=== PATIENT | male | born 1950 | race Two or more races ===

== ENCOUNTER 2020-08-09 11:20 | Emergency (ER) | payer MEDICARE, SELFPAY ==
[2020-08-09 12:00] VITALS: BP 119/79; PULSE 89; RESP 16; TEMP 36.9; O2SAT 95; BMI 31.7
--- NOTE | 2020-08-09 12:01 | ED.GENADULT ---
HPI - General Adult General Chief complaint: Extremity Problem <Amy Estrada NP - Last Filed: 08/09/20 13:51> Stated complaint: L FOOT PAIN <Amy Estrada NP - Last Filed: 08/09/20 13:51> Time Seen by Provider: 08/09/20 12:01 <Amy Estrada NP - Last Filed: 08/09/20 13:51> Source: patient <Amy Estrada NP - Last Filed: 08/09/20 13:51> Mode of arrival: ambulatory <Amy Estrada NP - Last Filed: 08/09/20 13:51> Limitations: no limitations <Amy Estrada NP - Last Filed: 08/09/20 13:51> History of Present Illness HPI narrative: 70yo male with past medical history of HTN here with left foot pain, swelling and redness x 1 week. No fevers, chills or body aches. No injury or trauma. <Amy Estrada NP - Last Filed: 08/09/20 13:51> Onset (ago): week(s) <Amy Estrada NP - Last Filed: 08/09/20 13:51> Location: lower extremity <Amy Estrada NP - Last Filed: 08/09/20 13:51> Radiation: non-radiation <Amy Estrada NP - Last Filed: 08/09/20 13:51> Severity: mild <Amy Estrada NP - Last Filed: 08/09/20 13:51> Quality: aching <Amy Estrada NP - Last Filed: 08/09/20 13:51> Pain Consistency: constant <Amy Estrada NP - Last Filed: 08/09/20 13:51> Relieving factors: none <Amy Estrada NP - Last Filed: 08/09/20 13:51> Exacerbating factors: none <Amy Estrada NP - Last Filed: 08/09/20 13:51> Associated symptoms: rash <Amy Estrada NP - Last Filed: 08/09/20 13:51> Treatments prior to arrival: none <Amy Estrada NP - Last Filed: 08/09/20 13:51> Related Data Home medications: Previous Rx's Medication Instructions Recorded doxycycline monohydrate 100 mg PO BID #14 cap 08/09/20 prednisone 40 mg PO DAILY #10 tab 08/09/20 <Amy Estrada NP - Last Filed: 08/09/20 13:51> Allergies/adverse reactions: Allergies Allergy/AdvReac Type Severity Reaction Status Date / Time No Known Allergies Allergy Unverified 04/07/20 15:15 <Amy Estrada NP - Last Filed: 08/09/20 13:51> Review of Systems Review of Systems: Yes all other systems are reviewed and are negative <Amy Estrada NP - Last Filed: 08/09/20 13:51> Constitutional: Constitutional: Reports no additional constitutional complaints, Denies body ache(s), Denies chills, Denies fever(s), Denies headache(s) and Denies weakness <Amy Estrada NP - Last Filed: 08/09/20 13:51> Eyes: Eyes: Reports no additional eye complaints and Denies change in vision <Amy Estrada NP - Last Filed: 08/09/20 13:51> ENT: Reports system reviewed and no additional complaints, except as documented, Denies dizziness, Denies headache(s), Denies nasal congestion, Denies nasal discharge and Denies neck pain <Amy Estrada NP - Last Filed: 08/09/20 13:51> Cardiovascular: Cardiovascular: Reports no additional cardiovascular complaints, Denies chest pain, Denies leg edema and Denies dyspnea <Amy Estrada NP - Last Filed: 08/09/20 13:51> Respiratory: Respiratory: Reports no additional respiratory complaints, Denies cough and Denies dyspnea <Amy Estrada NP - Last Filed: 08/09/20 13:51> Gastrointestinal: Gastrointestinal: Reports no additional gastrointestinal complaints, Denies abdominal pain, Denies diarrhea, Denies nausea and Denies vomiting <Amy Estrada NP - Last Filed: 08/09/20 13:51> Genitourinary: Genitourinary: Denies urinary incontinence <Amy Estrada NP - Last Filed: 08/09/20 13:51> Musculoskeletal: Musculoskeletal: Reports no additional musculoskeletal complaints, Denies back pain, Reports arthralgias, Reports joint swelling, Denies neck pain, Denies numbness and Denies tingling <Amy Estrada NP - Last Filed: 08/09/20 13:51> Integumentary/Breasts: Skin/Breast: Reports system reviewed and no additional complaints, except as docu and Denies rash <Amy Estrada NP - Last Filed: 08/09/20 13:51> Neurologic: Reports system reviewed and no additional complaints, except as documented, Denies Abnormal speech present, Denies dizziness, Denies headache(s), Denies numbness, Denies tingling and Denies weakness <Amy Estrada NP - Last Filed: 08/09/20 13:51> [facility] Past Medical History Attestation statement: The following information was validated with the patient. <Amy Estrada NP - Last Filed: 08/09/20 13:51> Source: old records reviewed and nursing notes reviewed <Amy Estrada NP - Last Filed: 08/09/20 13:51> Medical History: Medical History Hypertension <Amy Estrada NP - Last Filed: 08/09/20 13:51> Social History Social History: Social History Advance Directives: No Advance Directives Information Provided: No <Amy Estrada NP - Last Filed: 08/09/20 13:51> Physical Exam Vital Signs: Vital Signs: Last Vital Signs Temp 98.4 F 08/09/20 12:00 Pulse 89 08/09/20 12:00 Resp 16 08/09/20 12:00 BP 119/79 08/09/20 12:00 Pulse Ox 95 08/09/20 12:00 Body Mass Index 31.7 <Amy Estrada NP - Last Filed: 08/09/20 13:51> Vital Signs: Last Vital Signs Temp 98.4 F 08/09/20 12:00 Pulse 89 08/09/20 12:00 Resp 16 08/09/20 12:00 BP 119/79 08/09/20 12:00 Pulse Ox 95 08/09/20 12:00 Body Mass Index 31.7 <Dc Garcia MD - Last Filed: 08/17/20 07:14> Const: General: cooperative, healthy appearing, comfortable and no acute distress <Amy Estrada NP - Last Filed: 08/09/20 13:51> Orientation/consciousness: patient oriented x3 <Amy Estrada NP - Last Filed: 08/09/20 13:51> Limitations: no limitations <Amy Estrada NP - Last Filed: 08/09/20 13:51> HENMT: Head: Yes normal to inspection <Amy Estrada NP - Last Filed: 08/09/20 13:51> Ears: hearing grossly normal bilaterally <Amy Estrada NP - Last Filed: 08/09/20 13:51> General nose exam: Normal external nose present <Amy Estrada NP - Last Filed: 08/09/20 13:51> Face and sinus: Yes normal facial exam <Amy Estrada NP - Last Filed: 08/09/20 13:51> Mouth: Normal oral and palatal mucosa present <Amy Estrada NP - Last Filed: 08/09/20 13:51> Throat: Yes posterior oropharynx normal <Amy Estrada NP - Last Filed: 08/09/20 13:51> Eyes: General: appearance normal, both eyes and all related structures <Amy Estrada NP - Last Filed: 08/09/20 13:51> Pupils: Equal, round and reactive pupils present <Amy Estrada NP - Last Filed: 08/09/20 13:51> Neck: Neck: Yes normal visual inspection <Amy Estrada NP - Last Filed: 08/09/20 13:51> Chest: Chest palpation & inspection: normal inspection of the chest <Amy Estrada NP - Last Filed: 08/09/20 13:51> Resp: Effort & Inspection: normal respiratory effort <Amy Estrada NP - Last Filed: 08/09/20 13:51> Auscultation: clear to auscultation bilaterally <Amy Estrada NP - Last Filed: 08/09/20 13:51> Cardio: Rate: regular rate <Amy Estrada [employer] - Last Filed: 08/09/20 13:51> Rhythm: regular rhythm <Amy Estrada NP - Last Filed: 08/09/20 13:51> Peripheral pulses: Peripheral pulses 2+ throughout <Amy Estrada NP - Last Filed: 08/09/20 13:51> GI: Inspection: Yes normal to inspection <Amy Estrada NP - Last Filed: 08/09/20 13:51> Palpation (GI): Soft to palpation and nontender <Amy Estrada [employer] - Last Filed: 08/09/20 13:51> Auscultation: normal bowel sounds <Amy Estrada NP - Last Filed: 08/09/20 13:51> Back/Spine/Pelvis: Thoracic/Lumbar Spine: thoracic and lumbar spine normal to inspection <Amy Estrada NP - Last Filed: 08/09/20 13:51> Skin: General skin exam: no rashes or lesions noted <Amy Estrada NP - Last Filed: 08/09/20 13:51> Neuro: General: patient oriented x3, no focal motor deficits and normal sensation to monofilament <Amy Estrada NP - Last Filed: 08/09/20 13:51> Cranial nerves: Yes Equal, round and reactive pupils present <Amy Esrtada NP - Last Filed: 08/09/20 13:51> Cognition (Neuro): normal cognition <Amy Estrada NP - Last Filed: 08/09/20 13:51> Speech: No Abnormal speech present <Amy Estrada NP - Last Filed: 08/09/20 13:51> Gait exam (Neuro): Normal gait present <Amy Estrada NP - Last Filed: 08/09/20 13:51> Motor exam (neuro): 5/5 motor strength present throughout <Amy Estrada NP - Last Filed: 08/09/20 13:51> Extrem: Other: To the distal dorsal left foot there is redness and swelling, pain more localized over the 1st proximal MTP but diffuse tenderness and redness and swelling. FROM, Palpabe distal pulse. <Amy Estrada NP - Last Filed: 08/09/20 13:51> Course Course Course Narrative: 1200-70 yo male with past medical history of HTN here with left foot swelling, redness, pain x 1 week with no injury or trauma. Will check x-ray. 1345-X-rays shows no acute bony abnormality. Exam c/w with cellulitis, may also have component of underlying gout as well. No fevers, chills. No circumferential swelling or redness. Reviewed worrisome signs/symptoms with patient and when to return to ED. Comfortable with discharge home. <Amy Estrada NP - Last Filed: 08/09/20 13:51> I have reviewed the chart <Dc Garcia MD - Last Filed: 08/17/20 07:14> Medical Decision Making Medical Records Medical records reviewed: Yes I reviewed the patient's medical records. <Amy Estrada NP - Last Filed: 08/09/20 13:51> Lab Data Lab results reviewed: Yes I reviewed the patient's lab results. <Amy Estrada NP - Last Filed: 08/09/20 13:51> Imaging Data foot xray: Attestation: I personally reviewed and interpreted this imaging study as follows: <Amy Estrada NP - Last Filed: 08/09/20 13:51> Radiologist's impression: INATION: XR FOOT, LEFT CLINICAL INFORMATION: Swelling and redness. COMPARISON: None TECHNIQUE: AP, lateral, and oblique views of the left foot. FINDINGS: There is hallux valgus deformity first MTP joint. No visible acute fracture, dislocation or subluxation seen. The ankle mortise and subtalar joints are normal. No bony erosive changes seen. Mild distal dorsal foot soft tissue swelling is noted XR/XR foot LT 2V IMPRESSION: Mild distal dorsal foot soft tissue swelling. No visible acute fracture or dislocation. Mild hallux valgus deformity first MTP joint. <Amy Estrada NP - Last Filed: 08/09/20 13:51> Discharge Plan Discharge Clinical Impression: Cellulitis, Gout <Amy Estrada NP - Last Filed: 08/09/20 13:51> Patient Disposition: Home, Self-Care <Amy Estrada NP - Last Filed: 08/09/20 13:51> Instructions: Cellulitis (ED), Gout (ED) <Amy Estrada NP - Last Filed: 08/09/20 13:51> Additional Instructions: Return for fever 100.4, redness up the leg as discussed <Amy Estrada NP - Last Filed: 08/09/20 13:51> Prescriptions: New prednisone 20 mg tablet 40 mg PO DAILY Qty: 10 RF: 0 doxycycline monohydrate 100 mg capsule 100 mg PO BID Qty: 14 RF: 0 <Amy Estrada NP - Last Filed: 08/09/20 13:51> Interventions: ED Discharge Assessment Last Done: 08/09/20 13:20 <Amy Estrada NP - Last Filed: 08/09/20 13:51> Discharge Date/Time: 08/09/20 13:21 <Amy Estrada NP - Last Filed: 08/09/20 13:51>
--- NOTE | 2020-08-09 12:05 | XR_ITS ---
EXAMINATION: XR FOOT, LEFT CLINICAL INFORMATION: Swelling and redness. COMPARISON: None TECHNIQUE: AP, lateral, and oblique views of the left foot. FINDINGS: There is hallux valgus deformity first MTP joint. No visible acute fracture, dislocation or subluxation seen. The ankle mortise and subtalar joints are normal. No bony erosive changes seen. Mild distal dorsal foot soft tissue swelling is noted XR/XR foot LT 2V IMPRESSION: Mild distal dorsal foot soft tissue swelling. No visible acute fracture or dislocation. Mild hallux valgus deformity first MTP joint.
== END 2020-08-09 13:21 | disposition home or self-care (01) ==
LOC: HO.ED 13:14
PROVIDERS: Emergency Provider Emergency Medicine
DX: L03.116 Cellulitis of left lower limb (principal); M10.072 Idiopathic gout, left ankle and foot; I10 Essential (primary) hypertension
CPT/HCPCS: 73620; 99283

== ENCOUNTER 2021-05-04 09:51 | Emergency (ER) | payer MEDICARE, OTHER, SELFPAY ==
[2021-05-04 10:31] VITALS: BP 140/83; PULSE 93; RESP 18; TEMP 36.9; O2SAT 96; BMI 32.3
--- NOTE | 2021-05-04 10:39 | PC.NURSE ---
pt reports he gets stomach pain and burning only when he eats. he states he drank 2 beers yesterday and did not have any of the reported symptoms. pt denies pain at this moment. he states this is new, he has never experienced this before. pt alert and oriented, vss.
[2021-05-04] MEDS: Lidocaine HCl Viscous 2 % 15 ML SOLUTION MUCOUS MEM (11:13)
[2021-05-04] MEDS: Magnesium Hydrox/Alum Hydrox 30 ML ORAL.SUSP PO (11:13)
[2021-05-04 11:19] LABS: MANUAL DIFF FLAG NO
[2021-05-04 11:23] LABS: Basophils Percent Auto 0.5 % (0-2); Eosinophils Absolute Auto 0.1 X10*3/uL (0.0-0.4); Eosinophils Percent Auto 1.4 % (0-4); Hematocrit 42.7 % (42-52); Hemoglobin 14.8 g/dl (14.0-18.0); Imm Gran Abs Auto 0.01 X10*3/uL (0.00-0.03); Imm Gran Pct Auto 0.2 % (0.0-0.4); Lymphocytes Percent Auto 35.8 % (20-40); Mean Corpuscular HGB Conc 34.7 g/dl (31.0-36.0); Mean Corpuscular Hemoglobin 31.6 pg (27.0-33.0); Mean Corpuscular Volume 91.2 fL (80-98); Mean Platelet Volume 11.8 fL (9.4-12.4); Monocytes Absolute Auto 0.7 X10*3/uL (0.1-1.2); Monocytes Percent Auto 13.1 % (2-11); Neutrophils Absolute Auto 2.8 X10*3/uL (2.0-8.3); Platelet Count 200 X10*3/uL (160-400); Red Blood Count 4.68 X10*6/uL (4.60-5.80); White Blood Count 5.7 X10*3/uL (4.8-10.8)
[2021-05-04 11:39] LABS: Alanine Aminotransferase 62 U/L (0-40); Albumin Level 4.5 g/dL (3.5-5.0); Alkaline Phosphatase 57 U/L (39-117); Anion Gap 14 (12-20); Aspartate Amino Transferase 62 U/L (5-37); Bilirubin Direct 0.4 mg/dL (0.0-0.5); Bilirubin Total 0.6 mg/dL (0.0-1.0); Blood Urea Nitrogen 12 mg/dL (9-16); Calcium 10.2 mg/dL (8.4-10.2); Carbon Dioxide 29 mmol/L (22-29); Chloride 97 mmol/L (96-108); Creatinine Clr Calc Pharmacy 74.2; Estimated Glomerular Filt Rate > 60; Glucose Random 111 mg/dL (60-115); Lipase 29 U/L (8-78); Potassium 3.6 mmol/L (3.3-5.1); Sodium 136 mmol/L (135-145); Total Protein 7.3 g/dL (6.5-8.0)
--- NOTE | 2021-05-04 11:50 | ED.ABDPAIN ---
HPI - Abdominal Pain General Chief Complaint: Abdominal Pain Stated Complaint: abd pain Time Seen by Provider: 05/04/21 10:43 Source: patient Mode of arrival: ambulatory Limitations: no limitations History of Present Illness HPI narrative: Patient comes emergency room complaining of burning pain with swallowing. Patient states it started approximately 4 days ago. Patient states that sometimes when he swallows he has a burning sensation but it does not happen always, seems to be worse with warm/hot fluids and meals. Patient states that he has a burning sensation in his stomach right after eating. Patient denies significant abdominal pain, only the burning sensation radiating up his esophagus. Patient denies vomiting, no diarrhea, no fever chills Related Data Previous Rx's Medication Instructions Recorded doxycycline monohydrate 100 mg 100 mg PO BID #14 cap 08/09/20 capsule prednisone 20 mg tablet 40 mg PO DAILY #10 tab 08/09/20 omeprazole 20 mg capsule,delayed 20 mg PO DAILY #14 cap 05/04/21 release Allergies Allergy/AdvReac Type Severity Reaction Status Date / Time No Known Allergies Allergy Unverified 12/22/20 14:44 [No Known Allergies*] Review of Systems Review of Systems Constitutional : No Weight loss, No Fever, No Chills, No Night Sweats, No Fatigue, No Malaise ENT/Mouth : No Hearing loss, No Ear Pain, No Nasal Congestion, No Sinus Pain, No Hoarseness, No sore throat, No Rhinorrhea, No Swallowing Difficulty Eyes: No Eye Pain, No Swelling, No Redness, No Foreign Body, No Discharge, No Vision Changes Cardiovascular : No Chest Pain, No SOB, No Dyspnea on Exertion, No Orthopnea, No Edema, No Palpitations Respiratory : No Cough, No Sputum, No Wheezing, No Smoke Exposure, No Dyspnea Gastrointestinal : No Nausea, No Vomiting, No Diarrhea, No Constipation, complaining esophageal and left upper quadrant burning sensation, No Hematochezia, No Melena Genitourinary : no irregular bleeding, No Dysuria, No Urinary Frequency, No Hematuria, No Urinary Incontinence, No Urgency, No Flank Pain, No Urinary Flow Changes, No Hesitancy Musculoskeletal : No joint pain, No Myalgias, No Joint Swelling Skin : No Skin Lesions, No rash Neuro : No Weakness, No Numbness, No Paresthesias, No Loss of Consciousness, No Dizziness, No Headache Psych : No Anxiety/Panic, No Depression, No SI/HI/AH/VH, No Social Issues, Heme/Lymph: No Bruising, No Bleeding,No Lymphadenopathy Endocrine : No Polyuria, No Polydipsia, No Temperature Intolerance Physical Exam Vital Signs: Vital Signs: Last Vital Signs Temp 98.5 F 05/04/21 10:31 Pulse 93 05/04/21 10:31 Resp 18 05/04/21 10:31 BP 140/83 H 05/04/21 10:31 Pulse Ox 96 05/04/21 10:31 Body Mass Index 32.3 Const: Other: Appearance: Alert. Oriented X3. No acute distress. Eyes: Pupils equal, round and reactive to light. ENT: Pharynx normal. Neck: Normal inspection. Neck supple. No lymph nodes noted. No crepitus CVS: Normal heart rate and rhythm. Pulses normal. Normal S1 and S2 Respiratory: No respiratory distress. Breath sounds normal. No Wheezing. No rales Abdomen: Soft and nontender. No rigidity. No distention. good BS x4 Skin: Skin warm and dry. Normal skin color. Normal skin turgor. Extremities: No lower extremity edema. No lower extremity edema. No Lacerations. No Rash Neuro: Oriented X 3. No motor deficit. No sensory deficit. Moving all extermities. No slurred speech. Course Course Course Narrative: Patient states that after GI cocktail, he felt much better. Patient likely having gastritis versus peptic ulcer disease. Patient instructed to follow-up with his primary care physician MDM - Abdominal Pain Lab Data Result diagrams: 05/04/21 11:15 05/04/21 11:15 Labs: Lab Results 05/04/21 05/04/21 Range/Units 11:15 11:15 WBC 5.7 (4.8-10.8) X10*3/uL RBC 4.68 (4.60-5.80) X10*6/uL Hgb 14.8 (14.0-18.0) g/dl Hct 42.7 (42-52) % MCV 91.2 (80-98) fL MCH 31.6 (27.0-33.0) pg MCHC 34.7 (31.0-36.0) g/dl RDW 14.0 (11.0-16.0) % Plt Count 200 (160-400) X10*3/uL MPV 11.8 (9.4-12.4) fL Immature Gran % (Auto) 0.2 (0.0-0.4) % Neut % (Auto) 49.0 (45-73) % Lymph % (Auto) 35.8 (20-40) % [place] % (Auto) 13.1 H (2-11) % Eos % (Auto) 1.4 (0-4) % Baso % (Auto) 0.5 (0-2) % Lymph # (Auto) 2.0 (1.2-4.9) X10*3/uL [place] # (Auto) 0.7 (0.1-1.2) X10*3/uL Eos # (Auto) 0.1 (0.0-0.4) X10*3/uL Baso # (Auto) 0.0 (0.0-0.2) X10*3/uL Abs Immat Gran (auto) 0.01 (0.00-0.03) X10*3/uL Absolute Neuts (auto) 2.8 (2.0-8.3) X10*3/uL Absolute Nucleated RBC 0.000 (0.0-0.012) X10*3/uL Nucleated RBC % (auto) 0.0 (0.0-0.2) /100WBC Sodium 136 (135-145) mmol/L Potassium 3.6 (3.3-5.1) mmol/L Chloride 97 (96-108) mmol/L Carbon Dioxide 29 (22-29) mmol/L Anion Gap 14 (12-20) BUN 12 (9-16) mg/dL Creatinine 0.85 (0.5-1.4) mg/dL Estim Creat Clear Calc 74.2 Estimated GFR > 60 Random Glucose 111 (60-115) mg/dL Calcium 10.2 (8.4-10.2) mg/dL Total Bilirubin 0.6 (0.0-1.0) mg/dL Direct Bilirubin 0.4 (0.0-0.5) mg/dL AST 62 H (5-37) U/L ALT 62 H (0-40) U/L Alkaline Phosphatase 57 (39-117) U/L Total Protein 7.3 (6.5-8.0) g/dL Albumin 4.5 (3.5-5.0) g/dL Lipase 29 (8-78) U/L Discharge Plan Discharge Clinical Impression: Gastritis Patient Disposition: Home, Self-Care Instructions: Gastritis (ED) Additional Instructions: Please follow-up with your primary care physician tomorrow. If you have any worsening or new symptoms, please return to the emergency room or call 911 Prescriptions: New omeprazole 20 mg capsule,delayed release(DR/EC) 20 mg PO DAILY Qty: 14 RF: 0 No Action prednisone 20 mg tablet 40 mg PO DAILY Qty: 10 RF: 0 doxycycline monohydrate 100 mg capsule 100 mg PO BID Qty: 14 RF: 0 PMFSH Past Medical History Medical History Hypertension Social History Social History (System 12/22/20 @ 14:44 by Aleshia Gilliam) Advance Directives: No Advance Directives Information Provided: No
[2021-05-04 12:47] VITALS: BP 125/74; PULSE 89; RESP 18; O2SAT 98
--- NOTE | 2021-05-04 12:55 | PC.NURSE ---
pt medically cleared for discharge, vss, pt alert and oriented. discharge summary given and reviewed with pt. no complaints.
== END 2021-05-04 12:56 | disposition home or self-care (01) ==
PROVIDERS: Emergency Provider Emergency Medicine; PCP Internal Medicine
DX: K29.70 Gastritis, unspecified, without bleeding (principal)
CPT/HCPCS: 36415; 80048; 80076; 83690; 85025; 99284

== ENCOUNTER 2021-08-15 11:31 | Emergency (ER) | payer MEDICARE, OTHER, SELFPAY ==
--- NOTE | ~2021-08-15 | XR_ITS ---
EXAMINATION: XR RIBS, LEFT CLINICAL INFORMATION: [place] crack. Left chest wall pain. COMPARISON: Previous chest x-ray most recent September 2017 TECHNIQUE: 3 views of the left ribs were obtained. FINDINGS: The cardiac and mediastinal contours are normal. The lungs are clear. There is slight blunting at the left lateral costophrenic angle questionable very small left pleural effusion or pleural thickening. There is no pneumothorax. No definite rib fracture is seen. There is slight angulation of the left anterior seventh rib questionable for evidence of trauma. Bony structures are otherwise unremarkable. XR/XR ribs LT min 3V w CXR1V IMPRESSION: Question left anterior seventh rib fracture.
[2021-08-15 11:42] VITALS: BP 148/83; PULSE 85; RESP 19; TEMP 36.6; O2SAT 97; BMI 32.1
--- NOTE | 2021-08-15 12:09 | ED_ITS ---
HPI - General Adult General Chief complaint: General Medical <Amy Estrada NP - Last Filed: 08/15/21 13:56> Stated complaint: rib pain <JUAN DANIEL Jaeger Last Filed: 08/15/21 13:56> Time Seen by Provider: 08/15/21 11:48 <Amy Estrada NP - Last Filed: 08/15/21 13:56> Source: patient <Amy Estrada NP - Last Filed: 08/15/21 13:56> Mode of arrival: ambulatory <JUAN DANIEL Jaeger Last Filed: 08/15/21 13:56> Limitations: no limitations <JUAN DANIEL Jaeger Last Filed: 08/15/21 13:56> History of Present Illness HPI narrative: 71-year-old male here with reports of left-sided rib pain after bending down and hearing a crack sensation on Saturday. Patient now tells me his pain which is worsened with laying down and position changes. No shortness of breath, cough, fevers, chills, leg swelling or pain. No anticoagulation use. No abdominal pain, vomiting or diarrhea <JUAN DANIEL Jaeger Last Filed: 08/15/21 13:56> Related Data Home medications: Previous Rx's Medication Instructions Recorded doxycycline monohydrate 100 mg 100 mg PO BID #14 cap 08/09/20 capsule prednisone 20 mg tablet 40 mg PO DAILY #10 tab 08/09/20 omeprazole 20 mg capsule,delayed 20 mg PO DAILY #14 cap 05/04/21 release lidocaine 5 % topical patch 1 patch TOPICAL DAILY #15 ea 08/15/21 (Lidoderm) <JUAN DANIEL Jaeger Last Filed: 08/15/21 13:56> Allergies/adverse reactions: Allergies Allergy/AdvReac Type Severity Reaction Status Date / Time No Known Allergies Allergy Unverified 12/22/20 14:44 [No Known Allergies*] <JUAN DANIEL Jaeger Last Filed: 08/15/21 13:56> Review of Systems Review of Systems: Yes all other systems are reviewed and are negative <JUAN DANIEL Jaeger Last Filed: 08/15/21 13:56> Constitutional: Constitutional: Reports no additional constitutional complaints, Denies body ache(s), Denies chills, Denies fever(s), Denies headache(s) and Denies weakness <Amy Estrada NP - Last Filed: 08/15/21 13:56> Eyes: Eyes: Reports no additional eye complaints and Denies change in vision <Amy Estrada GAME ROOM ATTENDANT - Last Filed: 08/15/21 13:56> ENT: Reports system reviewed and no additional complaints, except as documented, Denies dizziness, Denies headache(s), Denies nasal congestion, Denies nasal discharge and Denies neck pain <Amy Estrada GAME ROOM ATTENDANT - Last Filed: 08/15/21 13:56> Cardiovascular: Cardiovascular: Reports no additional cardiovascular complaints, Reports chest pain, Denies leg edema and Denies dyspnea <Amy Estrada GAME ROOM ATTENDANT - Last Filed: 08/15/21 13:56> Respiratory: Respiratory: Reports no additional respiratory complaints, Denies cough and Denies dyspnea <Amy Estrada GAME ROOM ATTENDANT - Last Filed: 08/15/21 13:56> Gastrointestinal: Gastrointestinal: Reports no additional gastrointestinal complaints, Denies abdominal pain, Denies diarrhea, Denies nausea and Denies vomiting <Amy Estrada GAME ROOM ATTENDANT - Last Filed: 08/15/21 13:56> Genitourinary: Genitourinary: Denies urinary incontinence <Amy Estrada GAME ROOM ATTENDANT - Last Filed: 08/15/21 13:56> Musculoskeletal: Musculoskeletal: Reports no additional musculoskeletal complaints, Denies back pain, Denies arthralgias, Denies joint swelling, Denies neck pain, Denies numbness and Denies tingling <Amy Estrada GAME ROOM ATTENDANT - Last Filed: 08/15/21 13:56> Integumentary/Breasts: Skin/Breast: Reports system reviewed and no additional complaints, except as docu and Denies rash <Amy Estrada GAME ROOM ATTENDANT - Last Filed: 08/15/21 13:56> Neurologic: Reports system reviewed and no additional complaints, except as documented, Denies Abnormal speech present, Denies dizziness, Denies headache( s), Denies numbness, Denies tingling and Denies weakness <Amy Estrada NP - Last Filed: 08/15/21 13:56> PMFSH Past Medical History Attestation statement: The following information was validated with the patient. <Amy Estrada NP - Last Filed: 08/15/21 13:56> Source: old records reviewed and nursing notes reviewed <Amy Estrada NP - Last Filed: 08/15/21 13:56> Medical History: Medical History Hypertension <Amy Estrada NP - Last Filed: 08/15/21 13:56> Social History Social History: Social History Advance Directives: No Advance Directives Information Provided: No <Amy Estrada NP - Last Filed: 08/15/21 13:56> Physical Exam Vital Signs: Vital Signs: Last Vital Signs Temp 98 F 08/15/21 11:42 Pulse 85 08/15/21 11:42 Resp 19 08/15/21 11:42 BP 148/83 H 08/15/21 11:42 Pulse Ox 97 08/15/21 11:42 BMI result Body Mass Index 32.1 <Amy Estrada NP - Last Filed: 08/15/21 13:56> Vital Signs: Last Vital Signs Temp 98 F 08/15/21 11:42 Pulse 85 08/15/21 11:42 Resp 08/15/21 11:42 BP 148/83 H 08/15/21 11:42 Pulse Ox 97 08/15/21 11:42 BMI result Body Mass Index 32.1 <Jaime Ruiz MD - Last Filed: 08/15/21 14:01> Const: General: cooperative, healthy appearing, comfortable and no acute distress <Amy Estrada NP - Last Filed: 08/15/21 13:56> Orientation/consciousness: patient oriented x3 <Amy Estrada NP - Last Filed: 08/15/21 13:56> Limitations: no limitations <Amy Estrada NP - Last Filed: 08/15/21 13:56> HENMT: Head: Yes normal to inspection <Amy Estrada NP - Last Filed: 08/15/21 13:56> Ears: hearing grossly normal bilaterally <Amy Estrada NP - Last Filed: 08/15/21 13:56> General nose exam: Normal external nose present <Amy Estrada NP - Last Filed: 08/15/21 13:56> Face and sinus: Yes normal facial exam <Amy Estrada NP - Last Filed: 08/15/21 13:56> Mouth: Normal oral and palatal mucosa present <Amy Estrada NP - Last Filed: 08/15/21 13:56> Throat: Yes posterior oropharynx normal <Amy Estrada NP - Last Filed: 08/15/21 13:56> Eyes: General: appearance normal, both eyes and all related structures <Amy Estrada NP - Last Filed: 08/15/21 13:56> Pupils: Equal, round and reactive pupils present <Amy Estrada NP - Last Filed: 08/15/21 13:56> Neck: Neck: Yes normal visual inspection <Amy Estrada NP - Last Filed: 08/15/21 13:56> Chest: Chest palpation & inspection: normal inspection of the chest and tenderness (Left lateral chest wall/ribs. No ecchymosis, crepitus or deformity) <Amy Estrada NP - Last Filed: 08/15/21 13:56> Resp: Effort & Inspection: normal respiratory effort <Amy Estrada NP - Last Filed: 08/15/21 13:56> Auscultation: clear to auscultation bilaterally <Amy Estrada NP - Last Filed: 08/15/21 13:56> Cardio: Rate: regular rate <Amy Estrada NP - Last Filed: 08/15/21 13:56> Rhythm: regular rhythm <Amy Estrada NP - Last Filed: 08/15/21 13:56> Peripheral pulses: Peripheral pulses 2+ throughout <Amy Estrada NP - Last Filed: 08/15/21 13:56> GI: Inspection: Yes normal to inspection <Amy Estrada NP - Last Filed: 08/15/21 13:56> Palpation (GI): Soft to palpation and nontender <Amy Estrada NP - Last Filed: 08/15/21 13:56> Auscultation: normal bowel sounds <Amy Estrada NP - Last Filed: 08/15/21 13:56> Back/Spine/Pelvis: Thoracic/Lumbar Spine: thoracic and lumbar spine normal to inspection <Amy Estrada NP - Last Filed: 08/15/21 13:56> Skin: General skin exam: no rashes or lesions noted <Amy Estrada NP - Last Filed: 08/15/21 13:56> Neuro: General: patient oriented x3, no focal motor deficits and normal sensation to monofilament <Amy Estrada NP - Last Filed: 08/15/21 13:56> Cranial nerves: Yes Equal, round and reactive pupils present <Amy Estrada NP - Last Filed: 08/15/21 13:56> Cognition (Neuro): normal cognition <Amy Estrada NP - Last Filed: 08/15/21 13:56> Speech: No Abnormal speech present <Amy Estrada NP - Last Filed: 08/15/21 13:56> Gait exam (Neuro): Normal gait present <Amy Estrada NP - Last Filed: 08/15/21 13:56> Motor exam (neuro): 5/5 motor strength present throughout <Amy Estrada NP - Last Filed: 08/15/21 13:56> Extrem: General: Yes normal to inspection, Yes no pedal edema and Yes no calf tenderness <Amy Estrada NP - Last Filed: 08/15/21 13:56> Course Course Course Narrative: 71-year-old male here with left-sided rib pain after bending down and hearing a crack sensation on Saturday. Will check x-rays. 1330-x-ray shows solitary rib fracture. Patient given incentive spirometer for home. Reviewed worrisome signs and symptoms of when to return to the emergency department. Comfortable discharge home. <Amy Estrada NP - Last Filed: 08/15/21 13:56> Medical Decision Making Medical Records Medical records reviewed: Yes I reviewed the patient's medical records. <Amy Estrada NP - Last Filed: 08/15/21 13:56> Lab Data Lab results reviewed: Yes I reviewed the patient's lab results. <JUAN DANIEL Jaeger Last Filed: 08/15/21 13:56> Imaging Data Chest x-ray: Attestation: I personally reviewed and interpreted this imaging study as follows: <JUAN DANIEL Jaeger Last Filed: 08/15/21 13:56> Radiologist's impression: FINDINGS: The cardiac and mediastinal contours are normal. The lungs are clear. There is slight blunting at the left lateral costophrenic angle questionable very small left pleural effusion or pleural thickening. There is no pneumothorax. No definite rib fracture is seen. There is slight angulation of the left anterior seventh rib questionable for evidence of trauma. Bony structures are otherwise unremarkable. XR/XR ribs LT min 3V w CXR1V IMPRESSION: Question left anterior seventh rib fracture. <Amy Estrada NP - Last Filed: 08/15/21 13:56> Discharge Plan Discharge Clinical Impression: Closed rib fracture Qualifiers: Encounter type: initial encounter Rib fracture type: single rib Laterality: left Qualified Code(s): S22.32XA - Fracture of one rib, left side, initial encounter for closed fracture <Amy Estrada NP - Last Filed: 08/15/21 13:56> Patient Disposition: Home, Self-Care <JUAN DANIEL Jaeger Last Filed: 08/15/21 13:56> Instructions: Rib Fracture (ED) <Amy Estrada NP - Last Filed: 08/15/21 13:56> Additional Instructions: Use the incentive spirometer while awake Seek care for fever or difficulty breathing Continue motrin for pain as needed <JUAN DANIEL Jaeger Last Filed: 08/15/21 13:56> Prescriptions: New lidocaine [Lidoderm] 5 % adhesive patch,medicated 1 patch topical DAILY Qty: 15 RF: 0 No Action prednisone 20 mg tablet 40 mg PO DAILY Qty: 10 RF: 0 doxycycline monohydrate 100 mg capsule 100 mg PO BID Qty: 14 RF: 0 omeprazole 20 mg capsule,delayed release(DR/EC) 20 mg PO DAILY Qty: 14 RF: 0 <Amy Estrada NP - Last Filed: 08/15/21 13:56> Referrals: Physician,None [Primary Care Provider] - 2 days <Amy Estrada NP - Last Filed: 08/15/21 13:56> Print Language: Sami <Amy Estrada NP - Last Filed: 08/15/21 13:56>
== END 2021-08-15 14:08 | disposition home or self-care (01) ==
PROVIDERS: Emergency Provider Emergency Medicine
DX: S22.32XA Fracture of one rib, left side, initial encounter for closed fracture (principal); R07.81 Pleurodynia; W18.30XA Fall on same level, unspecified, initial encounter; Y93.9 Activity, unspecified; Y92.009 Unspecified place in unspecified non-institutional (private) residence as the place of occurrence of the external cause; Y99.9 Unspecified external cause status; Z79.899 Other long term (current) drug therapy
CPT/HCPCS: 71101; 99283; 99284

== ENCOUNTER 2022-01-03 11:10 | Emergency (ER) | payer MEDICARE, OTHER, SELFPAY ==
--- NOTE | ~2022-01-03 | XR_ITS ---
EXAMINATION: XR CHEST CLINICAL INFORMATION: Bilateral leg swelling COMPARISON: None TECHNIQUE: 2 views of the chest were obtained. FINDINGS: No significant abnormality is noted involving the heart, lungs, mediastinum, bony thorax or soft tissues. XR/XR chest 2V IMPRESSION: Unremarkable examination.
--- NOTE | ~2022-01-03 | US_ITS ---
EXAMINATION: US VENOUS ULTRASOUND WITH DOPPLER LOWER EXTREMITY, BILATERAL CLINICAL INFORMATION: Lower extremity edema. Right greater than left. COMPARISON: None TECHNIQUE: Ultrasound of the deep veins is performed from the hip to the calf with compression sonography and color and pulse Doppler assessment. Spectral analysis with color-flow imaging is performed. FINDINGS: RIGHT: There is normal venous compression and respiratory variation and augmented flow. The visualized common femoral vein, superficial femoral vein, profunda femoral vein, popliteal vein, and the trifurcation region shows no evidence of deep venous thrombosis. There is no significant popliteal fossa cyst. LEFT: There is normal venous compression and respiratory variation and augmented flow. The visualized common femoral vein, superficial femoral vein, profunda femoral vein, popliteal vein, and the trifurcation region shows no evidence of deep venous thrombosis. There is no significant popliteal fossa cyst. If the patient's symptoms persist, followup ultrasound in 5 days 7 days might be of value to exclude proximal propagation from a non-visualized calf vein. US/US venous duplex LE BI IMPRESSION: No DVT demonstrated in the bilateral lower extremity.
[2022-01-03 11:34] VITALS: BP 167/84; PULSE 92; RESP 18; TEMP 36.6; O2SAT 98; BMI 34.0
--- NOTE | 2022-01-03 11:36 | ECG_ITS ---
Test Reason : swollen legs Blood Pressure : / mmHG Vent. Rate : 089 BPM Atrial Rate : 089 BPM P-R Int : 152 ms QRS Dur : 128 ms QT Int : 374 ms P-R-T Axes : 057 -19 -05 degrees QTc Int : 455 ms Normal sinus rhythm Right bundle branch block Abnormal ECG No previous ECGs available Referred By: Generic ED Physician Electronically Signed By:STANISLAV CALZADA MD
[2022-01-03 12:07] LABS: MANUAL DIFF FLAG NO
[2022-01-03 12:08] LABS: Basophils Percent Auto 0.4 % (0-2); Eosinophils Absolute Auto 0.2 X10*3/uL (0.0-0.4); Eosinophils Percent Auto 2.2 % (0-4); Hematocrit 38.9 % (42.0-52.0); Hemoglobin 13.4 g/dl (14.0-18.0); Imm Gran Abs Auto 0.03 X10*3/uL (0.00-0.03); Imm Gran Pct Auto 0.4 % (0.0-0.4); Lymphocytes Absolute Auto 1.9 X10*3/uL (1.2-4.9); Lymphocytes Percent Auto 24.7 % (20-40); Mean Corpuscular HGB Conc 34.4 g/dl (31.0-36.0); Mean Corpuscular Hemoglobin 31.1 pg (27.0-33.0); Mean Corpuscular Volume 90.3 fL (80.0-98.0); Monocytes Absolute Auto 0.7 X10*3/uL (0.1-1.2); Monocytes Percent Auto 8.5 % (2-11); Neutrophils Percent Auto 63.8 % (45-73); Platelet Count 167 X10*3/uL (160-400); Red Blood Count 4.31 X10*6/uL (4.60-5.80); Red Cell Distribution Width 15.6 % (11.0-16.0); White Blood Count 7.8 X10*3/uL (4.8-10.8)
[2022-01-03 12:28] LABS: Anion Gap 16 (12-20); Blood Urea Nitrogen 14 mg/dL (9-16); Calcium 9.2 mg/dL (8.4-10.2); Carbon Dioxide 26 mmol/L (22-29); Chloride 102 mmol/L (96-108); Creatinine Clr Calc Pharmacy 82.9; Estimated Glomerular Filt Rate > 60; Glucose Random 104 mg/dL (60-115); Sodium 140 mmol/L (135-145)
[2022-01-03 12:35] LABS: B Type Natriuretic Peptide 49 pg/mL (<100); Troponin-I High Sensitivity 5.3 ng/L (<3.5-35.0)
--- NOTE | 2022-01-03 15:42 | ED_ITS ---
HPI - General Adult General Chief complaint: General Medical Stated complaint: both leg pain Time Seen by Provider: 01/03/22 15:15 Source: patient Mode of arrival: ambulatory Limitations: no limitations History of Present Illness HPI narrative: 71-year-old male who presents emergency department for evaluation of by lower extremity swelling since October of 2021 (3 months). The patient states that he had similar swelling many years ago and was on a water pill but has not been on this for least 3-4 years . He states that over the last 3 months he has had swelling in his lower extremities. He states that in the morning the swelling is minimal but by the time he goes to bed the swelling is moderate to severe. He states that the swelling is greater in his right lower extremity than his left in over the past 3-4 days he has had pain in his left foot and his right lower extremity. States the pain is a constant, cramping sensation which is [id number] in intensity. Patient also states that he gets right groin pain when he has an erection he has intercourse. He states that he has noticed this for the last several months as well. He does not have any difficulty getting an erection. He denied fever, chills, sore throat, chest pain, shortness of breath, dyspnea on exertion, nausea, vomiting, diarrhea, dark tarry stools or bloody stools. He states that he has had rhinorrhea and a cough but he attributes this to the pollen in the air and he has had this before in the past. The patient states that he has fatty liver and used to drink 12-16 beers per day but he has cut down to 3-4 beers per day. MD complaint: Bilateral lower extremity swelling and leg pain Onset (ago): month(s) (3) Location: lower extremity (Bilateral) Radiation: non-radiation Severity: moderate Severity scale (1-10): 4 Quality: other (Cramping) Pain Consistency: constant Relieving factors: none Associated symptoms: denies other symptoms Treatments prior to arrival: none Related Data Previous Rx's Medication Instructions Recorded doxycycline monohydrate 100 mg 100 mg PO BID #14 caps 08/09/20 capsule prednisone 20 mg tablet 40 mg PO DAILY #10 tabs 08/09/20 omeprazole 20 mg capsule,delayed 20 mg PO DAILY #14 caps 05/04/21 release lidocaine 5 % topical patch 1 patch topical DAILY #15 ea 08/15/21 (Lidoderm) furosemide 40 mg tablet (Lasix) 40 mg PO DAILY 30 days #30 tabs 01/03/22 potassium chloride 10 mEq 10 meq PO DAILY #30 tabs 01/03/22 tablet,extended release(part/cryst) Allergies Allergy/AdvReac Type Severity Reaction Status Date / Time No Known Allergies Allergy Unverified 12/22/20 14:44 [No Known Allergies*] Review of Systems Review of Systems: Yes all other systems are reviewed and are negative [facility] Past Medical History [facility] Narrative: Social history: The patient is a former smoker, he quit smoking 10 years prior. He was smoking 1/2-1 pack per day of cigarettes times 40 years. The patient states that he did drink heavily in the past but has cut down to 3-4 beers per day. He denies drug use. Medical History Hypertension Social History Social History Alcohol intake: current Alcohol intake frequency: 3 or more drinks per day Patient Tobacco Use Status: Former Tobacco user Smoked in Last 30 Days: No Use of substances other than those prescribed or required for medical reasons: No Advance Directives: No Physical Exam ED Vital Signs: Vital Signs - 24 hr 01/03/22 11:34 01/03/22 18:00 Temperature 98 F 98.5 F Pulse Rate 92 81 Respiratory Rate 18 16 Blood Pressure 167/84 H 154/87 H Pulse Oximetry 98 97 Oxygen Delivery Method Room Air Room Air BMI result Body Mass Index 34.0 Const General: cooperative and no acute distress Orientation/consciousness: oriented to person and oriented to place Limitations: no limitations [facility] Head: Yes normal to inspection, Yes normocephalic and Yes atraumatic Ears: external ears normal General nose exam: Normal external nose present Face and sinus: Yes normal facial exam Mouth: Normal oral and palatal mucosa present Throat: Yes posterior oropharynx normal Eyes General: appearance normal, both eyes and all related structures Pupils: Equal, round and reactive pupils present Neck Neck: Yes normal visual inspection, Yes no lymphadenopathy, Yes trachea midline and Yes supple Chest Chest palpation & inspection: normal inspection of the chest and normal palpation of entire chest wall Resp Effort & Inspection: normal respiratory effort and able to speak in complete sentences Auscultation: clear to auscultation bilaterally Cardio Rate: regular rate Rhythm: regular rhythm Heart sounds: S1 normal heart sound present, S2 normal heart sound present and no murmurs GI Inspection: Yes normal to inspection Palpation (GI): Soft to palpation, nontender and no guarding Auscultation: normal bowel sounds Other: Normal circumcised male penis, testicles are descended bilaterally, there is no testicular tenderness, no scrotal abnormalities, the patient does have some tenderness palpation of the right groin area, there is no director indirect inguinal hernia that I pain tract on my examination Skin General skin exam: no rashes or lesions noted Neuro General: oriented to person and oriented to place Cranial nerves: Yes CN's II-XII intact bilaterally and Yes Equal, round and reactive pupils present Cognition (Neuro): normal cognition Motor exam (neuro): 5/5 motor strength present throughout Extrem Other: Bilateral trace to 1+ pitting edema Psych Appearance: grossly normal Speech and movement: Normal speech and movement present Affect: normal affect Attitude: cooperative Thought process: Normal thought process present Thought content: Normal thought content present Course Course Course Narrative: 71-year-old male who presents emergency department for evaluation of 2 chief complaints, 1st complaint is bilateral lower extremity swelling which he has had for 3 months, he has also had pain in his foot in his right calf. He is also complaining of right groin pain when he has an erection as intercourse. The patient's vital signs did reveal an elevated blood pressure of 167/84, patient does have essential hypertension. His exam did reveal bilateral pitting edema right greater than the left, your exam was unremarkable. Laboratory evaluation was ordered by protocol. CBC and BMP were unremarkable. BNP was only 49 and th e patient's high sensitivity troponin I was detectable at 5.3 but not elevated. I did add a liver profile to the patient's laboratory evaluation and I will also obtain a bilateral Doppler ultrasound to rule out DVT 181: Liver panel was unremarkable. Bilateral Doppler ultrasounds of the lower extremity revealed no DVTs. Patient's presentation is consistent with peripheral edema of unclear etiology. Patient started on Lasix 40 mg daily and potassium daily for 2 weeks. Patient was advised to restrict his fluid intake and to follow-up with his PCP for re-evaluation. The patient will be referred to Urology for his groin pain that he is experiencing with his erection. Medical Decision Making Lab Data Result diagrams: 01/03/22 11:55 01/03/22 11:55 Labs: Lab Results 01/03/22 01/03/22 01/03/22 Range/Units 11:55 11:55 11:55 WBC 7.8 (4.8-10.8) X10*3/uL RBC 4.31 L (4.60-5.80) X10*6/uL Hgb 13.4 L (14.0-18.0) g/dl Hct 38.9 L (42.0-52.0) % MCV 90.3 (80.0-98.0) fL MCH 31.1 (27.0-33.0) pg MCHC 34.4 (31.0-36.0) g/dl RDW 15.6 (11.0-16.0) % Plt Count 167 (160-400) X10*3/uL MPV 12.0 (9.4-12.4) fL Immature Gran % (Auto) 0.4 (0.0-0.4) % Neut % (Auto) 63.8 (45-73) % Lymph % (Auto) 24.7 (20-40) % Hunt % (Auto) 8.5 (2-11) % Eos % (Auto) 2.2 (0-4) % Baso % (Auto) 0.4 (0-2) % Lymph # (Auto) 1.9 (1.2-4.9) X10*3/uL Hunt # (Auto) 0.7 (0.1-1.2) X10*3/uL Eos # (Auto) 0.2 (0.0-0.4) X10*3/uL Baso # (Auto) 0.0 (0.0-0.2) X10*3/uL Abs Immat Gran (auto) 0.03 (0.00-0.03) X10*3/uL Absolute Neuts (auto) 5.0 (2.0-8.3) x10*3/uL Absolute Nucleated RBC 0.000 (0.0-0.012) X10*3/uL Nucleated RBC % (auto) 0.0 (0.0-0.2) /100WBC Sodium 140 (135-145) mmol/L Potassium 4.0 (3.3-5.1) mmol/L Chloride 102 (96-108) mmol/L Carbon Dioxide 26 (22-29) mmol/L Anion Gap 16 (12-20) BUN 14 (9-16) mg/dL Creatinine 0.74 (0.5-1.4) mg/dL Estim Creat Clear Calc 82.9 Estimated GFR > 60 Random Glucose 104 (60-115) mg/dL Calcium 9.2 D (8.4-10.2) mg/dL Total Bilirubin 0.7 (0.0-1.0) mg/dL Direct Bilirubin 0.3 (0.0-0.5) mg/dL AST 30 D (5-37) U/L ALT 23 (0-40) U/L Alkaline Phosphatase 68 (39-117) U/L Troponin I High Sens (<3.5-35.0) ng/L B-Natriuretic Peptide 49 (<100) pg/mL Total Protein 7.4 (6.5-8.0) g/dL Albumin 4.5 (3.5-5.0) g/dL 01/03/22 Range/Units 11:55 WBC (4.8-10.8) X10*3/uL RBC (4.60-5.80) X10*6/uL Hgb (14.0-18.0) g/dl Hct (42.0-52.0) % MCV (80.0-98.0) fL MCH (27.0-33.0) pg MCHC (31.0-36.0) g/dl RDW (11.0-16.0) % Plt Count (160-400) X10*3/uL MPV (9.4-12.4) fL Immature Gran % (Auto) (0.0-0.4) % Neut % (Auto) (45-73) % Lymph % (Auto) (20-40) % Hunt % (Auto) (2-11) % Eos % (Auto) (0-4) % Baso % (Auto) (0-2) % Lymph # (Auto) (1.2-4.9) X10*3/uL Hunt # (Auto) (0.1-1.2) X10*3/uL Eos # (Auto) (0.0-0.4) X10*3/uL Baso # (Auto) (0.0-0.2) X10*3/uL Abs Immat Gran (auto) (0.00-0.03) X10*3/uL Absolute Neuts (auto) (2.0-8.3) x10*3/uL Absolute Nucleated RBC (0.0-0.012) X10*3/uL Nucleated RBC % (auto) (0.0-0.2) /100WBC Sodium (135-145) mmol/L Potassium (3.3-5.1) mmol/L Chloride (96-108) mmol/L Carbon Dioxide (22-29) mmol/L Anion Gap (12-20) BUN (9-16) mg/dL Creatinine (0.5-1.4) mg/dL Estim Creat Clear Calc Estimated GFR Random Glucose (60-115) mg/dL Calcium (8.4-10.2) mg/dL Total Bilirubin (0.0-1.0) mg/dL Direct Bilirubin (0.0-0.5) mg/dL AST (5-37) U/L ALT (0-40) U/L Alkaline Phosphatase (39-117) U/L Troponin I High Sens 5.3 (<3.5-35.0) ng/L B-Natriuretic Peptide (<100) pg/mL Total Protein (6.5-8.0) g/dL Albumin (3.5-5.0) g/dL Discharge Plan Discharge Clinical Impression: Edema, peripheral, Painful erection Patient Disposition: Home, Self-Care Instructions: Leg Edema (ED) Additional Instructions: Your laboratory evaluation was unremarkable. Your bilateral Doppler ultrasound of your lower extremities revealed no blood clots in your legs which were reassuring. Your body is holding on to too much fluid therefore I am starting you on a water pill to make you pee a lot. Take Lasix (furosemide) 40 mg once a day for 2 weeks. Take K-Dur potassium supplement once a day for 2 weeks. While you are taking the Lasix and the cage or you need to restrict the amount of fluid that you drink to reduce the amount of fluid in your body. You need to stop drinking alcohol. Follow-up with your doctor in 2 days. Please return to the emergency department if your symptoms get worse or if you develop any symptoms that are concerning to you. You should follow-up with our on-call urologist to further evaluate your painful erections. Prescriptions: New furosemide [Lasix] 40 mg tablet 40 mg PO DAILY 30 Days Qty: 30 0RF potassium chloride 10 mEq tablet,ER particles/crystals 10 meq PO DAILY Qty: 30 0RF No Action prednisone 20 mg tablet 40 mg PO DAILY Qty: 10 0RF doxycycline monohydrate 100 mg capsule 100 mg PO BID Qty: 14 0RF omeprazole 20 mg capsule,delayed release(DR/EC) 20 mg PO DAILY Qty: 14 0RF lidocaine [Lidoderm] 5 % adhesive patch,medicated 1 patch topical DAILY Qty: 15 0RF Rx Instructions: leave on most painful area for up to 12 hrs Referrals: Joselito Lyle MD [Physician] - 2 weeks (Groin pain with directions)
[2022-01-03 16:04] LABS: Alanine Aminotransferase 23 U/L (0-40); Albumin Level 4.5 g/dL (3.5-5.0); Alkaline Phosphatase 68 U/L (39-117); Aspartate Amino Transferase 30 U/L (5-37); Bilirubin Direct 0.3 mg/dL (0.0-0.5); Bilirubin Total 0.7 mg/dL (0.0-1.0); Total Protein 7.4 g/dL (6.5-8.0)
[2022-01-03 18:00] VITALS: BP 154/87; PULSE 81; RESP 16; TEMP 36.9; O2SAT 97
== END 2022-01-03 18:31 | disposition home or self-care (01) ==
PROVIDERS: Emergency Provider Emergency Medicine Emergency Medical Services; PCP Physician Assistant
DX: R60.0 Localized edema (principal); N48.30 Priapism, unspecified; M79.661 Pain in right lower leg; I10 Essential (primary) hypertension
CPT/HCPCS: 36415; 71046; 80048; 80076; 83880; 84484; 85025; 93005; 93970; 99284

== ENCOUNTER 2022-02-19 12:13 | Emergency (ER) | payer MEDICARE, OTHER, SELFPAY ==
[2022-02-19 13:06] VITALS: BP 165/100; PULSE 85; RESP 16; TEMP 36.2; O2SAT 97; BMI 33.6
--- NOTE | 2022-02-19 13:29 | ED_ITS ---
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 Patient states that the medication helps his legs and he wants more of it but he can't get into his PCP for quite some time. Patient denies any dizziness, lightheadedness, abdominal pain, nausea, vomiting, fever, chills, blurry vision, double vision, loss of vision, chest pain, difficulty breathing, shortness of breath, back pain, night sweats, pain with urination, increased urinary frequency, increased urinary urgency, blood in his urine or stool, syncope or a near syncopal episode, recent trauma or falls, bowel incontinence, bladder incontinence, bowel retention, bladder retention, or any other complaints at this time. Severity scale (1-10): 1 Relieving factors: none Exacerbating factors: none Associated symptoms: denies other symptoms Treatments prior to arrival: none Related Data Previous Rx's Medication Instructions Recorded doxycycline monohydrate 100 mg 100 mg PO BID #14 caps 08/09/20 capsule prednisone 20 mg tablet 40 mg PO DAILY #10 tabs 08/09/20 omeprazole 20 mg capsule,delayed 20 mg PO DAILY #14 caps 05/04/21 release lidocaine 5 % topical patch 1 patch topical DAILY #15 ea 08/15/21 (Lidoderm) furosemide 40 mg tablet (Lasix) 40 mg PO DAILY 30 days #30 tabs 01/03/22 potassium chloride 10 mEq 10 meq PO DAILY #30 tabs 01/03/22 tablet,extended release(part/cryst) furosemide 40 mg tablet (Lasix) 40 mg PO DAILY 60 days #60 tabs 02/19/22 potassium chloride 10 mEq 10 meq PO DAILY 60 days #60 caps 02/19/22 capsule,extended release Allergies Allergy/AdvReac Type Severity Reaction Status Date / Time No Known Allergies Allergy Unverified 12/22/20 14:44 [No Known Allergies*] Review of Systems Constitutional: Constitutional: Reports no additional constitutional complaints, Denies chills, Denies fever(s) and Denies night sweats Eyes: Eyes: Reports no additional eye complaints, Denies blurry vision, Denies change in vision, Denies diplopia, Denies eye discharge, Denies loss of vision and Denies eye pain ENT: Denies dizziness Cardiovascular: Cardiovascular: Reports no additional cardiovascular complaints, Denies chest pain, Denies lightheadedness, Denies Loss of Consciousness and Denies dyspnea Respiratory: Respiratory: Reports no additional respiratory complaints and Denies dyspnea Gastrointestinal: Gastrointestinal: Reports no additional gastrointestinal complaints, Denies abdominal pain, Denies melena, Denies hematochezia, Denies change in bowel habits and Denies change in stool character Genitourinary: Genitourinary: Reports no additional male genitourinary complaints, Denies hematuria, Denies oliguria, Denies difficulty urinating, Denies dysuria, Denies urinary frequency, Denies urinary hesitancy, Denies urinary incontinence and Denies urinary urgency Musculoskeletal: Musculoskeletal: Reports no additional musculoskeletal complaints, Denies numbness and Denies tingling Neurologic: Denies dizziness, Denies loss of vision, Denies numbness and Denie s tingling Psychiatric: Psychiatric: Reports no additional psychiatric complaints Endocrine: Endocrine: Reports no additional endocrine complaints Hematologic/Lymphatic: Hematologic/Lymphatic: Reports no additional hematologic/lymphatic complaints Allergic/Immunologic: Allergic/Immunologic: Reports no additional allergic/immunologic complaints PMFSH Past Medical History Attestation statement: The following information was validated with the patient. Source: old records reviewed Medical History Hypertension Social History Social History Alcohol intake: current Alcohol intake frequency: holidays/special occasions only Patient Tobacco Use Status: Former Tobacco user Use of substances other than those prescribed or required for medical reasons: No Advance Directives: No Advance Directives Information Provided: Yes Physical Exam ED Vital Signs: Vital Signs - 24 hr 02/19/22 13:06 Temperature 97.1 F Pulse Rate 85 Respiratory Rate 16 Blood Pressure 165/100 H Pulse Oximetry 97 Oxygen Delivery Method Room Air BMI result Body Mass Index 33.6 Const General: cooperative, no acute distress, alert and awake Nutritional Appearance: well nourished Orientation/consciousness: patient oriented x3 Limitations: no limitations HENMT Head: Yes normal to inspection and Yes atraumatic Ears: hearing grossly normal bilaterally and external ears normal General nose exam: Normal external nose present, no nasal discharge noted and no epistaxis Face and sinus: Yes normal facial exam, No abrasion and No laceration Mouth: Normal oral and palatal mucosa present, no drooling and no muffled voice Eyes General: appearance normal, both eyes and all related structures Periorbital: periorbital findings normal Eyelids: Yes eyelids normal Conjunctivae: conjunctivae normal Pupils: Equal, round and reactive pupils present EOM: EOMs intact bilaterally Neck Neck: Yes normal visual inspection, Yes full ROM and Yes no lymphadenopathy Chest Chest palpation & inspection: normal inspection of the chest Resp Effort & Inspection: normal respiratory effort and able to speak in complete sentences Auscultation: clear to auscultation bilaterally Cardio Rate: regular rate Rhythm: regular rhythm GI Inspection: Yes normal to inspection Neuro General: patient oriented x3 and moves all extremities Cranial nerves: Yes Equal, round and reactive pupils present Cognition (Neuro): normal cognition Motor exam (neuro): 5/5 motor strength present throughout Sensory Exam: Normal double simultaneous stimulation for sensation Coordination: [id number] test normal Extrem General: Yes normal to inspection, Yes full ROM and Yes capillary refill normal Psych Appearance: grossly normal Mental Status: mental status grossly normal Affect: normal affect Attitude: cooperative Thought process: Normal thought process present Thought content: Normal thought content present Insight: Good insight present (Psych) Medical Decision Making MDM Narrative Medical decision making narrative: Patient is a 71 year old male presenting to the emergency department today requesting a medication refill. Patient's physical exam was unremarkable. I explained my physical exam findings to the patient. I answered all questions a sked by the patient. I stressed the importance of the patient taking his medication as prescribed. I stressed the importance of the patient following up with his primary care provider. I stressed the importance of the patient returning to the emergency department immediately if he were to develop any dizziness, shortness of breath, difficulty breathing, chest pain, blurry vision, loss of vision, nausea, vomiting, abdominal pain, fever, chills, back pain, or any other complaints. Patient verbalized agreement and understanding with this treatment plan and discharge. Differential Diagnosis Differential Diagnosis: medication refill Medical Records Medical records reviewed: Yes I reviewed the patient's medical records. Discharge Plan Discharge Clinical Impression: Medication refill Patient Disposition: Home, Self-Care Instructions: Medicine Refill (ED) Additional Instructions: Follow up with your primary care provider. Return to the emergency department immediately if your symptoms worsen or if you develop any dizziness, shortness of breath, difficulty breathing, chest pain, blurry vision, loss of vision, nausea, vomiting, abdominal pain, fever, chills, back pain, or any other compla ints. Prescriptions: New furosemide [Lasix] 40 mg tablet 40 mg PO DAILY 60 Days Qty: 60 0RF potassium chloride 10 mEq capsule, extended release 10 meq PO DAILY 60 Days Qty: 60 0RF Continued furosemide [Lasix] 40 mg tablet 40 mg PO DAILY 30 Days Qty: 30 0RF potassium chloride 10 mEq tablet,ER particles/crystals 10 meq PO DAILY Qty: 30 0RF No Action prednisone 20 mg tablet 40 mg PO DAILY Qty: 10 0RF doxycycline monohydrate 100 mg capsule 100 mg PO BID Qty: 14 0RF omeprazole 20 mg capsule,delayed release(DR/EC) 20 mg PO DAILY Qty: 14 0RF lidocaine [Lidoderm] 5 % adhesive patch,medicated 1 patch topical DAILY Qty: 15 0RF Rx Instructions: leave on most painful area for up to 12 hrs Referrals: Karuna Rogers PA [Primary Care Provider] - Interventions: ED Discharge Assessment Last Done: 02/19/22 14:58 Discharge Date/Time: 02/19/22 14:59 Print Language: Russian
== END 2022-02-19 14:59 | disposition home or self-care (01) ==
PROVIDERS: Emergency Provider Emergency Medicine; PCP Physician Assistant
DX: Z76.0 Encounter for issue of repeat prescription (principal); Z79.899 Other long term (current) drug therapy; Z87.891 Personal history of nicotine dependence
CPT/HCPCS: 99283

== ENCOUNTER → 2022-03-07 11:15 | Outpatient (BNVA) | payer MEDICARE, OTHER, SELFPAY | PROVIDERS: PCP Physician Assistant; Visit Provider Urology | DX: R10.30 Lower abdominal pain, unspecified (principal) | CPT/HCPCS: 99202 ==

== ENCOUNTER 2022-08-14 11:10 | Emergency (ER) | payer MEDICARE, OTHER, SELFPAY ==
--- NOTE | ~2022-08-14 | XR_ITS ---
EXAMINATION: XR TOES, LEFT CLINICAL INFORMATION: Left great toe swelling, pain and redness. COMPARISON: Left foot radiographs dated 08/09/2020. TECHNIQUE: 3 views of the left toes were obtained. FINDINGS: There is a hallux valgus deformity with mild first metatarsophalangeal degenerative changes and minimal malalignment. Mild hypertrophy of the medial margin of the first metatarsal head is also seen. Mild to moderate adjacent soft tissue thickening medially is also seen. The remainder the digits are intact. There is no acute fracture or dislocation. XR/XR toe LT min 2V IMPRESSION: Hallux [place] deformity is again seen with increased first metatarsophalangeal degenerative joint changes and mild malalignment. Soft tissue thickening medially appears similar if not minimally increased from the 2020 study.
--- NOTE | 2022-08-14 11:13 | ED.LOWEXIN ---
HPI - Extremity Injury (Lower) General Chief Complaint: Extremity Injury, Lower <CHERI Farmer Last Filed: 08/14/22 11:16> Stated Complaint: L foot pain <CHERI Farmer Last Filed: 08/14/22 11:16> Time Seen by Provider: 08/14/22 12:01 <CHERI Farmer Last Filed: 08/14/22 11:16> Source: patient <CHERI Ngo Last Filed: 08/14/22 12:33> Mode of arrival: ambulatory <CHERI Ngo Last Filed: 08/14/22 12:33> Limitations: no limitations <CHERI Ngo Last Filed: 08/14/22 12:33> History of Present Illness HPI Narrative: 72-year-old male with a past medical history of gout who is [place]auan-speaking presenting to the ER with complaints of a gout flare up to his left great toe over the past few days worse today. Reports that he was seen at the urgent care approximately 1 week ago and was given steroids which provided symptomatic relief although he was only given 3 days of steroids and his symptoms returned shortly after he finished steroids. He reports that this feels like his normal gout flare-up. In triage he gave them magnesium oxide bottle that he thought this is the prescription they gave him at the urgent care although he reports he brought the wrong bottle with him that they actually gave him prednisone. He denies any fevers, chills, dizziness, headaches, neck pain /stiffness, trouble swallowing or breathing, chest pain or shortness of breath, lower extremity edema or calf tenderness or any other symptoms complaints or concerns at this time. <CHERI Ngo Last Filed: 08/14/22 12:33> MD complaint: foot injury ( Left great toe) <CHERI Ngo Last Filed: 08/14/22 12:33> Onset (ago): week(s) (1-2 weeks worse today) <CHERI Ngo Last Filed: 08/14/22 12:33> Injury: Left: toes ( great toe) <CHERI Ngo Last Filed: 08/14/22 12:33> Place: home <CHERI Ngo Last Filed: 08/14/22 12:33> Severity: moderate <CHERI Ngo - Last Filed: 08/14/22 12:33> Relieving factors: nothing <CHERI Ngo - Last Filed: 08/14/22 12:33> Exacerbating factors: weight bearing, movement and palpation <CHERI Ngo - Last Filed: 08/14/22 12:33> Context: other ( history of gout) <CHERI Ngo - Last Filed: 08/14/22 12:33> Associated symptoms: swelling and able to partially bear weight <CHERI Ngo - Last Filed: 08/14/22 12:33> Other symptoms: none <CHERI Ngo - Last Filed: 08/14/22 12:33> Treatments prior to arrival: other ( see above) <CHERI Nog - Last Filed: 08/14/22 12:33> Related Data Home Medications: Home Medications Medication Instructions Recorded Confirmed amlodipine 10 mg tablet 10 mg PO DAILY 03/07/22 magnesium oxide 250 mg PO DAILY 03/07/22 Previous Rx's Medication Instructions Recorded doxycycline monohydrate 100 mg 100 mg PO BID #14 caps 08/09/20 capsule prednisone 20 mg tablet 40 mg PO DAILY #10 tabs 08/09/20 omeprazole 20 mg capsule,delayed 20 mg PO DAILY #14 caps 05/04/21 release lidocaine 5 % topical patch 1 patch topical DAILY #15 ea 08/15/21 (Lidoderm) furosemide 40 mg tablet (Lasix) 40 mg PO DAILY 30 days #30 tabs 01/03/22 potassium chloride 10 mEq 10 meq PO DAILY #30 tabs 01/03/22 tablet,extended release(part/cryst) furosemide 40 mg tablet (Lasix) 40 mg PO DAILY 60 days #60 tabs 02/19/22 potassium chloride 10 mEq 10 meq PO DAILY 60 days #60 caps 02/19/22 capsule,extended release indomethacin 50 mg capsule 50 mg PO Q8H gout pain #20 caps 08/14/22 oxycodone 5 mg tablet 5 mg PO Q6H PRN pain #14 tabs 08/14/22 prednisone 20 mg tablet 40 mg PO DAILY inflammation 5 days 08/14/22 #10 tabs <CHERI Farmer - Last Filed: 08/14/22 11:16> Allergies/Adverse Reactions: Allergies Allergy/AdvReac Type Severity Reaction Status Date / Time No Known Allergies Allergy Verified 03/07/22 10:09 [No Known Allergies*] <CHERI Farmer - Last Filed: 08/14/22 11:16> Review of Systems Review of Systems: Constitutional : No Weight loss, No Fever, No Chills, No Night Sweats, No Fatigue, No Malaise ENT/Mouth : No Hearing loss, No Ear Pain, No Nasal Congestion, No Sinus Pain, No Hoarseness, No sore throat, No Rhinorrhea, No Swallowing Difficulty Eyes: No Eye Pain, No Swelling, No Redness, No Foreign Body, No Discharge, No Vision Changes Cardiovascular : No Chest Pain, No SOB, No Dyspnea on Exertion, No Orthopnea, No Edema, No Palpitations Respiratory : No Cough, No Sputum, No Wheezing, No Smoke Exposure, No Dyspnea Gastrointestinal : No Nausea, No Vomiting, No Diarrhea, No Constipation, No abdominal Pain, No Hematochezia, No Melena Genitourinary : no irregular bleeding, No Dysuria, No Urinary Frequency, No Hematuria, No Urinary Incontinence, No Urgency, No Flank Pain, No Urinary Flow Changes, No Hesitancy Musculoskeletal : + left great toe joint pain, No Myalgias, No Joint Swelling Skin : No Skin Lesions, No rash Neuro : No Weakness, No Numbness, No Paresthesias, No Loss of Consciousness, No Dizziness, No Headache Psych : No Anxiety/Panic, No Depression, No SI/HI/AH/VH, No Social Issues, Heme/Lymph: No Bruising, No Bleeding,No Lymphadenopathy Endocrine : No Polyuria, No Polydipsia, No Temperature Intolerance <CHERI Ngo - Last Filed: 08/14/22 12:33> Yes all other systems are reviewed and are negative <CHERI Ngo - Last Filed: 08/14/22 12:33> [facility] Past Medical History Attestation statement: The following information was validated with the patient. <CHERI Ngo - Last Filed: 08/14/22 12:33> Source: old records reviewed and nursing notes reviewed <CHERI Ngo Last Filed: 08/14/22 12:33> Medical History: Medical History Hypertension <CHERI Farmer - Last Filed: 08/14/22 11:16> Social History Social History: Social History Alcohol intake: current Alcohol intake frequency: holidays/special occasions only Patient Tobacco Use Status: Former Tobacco user Advance Directives: Yes Advance Directives Information Provided: No Advance Directives on File: No <CHERI Farmer - Last Filed: 08/14/22 11:16> Physical Exam Vital Signs: Vital Signs: Last Vital Signs Temp 97.9 F 08/14/22 11:14 Pulse 76 08/14/22 11:14 Resp 20 08/14/22 11:14 BP 149/91 H 08/14/22 11:14 Pulse Ox 94 08/14/22 11:14 O2 Del Method 08/14/22 11:14 BMI result Body Mass Index 32.0 <CHERI Farmer - Last Filed: 08/14/22 11:16> Vital Signs: Last Vital Signs Temp 97.9 F 08/14/22 11:14 Pulse 76 08/14/22 11:14 Resp 20 08/14/22 11:14 BP 149/91 H 08/14/22 11:14 Pulse Ox 94 08/14/22 11:14 O2 Del Method 08/14/22 11:14 BMI result Body Mass Index 32.0 Vital signs reviewed. Blood pressure normal. Pulse normal. Respiration normal. Oxygen normal. Temperature normal. <CHERI Ngo - Last Filed: 08/14/22 12:33> Appearance: Alert. Oriented X3. No acute distress. Head: Normal external exam. Normocephalic. Atraumatic. Eyes: PERRLA. EOMI. Conjunctiva and sclera normal. Eyelids normal. ENT: EAC normal. TM's Normal. Pharynx normal. Uvula midline. Moist mucous membranes. No lesions/ulcerations or masses noted on the tongue. Normal voice. No trismus noted. No drooling noted. No muffled voice noted. Neck: Normal inspection. Neck supple. FROM. No adenopathy. Thyroid Normal. No meningeal signs. CVS: Normal heart rate and rhythm. Heart sound normal. Pulses normal throughout. No murmurs/rales/gallops. Respiratory: No respiratory distress. Painless inspiration. Breath sounds normal. No wheezes/rales/rhonchi noted. Chest nontender. No accessory muscle usage noted or decreased air movement noted. Abdomen: Soft and nontender. Back: Full range of motion noted. Nontender. Skin: Skin warm and dry. Normal skin color. Normal skin turgor. No rashes/lesions/lacerations noted. Extremities: to left great toe at the MTP patient has moderate tenderness palpation with light touch mild erythema soft tissue swelling consistent with gout. No streaking noted. Not consistent with septic joint or cellulitis. Otherwise all other extremities exhibit normal range of motion nontender. There is no lower extremity edema or calf tenderness noted. Neuro: Oriented X 3. No motor deficit. No sensory deficit. Reflexes normal. Normal steady gait. No focal neuro deficits noted. CN's II-XII intact bilaterally? Vascular: + radial pulses. Normal cap refill. No cyanosis noted to upper extremity nails <CHERI Ngo - Last Filed: 08/14/22 12:33> Course Course Course Narrative: RME - 72 yo male with history of HTN presenting with left 1st great toe pain, swelling and redness for the last 3 days. No trauma. Tender, erythematous and warm 1st MTP. No hx gout. XR ordered. <CHERI Farmer - Last Filed: 08/14/22 11:16> RME - 72 yo male with history of HTN presenting with left 1st great toe pain, swelling and redness for the last 3 days. No trauma. Tender, erythematous and warm 1st MTP. hx gout. XR ordered. <CHERI Ngo - Last Filed: 08/14/22 12:33> Reevaluation(s) Reevaluation #1: Patient with usual gout flare up for the past few weeks worse today. Not c/w DVT. Not c/w Cellulitis/necrotizing fasciitis/ myositis/ arterial occlusion/ osteomyelitis/ compartment syndrome/ septic joint ? will DC home with symptomatic treatment instructions return if any new or worsening symptoms to follow up with primary care provider. Patient understands agrees with this plan. <CHERI Ngo - Last Filed: 08/14/22 12:33> Time: 12:32 <CHERI Ngo - Last Filed: 08/14/22 12:33> Medical Decision Making Independent Interpretation I performed an independent interpretation of an: Plain X-Ray <CHERI Ngo - Last Filed: 08/14/22 12:33> Interpretation: FINDINGS: There is a hallux valgus deformity with mild first metatarsophalangeal degenerative changes and minimal malalignment. Mild hypertrophy of the medial margin of the first metatarsal head is also seen. Mild to moderate adjacent soft tissue thickening medially is also seen. The remainder the digits are intact. There is no acute fracture or dislocation. XR/XR toe LT min 2V IMPRESSION: Hallux [place] deformity is again seen with increased first metatarsophalangeal degenerative joint changes and mild malalignment. Soft tissue thickening medially appears similar if not minimally increased from the 2020 study. <CHERI Ngo - Last Filed: 08/14/22 12:33> Radiology Impression Discussion of test interpretation with radiology: I have reviewed the radiologist's reading. <CHERI Ngo - Last Filed: 08/14/22 12:33> Discharge Plan Discharge Clinical Impression: Gout <CHERI Farmer - Last Filed: 08/14/22 11:16> Patient Disposition: Home, Self-Care <CHERI Farmer - Last Filed: 08/14/22 11:16> Instructions: Low Purine Diet (ED), Gout (ED) <CHERI Farmer - Last Filed: 08/14/22 11:16> Prescriptions: New indomethacin 50 mg capsule 50 mg PO Q8H Qty: 20 0RF Rx Instructions: administer with food or milk prednisone 20 mg tablet 40 mg PO DAILY 5 Days Qty: 10 0RF oxycodone 5 mg tablet 5 mg PO Q6H PRN (Reason: pain) Qty: 14 0RF Rx Instructions: Partial Fill upon patient request. No Action prednisone 20 mg tablet 40 mg PO DAILY Qty: 10 0RF doxycycline monohydrate 100 mg capsule 100 mg PO BID Qty: 14 0RF furosemide [Lasix] 40 mg tablet 40 mg PO DAILY 60 Days Qty: 60 0RF potassium chloride 10 mEq capsule, extended release 10 meq PO DAILY 60 Days Qty: 60 0RF omeprazole 20 mg capsule,delayed release(DR/EC) 20 mg PO DAILY Qty: 14 0RF lidocaine [Lidoderm] 5 % adhesive patch,medicated 1 patch topical DAILY Qty: 15 0RF Rx Instructions: leave on most painful area for up to 12 hrs furosemide [Lasix] 40 mg tablet 40 mg PO DAILY 30 Days Qty: 30 0RF potassium chloride 10 mEq tablet,ER particles/crystals 10 meq PO DAILY Qty: 30 0RF magnesium oxide 250 mg magnesium tablet 250 mg PO DAILY amlodipine 10 mg tablet 10 mg PO DAILY <CHERI Farmer - Last Filed: 08/14/22 11:16> Referrals: Karuna Rogers PA [Primary Care Provider] - 2 days <CHERI Farmer - Last Filed: 08/14/22 11:16> Print Language: Palauan <CHERI Farmer - Last Filed: 08/14/22 11:16>
[2022-08-14 11:14] VITALS: BP 149/91; PULSE 76; RESP 20; TEMP 36.6; O2SAT 94; BMI 32.0
== END 2022-08-14 13:06 | disposition home or self-care (01) ==
PROVIDERS: Emergency Provider Emergency Medicine; PCP Physician Assistant
DX: M10.072 Idiopathic gout, left ankle and foot (principal); Z79.899 Other long term (current) drug therapy
CPT/HCPCS: 73660; 99282; 99283

== ENCOUNTER 2022-10-17 10:58 | Emergency (ER) | payer OTHER, MEDICARE, SELFPAY ==
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
[2022-10-17 11:14] VITALS: BP 158/95; PULSE 100; RESP 19; TEMP 36.6; O2SAT 100; BMI 32.1
== END 2022-10-17 11:36 | disposition home or self-care (01) ==
PROVIDERS: Emergency Provider Emergency Medicine; PCP Physician Assistant
DX: R51.9 Headache, unspecified (principal); M54.2 Cervicalgia; Z79.899 Other long term (current) drug therapy
CPT/HCPCS: 99282; 99283

== ENCOUNTER 2023-01-03 10:25 | Emergency (ER) | payer MEDICARE, OTHER, SELFPAY ==
--- NOTE | ~2023-01-03 | CT_ITS ---
EXAMINATION: CT HEAD WITHOUT CONTRAST CLINICAL INFORMATION: Pain COMPARISON: None. TECHNIQUE: Contiguous axial imaging was performed from the skull base to vertex without intravenous contrast. This CT examination was performed using dose optimization techniques as appropriate, variously including the following: * Automated exposure control * Adjustment of mA and/or kV according to patient size (this includes techniques or standardized protocols for targeted exams where dose is matched to indication/reason for exam; i.e. extremities or head) Use of iterative reconstruction technique DLP: 630 mGy-cm. FINDINGS: There is no evidence of acute intracranial hemorrhage or territorial infarction. No abnormal mass effect or midline shift is seen. Robin to white matter differentiation is well preserved. No extra-axial fluid collections are identified. No hydrocephalus. Proportional prominence of the ventricles and sulcal spaces is consistent with mild volume loss. Patchy periventricular and deep white matter hypoattenuation is consistent with moderate small vessel ischemic changes. The osseous structures and soft tissues are normal. The mastoid air cells and visualized portions of the paranasal sinuses are well aerated. The frontal sinuses are not pneumatized. CT/CT head/brain wo IV con IMPRESSION: No acute intracranial pathology. Chronic volume loss with small vessel ischemic change.
[2023-01-03 10:30] VITALS: BP 137/94; PULSE 106; RESP 18; TEMP 35.9; O2SAT 95; BMI 32.9
[2023-01-03 10:52] LABS: IDNOW Serial# 08D9AD1C
[2023-01-03 10:53] LABS: Strep A Nucleic Acid Negative (Negative)
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
[2023-01-03 15:10] VITALS: BP 157/99; PULSE 105; TEMP 36.7; O2SAT 95
== END 2023-01-03 15:33 | disposition home or self-care (01) ==
PROVIDERS: Emergency Provider Emergency Medicine; PCP Physician Assistant
DX: R51.9 Headache, unspecified (principal); K13.79 Other lesions of oral mucosa; Z79.899 Other long term (current) drug therapy
CPT/HCPCS: 70450; 87651; 99283; 99284

== ENCOUNTER 2023-01-09 13:33 | Emergency (ER) | payer MEDICARE, OTHER, SELFPAY ==
--- NOTE | ~2023-01-09 | XR_ITS ---
EXAMINATION: 1. Right foot. 2. Right ankle. CLINICAL INFORMATION: Foot pain. Ankle pain. COMPARISON: None. TECHNIQUE: 1. Right foot. 3 views 2. Right ankle. 3 views. FINDINGS: 1. Right foot. Status post bunionectomy. Orthopedic screw within the distal first metatarsal. No acute abnormality. No fracture or dislocation. No focal bone lesion or abnormal periosteal reaction. Joint spaces are maintained. 2. Right ankle. There is no fracture. There is no dislocation. Ankle mortise is congruent. XR/XR foot RT min 3V IMPRESSION: 1. Right foot. Status post bunionectomy. No acute abnormality. 2. Right ankle. Normal right ankle. There is no acute osseous abnormality.
--- NOTE | ~2023-01-09 | XR_ITS ---
EXAMINATION: 1. Right foot. 2. Right ankle. CLINICAL INFORMATION: Foot pain. Ankle pain. COMPARISON: None. TECHNIQUE: 1. Right foot. 3 views 2. Right ankle. 3 views. FINDINGS: 1. Right foot. Status post bunionectomy. Orthopedic screw within the distal first metatarsal. No acute abnormality. No fracture or dislocation. No focal bone lesion or abnormal periosteal reaction. Joint spaces are maintained. 2. Right ankle. There is no fracture. There is no dislocation. Ankle mortise is congruent. XR/XR ankle RT min 3V IMPRESSION: 1. Right foot. Status post bunionectomy. No acute abnormality. 2. Right ankle. Normal right ankle. There is no acute osseous abnormality.
--- NOTE | ~2023-01-09 | US_ITS ---
EXAMINATION: US VENOUS ULTRASOUND WITH DOPPLER LOWER EXTREMITY, RIGHT CLINICAL INFORMATION: Right leg swelling COMPARISON: None available. TECHNIQUE: Ultrasound of the deep veins is performed from the hip to the calf with compression sonography and color and pulse Doppler assessment. Spectral analysis with color-flow imaging is performed. FINDINGS: There is normal venous compression and respiratory variation and augmented flow. The visualized common femoral vein, superficial femoral vein, profunda femoral vein, popliteal vein, and the trifurcation region shows no evidence of deep venous thrombosis. There is no significant popliteal fossa cyst. Morphologically normal-appearing lymph nodes in the groin measuring 3.5 x 0.8 x 2.4 cm. If the patient's symptoms persist, followup ultrasound in 5 days 7 days might be of value to exclude proximal propagation from a non-visualized calf vein. US/US venous duplex LE RT IMPRESSION: No DVT demonstrated in the right lower extremity.
[2023-01-09 13:42] VITALS: BP 140/70; PULSE 107; O2SAT 96
[2023-01-09 13:48] VITALS: BP 132/76; PULSE 99; RESP 20; TEMP 36.4; O2SAT 95; BMI 31.7
--- NOTE | 2023-01-09 14:20 | PC.NURSE ---
20g iv placed in R AC, labs, and cultures obtained. pt awaiting imaging. call mejia within reach
[2023-01-09 14:30] LABS: Basophils Percent Auto 0.4 % (0-2); Hematocrit 43.1 % (42.0-52.0); Hemoglobin 14.6 g/dl (14.0-18.0); Imm Gran Abs Auto 0.04 X10*3/uL (0.00-0.03); Imm Gran Pct Auto 0.6 % (0.0-0.4); Lymphocytes Absolute Auto 0.7 X10*3/uL (1.2-4.9); Lymphocytes Percent Auto 10.8 % (20-40); MANUAL DIFF FLAG SCAN; Mean Corpuscular HGB Conc 33.9 g/dl (31.0-36.0); Mean Corpuscular Hemoglobin 30.8 pg (27.0-33.0); Mean Corpuscular Volume 90.9 fL (80.0-98.0); Mean Platelet Volume 13.1 fL (9.4-12.4); Monocytes Absolute Auto 1.4 X10*3/uL (0.1-1.2); Monocytes Percent Auto 20.4 % (2-11); Neutrophils Absolute Auto 4.6 x10*3/uL (2.0-8.3); Neutrophils Percent Auto 67.8 % (45-73); Platelet Count 126 X10*3/uL (160-400); Red Blood Count 4.74 X10*6/uL (4.60-5.80); Red Cell Distribution Width 14.6 % (11.0-16.0); SCAN SMEAR FLAG 1; White Blood Count 6.9 X10*3/uL (4.8-10.8)
[2023-01-09 14:38] LABS: Lactic Acid 1.4 mmol/L (0.5-2.0)
[2023-01-09] MEDS: Acetaminophen 325 MG TABLET 975 MG PO (14:48)
[2023-01-09 14:53] LABS: SLIDE REVIEW VERIFIED
[2023-01-09 15:07] LABS: Erythrocyte Sedimentation Rate 49 MM/HR (0-15)
[2023-01-09 15:16] LABS: Alanine Aminotransferase 19 U/L (0-40); Alkaline Phosphatase 61 U/L (39-117); Anion Gap 16 (12-20); Aspartate Amino Transferase 28 U/L (5-37); Bilirubin Direct 0.3 mg/dL (0.0-0.5); Bilirubin Total 0.8 mg/dL (0.0-1.0); Blood Urea Nitrogen 10 mg/dL (9-16); C Reactive Protein 10.67 mg/dL (< or = 0.50); Calcium 10.1 mg/dL (8.4-10.2); Carbon Dioxide 28 mmol/L (22-29); Chloride 100 mmol/L (96-108); Creatinine Clr Calc Pharmacy 67.9; Estimated Glomerular Filt Rate > 60; Glucose Random 138 mg/dL (60-115); Potassium 3.8 mmol/L (3.3-5.1); Sodium 140 mmol/L (135-145); Total Protein 7.7 g/dL (6.5-8.0)
[2023-01-09 16:00] VITALS: BP 109/54; BP 133/71; PULSE 69; PULSE 90; RESP 14; RESP 16; TEMP 36.1; O2SAT 96; O2SAT 97
[2023-01-09 16:15] LABS: Uric Acid 9.8 mg/dL (3.4-7.0)
--- NOTE | 2023-01-09 16:39 | PC.NURSE ---
pt reassessed, states pain decreased to 3/10, vss, patient resting comfortably in bed, will continue to monitor.
--- NOTE | 2023-01-09 16:56 | ED.GENADULT ---
HPI - General Adult General Chief complaint: Extremity Injury, Lower Stated complaint: R LEG PAIN Time Seen by Provider: 01/09/23 13:42 Source: patient and RN notes reviewed Mode of arrival: ambulatory Limitations: no limitations History of Present Illness HPI narrative: This is a 72-year-old Syriac-speaking male, with a past medical history of gout, presenting to the emergency department with complaints of right lower leg pain and swelling x 3 days. Patient reports that 3 days ago he had right knee pain. He states that over the last several days he has noticed increasing pain and swelling in his right ankle and right foot. He denies any recent trauma or injury to his right ankle or foot. He reports that the pain increases significantly with ambulation and with palpation. He states that he typically gets his gout flare ups in his foot. Denies any fevers, chills, nausea, vomiting, or diarrhea. He denies any calf pain. Denies taking any medications at home to treat his current symptoms. No other complaints or concerns at this time. MD complaint: Right foot and ankle pain Onset (ago): day(s) Location: lower extremity Radiation: non-radiation Quality: aching Pain Consistency: constant Relieving factors: none Exacerbating factors: none Associated symptoms: denies other symptoms Treatments prior to arrival: none Related Data Home Medications Medication Instructions Recorded Confirmed amlodipine 10 mg tablet 10 mg PO DAILY 03/07/22 magnesium oxide 250 mg PO DAILY 03/07/22 Previous Rx's Medication Instructions Recorded doxycycline monohydrate 100 mg 100 mg PO BID #14 caps 08/09/20 capsule prednisone 20 mg tablet 40 mg PO DAILY #10 tabs 08/09/20 omeprazole 20 mg capsule,delayed 20 mg PO DAILY #14 caps 05/04/21 release lidocaine 5 % topical patch 1 patch topical DAILY #15 ea 08/15/21 (Lidoderm) furosemide 40 mg tablet (Lasix) 40 mg PO DAILY 30 days #30 tabs 01/03/22 potassium chloride 10 mEq 10 meq PO DAILY #30 tabs 01/03/22 tablet,extended release(part/cryst) furosemide 40 mg tablet (Lasix) 40 mg PO DAILY 60 days #60 tabs 02/19/22 potassium chloride 10 mEq 10 meq PO DAILY 60 days #60 caps 02/19/22 capsule,extended release indomethacin 50 mg capsule 50 mg PO Q8H gout pain #20 caps 08/14/22 oxycodone 5 mg tablet 5 mg PO Q6H PRN pain #14 tabs 08/14/22 prednisone 20 mg tablet 40 mg PO DAILY inflammation 5 days 08/14/22 #10 tabs cyclobenzaprine 10 mg tablet 10 mg PO TID PRN muscle spasm #10 10/17/22 tabs ibuprofen 600 mg tablet 600 mg PO Q8H PRN pain #10 tabs 10/17/22 lidocaine 5 % topical patch 1 patch topical DAILY #15 ea 10/17/22 naproxen 500 mg tablet 500 mg PO BID 7 days #14 tabs 01/09/23 prednisone 20 mg tablet 40 mg PO DAILY 5 days #10 tabs 01/09/23 Allergies Allergy/AdvReac Type Severity Reaction Status Date / Time No Known Allergies Allergy Verified 01/09/23 13:53 [No Known Allergies*] Review of Systems Review of Systems: Constitutional: No Weight loss, No Fever, No Chills ENT/Mouth: No Ear Pain, No Nasal Congestion, No Sinus Pain, No Hoarseness, No sore throat, No Rhinorrhea, No Swallowing Difficulty Cardiovascular: No Chest Pain, No SOB Respiratory: No Cough, No Sputum, No Wheezing Gastrointestinal: No Nausea, No Vomiting, No Diarrhea, No Constipation, No Abdominal pain Genitourinary: No Dysuria, No Urinary Frequency, No Hematuria, No Urinary Incontinence/retention, No Urgency, No Flank Pain Musculoskeletal: No joint pain, No Myalgias, No Joint Swelling Skin: No Skin Lesions, No rash Neuro: No Weakness, No Numbness, No Paresthesias Yes all other systems are reviewed and are negative Constitutional: Constitutional: Reports as per [facility] Past Medical History Medical History Hypertension Social History Social History Alcohol intake: current Alcohol intake frequency: a few times a month Patient Tobacco Use Status: Former Tobacco user Smoked in Last 30 Days: No Use of substances other than those prescribed or required for medical reasons: No Advance Directives: No Advance Directives Information Provided: Yes Physical Exam ED Vital Signs: Vital Signs - 24 hr 01/09/23 13:48 01/09/23 16:00 01/09/23 16:00 Temperature 97.6 F 96.9 F 97.0 F Pulse Rate 99 69 90 Respiratory Rate 20 16 14 Blood Pressure 132/76 109/54 L 133/71 Pulse Oximetry 95 97 96 Oxygen Delivery Method Room Air Room Air Room Air BMI result Body Mass Index 31.7 Const General: cooperative, comfortable and no acute distress Orientation/consciousness: patient oriented x3 Limitations: no limitations [facility] Head: Yes normal to inspection, Yes normocephalic and Yes atraumatic Ears: hearing grossly normal bilaterally General nose exam: Normal external nose present Face and sinus: Yes normal facial exam Mouth: Normal oral and palatal mucosa present, oropharynx normal and moist mucous membranes Throat: Yes posterior oropharynx normal Eyes General: appearance normal, both eyes and all related structures Eyelids: Yes eyelids normal Conjunctivae: conjunctivae normal Sclerae: sclerae normal Pupils: Equal, round and reactive pupils present EOM: EOMs intact bilaterally Neck Neck: Yes normal visual inspection, Yes full ROM and Yes no lymphadenopathy Lymphatic: no lymphadenopathy noted Chest Chest palpation & inspection: normal inspection of the chest Resp Effort & Inspection: normal respiratory effort and able to speak in complete sentences Auscultation: clear to auscultation bilaterally, no crackles, no rales, no rhonchi and no wheezes Cardio Rate: regular rate Rhythm: regular rhythm Heart sounds: S1 normal heart sound present and S2 normal heart sound present GI Inspection: Yes normal to inspection Skin General skin exam: no rashes or lesions noted Trauma: no lacerations or abrasions Wounds: no wounds Neuro General: patient oriented x3 and moves all extremities Cranial nerves: Yes Equal, round and reactive pupils present Extrem Other: Right knee is nontender, no bony abnormalities, patient has tenderness to palpation along the entire right ankle and right foot with edema, no erythema. DP pulses 2+. Patient has exquisite tenderness overlying the plantar aspect of his right foot diffusely. No open wounds. Patient able to plantar and dorsiflex the ankle with pain. Able to move all toes without difficulty. General: Yes normal to inspection Right upper extremity: normal to inspection Left upper extremity: normal to inspection Right lower extremity: normal to inspection Left lower extremity: normal to inspection Medications Administered Discontinued Medications Generic Name Dose Route Start Last Admin Trade Name Freq PRN Reason Stop Dose Admin Acetaminophen 975 mg 01/09/23 13:57 01/09/23 14:48 Acetaminophen 325 Mg Tablet PO 01/09/23 13:58 975 mg ONCE ONE Administration Naproxen 500 mg 01/09/23 17:18 01/09/23 17:23 Naproxen 500 Mg Tablet PO 01/09/23 17:19 500 mg ONCE ONE Administration Prednisone 40 mg 01/09/23 17:18 01/09/23 17:23 Prednisone 20 Mg Tablet PO 01/09/23 17:19 40 mg ONCE ONE Administration Medical Decision Making Medical Decision Making [facility] Narrative: 72-year-old male presenting to the emergency department for evaluation of right foot and ankle pain and swelling. On arrival, vital signs within normal limits. Patient with edema and exquisite pain throughout the entire foot and ankle, no erythema or warmth patient able to Dorsi and plantar flex. DP pulses 2+. Basic blood work obtained no leukocytosis, lactic acid 1.4, uric acid 9.8, CRP 10.67 and ESR 49. X-rays of the right foot and ankle reveal no bony abnormalities, ultrasound of the right lower extremity without evidence of DVT. Patient clinically has a gouty flare up. Will treat patient with prednisone and naproxen. Educated the importance of taking these medications as this will reduce his pain and symptoms. Informed him of red flag return precautions. Patient understands and agrees with plan. Patient stable for discharge. Differential Diagnosis Differential Diagnoses: The differential diagnosis associated with the presentation includes Gout flare up, septic arthritis, cellulitis, DVT Lab Data [facility] Lab Attestation statement: I reviewed the patient's lab results. 01/09/23 14:15 01/09/23 14:52 Labs: Lab Results 01/09/23 01/09/23 01/09/23 Range/Units 14:15 14:15 14:15 WBC 6.9 (4.8-10.8) X10*3/uL RBC 4.74 (4.60-5.80) X10*6/uL Hgb 14.6 (14.0-18.0) g/dl Hct 43.1 (42.0-52.0) % MCV 90.9 (80.0-98.0) fL MCH 30.8 (27.0-33.0) pg MCHC 33.9 (31.0-36.0) g/dl RDW 14.6 (11.0-16.0) % Plt Count 126 L (160-400) X10*3/uL MPV 13.1 H (9.4-12.4) fL Immature Gran % (Auto) 0.6 H (0.0-0.4) % Neut % (Auto) 67.8 (45-73) % Lymph % (Auto) 10.8 L (20-40) % [place] % (Auto) 20.4 H (2-11) % Eos % (Auto) 0.0 (0-4) % Baso % (Auto) 0.4 (0-2) % Lymph # (Auto) 0.7 L (1.2-4.9) X10*3/uL [place] # (Auto) 1.4 H (0.1-1.2) X10*3/uL Eos # (Auto) 0.0 (0.0-0.4) X10*3/uL Baso # (Auto) 0.0 (0.0-0.2) X10*3/uL Abs Immat Gran (auto) 0.04 H (0.00-0.03) X10*3/uL Absolute Neuts (auto) 4.6 (2.0-8.3) x10*3/uL Absolute Nucleated RBC 0.000 (0.0-0.012) X10*3/uL Nucleated RBC % (auto) 0.0 (0.0-0.2) /100WBC Smear Tech's Comments VERIFIED ESR 49 H (0-15) MM/HR Sodium (135-145) mmol/L Potassium (3.3-5.1) mmol/L Chloride (96-108) mmol/L Carbon Dioxide (22-29) mmol/L Anion Gap (12-20) BUN (9-16) mg/dL Creatinine (0.5-1.4) mg/dL Estim Creat Clear Calc Estimated GFR Random Glucose (60-115) mg/dL Lactic Acid 1.4 (0.5-2.0) mmol/L Uric Acid (3.4-7.0) mg/dL Calcium (8.4-10.2) mg/dL Total Bilirubin (0.0-1.0) mg/dL Direct Bilirubin (0.0-0.5) mg/dL AST (5-37) U/L ALT (0-40) U/L Alkaline Phosphatase (39-117) U/L C-Reactive Protein (< or = 0.50) mg/dL Total Protein (6.5-8.0) g/dL Albumin (3.5-5.0) g/dL 01/09/23 Range/Units 14:52 WBC (4.8-10.8) X10*3/uL RBC (4.60-5.80) X10*6/uL Hgb (14.0-18.0) g/dl Hct (42.0-52.0) % MCV (80.0-98.0) fL MCH (27.0-33.0) pg MCHC (31.0-36.0) g/dl RDW (11.0-16.0) % Plt Count (160-400) X10*3/uL MPV (9.4-12.4) fL Immature Gran % (Auto) (0.0-0.4) % Neut % (Auto) (45-73) % Lymph % (Auto) (20-40) % [place] % (Auto) (2-11) % Eos % (Auto) (0-4) % Baso % (Auto) (0-2) % Lymph # (Auto) (1.2-4.9) X10*3/uL [place] # (Auto) (0.1-1.2) X10*3/uL Eos # (Auto) (0.0-0.4) X10*3/uL Baso # (Auto) (0.0-0.2) X10*3/uL Abs Immat Gran (auto) (0.00-0.03) X10*3/uL Absolute Neuts (auto) (2.0-8.3) x10*3/uL Absolute Nucleated RBC (0.0-0.012) X10*3/uL Nucleated RBC % (auto) (0.0-0.2) /100WBC Smear Tech's Comments ESR (0-15) MM/HR Sodium 140 (135-145) mmol/L Potassium 3.8 (3.3-5.1) mmol/L Chloride 100 (96-108) mmol/L Carbon Dioxide 28 (22-29) mmol/L Anion Gap 16 (12-20) BUN 10 (9-16) mg/dL Creatinine 0.86 (0.5-1.4) mg/dL Estim Creat Clear Calc 67.9 Estimated GFR > 60 Random Glucose 138 H (60-115) mg/dL Lactic Acid (0.5-2.0) mmol/L Uric Acid 9.8 H (3.4-7.0) mg/dL Calcium 10.1 D (8.4-10.2) mg/dL Total Bilirubin 0.8 (0.0-1.0) mg/dL Direct Bilirubin 0.3 (0.0-0.5) mg/dL AST 28 (5-37) U/L ALT 19 (0-40) U/L Alkaline Phosphatase 61 (39-117) U/L C-Reactive Protein 10.67 H (< or = 0.50) mg/dL Total Protein 7.7 (6.5-8.0) g/dL Albumin 4.0 (3.5-5.0) g/dL Radiology Impression Discussion of test interpretation with radiology: I have reviewed the radiologist's reading. Radiologist Impression: EXAMINATION:? US VENOUS ULTRASOUND WITH DOPPLER LOWER EXTREMITY, RIGHT CLINICAL INFORMATION:? Right leg swelling COMPARISON:? None available. TECHNIQUE: Ultrasound of the deep veins is performed from the hip to the calf with compression sonography and color and pulse Doppler assessment. Spectral analysis with color-flow imaging is performed. FINDINGS: There is normal venous compression and respiratory variation and augmented flow. The visualized common femoral vein, superficial femoral vein, profunda femoral vein, popliteal vein, and the trifurcation region shows no evidence of deep venous thrombosis. ? There is no significant popliteal fossa cyst. Morphologically normal-appearing lymph nodes in the groin measuring 3.5 x 0.8 x 2.4 cm. If the patient's symptoms persist, followup ultrasound in 5 days 7 days might be of value to exclude proximal propagation from a non-visualized calf vein. US/US venous duplex LE RT IMPRESSION: No DVT demonstrated in the right lower extremity. Dictated By: Salvador Coughlin MD Signed By: <Electronically signed by Salvador Coughlin MD in OV> 01/09/23 [id number] EXAMINATION: 1. Right foot. 2. Right ankle. CLINICAL INFORMATION: Foot pain. Ankle pain.? COMPARISON: None.? TECHNIQUE: 1. Right foot. 3 views 2. Right ankle. 3 views.? FINDINGS: 1. Right foot. Status post bunionectomy. Orthopedic screw within the distal first metatarsal. No acute abnormality. No fracture or dislocation. No focal bone lesion or abnormal periosteal reaction. Joint spaces are maintained. 2. Right ankle. There is no fracture. There is no dislocation. Ankle mortise is congruent.? XR/XR foot RT min 3V IMPRESSION: 1.? Right foot. Status post bunionectomy. No acute abnormality. 2.? Right ankle. Normal right ankle. There is no acute osseous abnormality. ? Dictated By: Salvador Coughlin MD EXAMINATION: 1. Right foot. 2. Right ankle. CLINICAL INFORMATION: Foot pain. Ankle pain.? COMPARISON: None.? TECHNIQUE: 1. Right foot. 3 views 2. Right ankle. 3 views.? FINDINGS: 1. Right foot. Status post bunionectomy. Orthopedic screw within the distal first metatarsal. No acute abnormality. No fracture or dislocation. No focal bone lesion or abnormal periosteal reaction. Joint spaces are maintained. 2. Right ankle. There is no fracture. There is no dislocation. Ankle mortise is congruent.? XR/XR ankle RT min 3V IMPRESSION: 1.? Right foot. Status post bunionectomy. No acute abnormality. 2.? Right ankle. Normal right ankle. There is no acute osseous abnormality. ? Dictated By: Salvador Coughlin MD External Record Review External record reviewed: Inpatient record, Office record, Outpatient record, Prior outpatient labs, Prior outpatient radiology, Primary care record and Outside ED record Discharge Plan Discharge Clinical Impression: Gout Patient Disposition: Home, Self-Care Instructions: Low Purine Diet (ED), Gout (ED) Additional Instructions: Your x-rays performed today showed no new fracture. Your ultrasound did not show a blood clot. Your lab work reveals evidence that you have a gout flare up. Please take prescribed medications as directed. Please follow-up with your primary care physician regarding this visit. If any new or worsening symptoms occur please return for re-evaluation. Maya radiograf?as realizadas hoy no mostraron ninguna fractura nueva. Baker ultrasonido no mostr? un co?gulo de timur. Baker trabajo de laboratorio revela evidencia de que tiene un ataque de gota. [place] los medicamentos recetados seg?n las indicaciones. Ariella un seguimiento con baker m?dico de atenci?n primaria con respecto a esta visita. Si se presentan s?ntomas nuevos o que empeoran, regrese para luis reevaluaci?n. Prescriptions: New prednisone 20 mg tablet 40 mg PO DAILY 5 Days Qty: 10 0RF naproxen 500 mg tablet 500 mg PO BID 7 Days Qty: 14 0RF No Action prednisone 20 mg tablet 40 mg PO DAILY Qty: 10 0RF doxycycline monohydrate 100 mg capsule 100 mg PO BID Qty: 14 0RF furosemide [Lasix] 40 mg tablet 40 mg PO DAILY 60 Days Qty: 60 0RF potassium chloride 10 mEq capsule, extended release 10 meq PO DAILY 60 Days Qty: 60 0RF omeprazole 20 mg capsule,delayed release(DR/EC) 20 mg PO DAILY Qty: 14 0RF lidocaine [Lidoderm] 5 % adhesive patch,medicated 1 patch topical DAILY Qty: 15 0RF Rx Instructions: leave on most painful area for up to 12 hrs furosemide [Lasix] 40 mg tablet 40 mg PO DAILY 30 Days Qty: 30 0RF potassium chloride 10 mEq tablet,ER particles/crystals 10 meq PO DAILY Qty: 30 0RF indomethacin 50 mg capsule 50 mg PO Q8H Qty: 20 0RF Rx Instructions: administer with food or milk prednisone 20 mg tablet 40 mg PO DAILY 5 Days Qty: 10 0RF oxycodone 5 mg tablet 5 mg PO Q6H PRN (Reason: pain) Qty: 14 0RF Rx Instructions: Partial Fill upon patient request. ibuprofen 600 mg tablet 600 mg PO Q8H PRN (Reason: pain) Qty: 10 0RF lidocaine 5 % adhesive patch,medicated 1 patch topical DAILY Qty: 15 0RF Rx Instructions: leave on most painful area for up to 12 hrs cyclobenzaprine 10 mg tablet 10 mg PO TID PRN (Reason: muscle spasm) Qty: 10 0RF magnesium oxide 250 mg magnesium tablet 250 mg PO DAILY amlodipine 10 mg tablet 10 mg PO DAILY Interventions: ED Discharge Assessment Last Done: 01/09/23 17:51 Discharge Date/Time: 01/09/23 17:51 Print Language: Syriac
[2023-01-09] MEDS: predniSONE 20 MG TABLET 40 MG PO (17:23)
[2023-01-09] MEDS: NaPROXEN 500 MG TABLET PO (17:23)
--- NOTE | 2023-01-09 17:23 | PC.NURSE ---
pt medicated for 8/10 rle pain.
--- NOTE | 2023-01-09 17:26 | PC.NURSE ---
nathan wrap applied per order
--- NOTE | 2023-01-09 17:47 | PC.NURSE ---
pt discharged with use of pocket maker, pt requested wheelchair and to be put out front outside to wait for their ride to get here.
== END 2023-01-09 17:51 | disposition home or self-care (01) ==
PROVIDERS: Physician Assistant Medical; Emergency Provider Emergency Medicine
DX: M10.9 Gout, unspecified (principal); M79.604 Pain in right leg; R60.0 Localized edema; I10 Essential (primary) hypertension; Z79.899 Other long term (current) drug therapy
CPT/HCPCS: 36415; 73610; 73630; 80048; 80076; 83605; 84550; 85025; 85652; 86140; 87040; 93971; 99284

== ENCOUNTER 2023-06-03 10:18 | Emergency (ER) | payer MEDICARE, SELFPAY ==
--- NOTE | ~2023-06-03 | CT_ITS ---
EXAMINATION: CT ABDOMEN AND PELVIS WITHOUT CONTRAST CLINICAL INFORMATION: Hematuria. COMPARISON: None available. TECHNIQUE: Multidetector volumetric imaging was performed from the superior aspect of the liver through the pubic symphysis. Sagittal and coronal reformatted images were obtained on the technologist's workstation. This CT examination was performed using dose optimization techniques as appropriate, variously including the following: *Automated exposure control *Adjustment of mA and/or kV according to patient size (this includes techniques or standardized protocols for targeted exams where dose is matched to indication/reason for exam; i.e. extremities or head) *Use of iterative reconstruction technique DLP: 440 mGy-cm FINDINGS: LUNG BASES: The visualized lung bases are unremarkable. LIVER, GALLBLADDER, AND BILIARY TREE: The noncontrast liver is enlarged. No biliary ductal dilatation is present. The gallbladder is unremarkable with no evidence of radiopaque gallstones, gallbladder wall thickening, or obvious pericholecystic inflammatory changes. PANCREAS: No ductal dilatation. There is fullness of the tail the pancreas. There is fluid in the left anterior pararenal space. SPLEEN: Enlarged. ADRENAL GLANDS: Thickening of the adrenal glands. KIDNEYS AND URETERS: The kidneys are symmetric in size. No renal or ureteral calculus. Nonspecific perinephric stranding. No hydronephrosis. BLADDER: Underdistended. Mild bladder wall thickening. GASTROINTESTINAL TRACT: Diverticular disease of the colon. No small bowel obstruction. Appendix is within normal limits. ABDOMINAL WALL: No significant hernia is appreciated. LYMPH NODES: No bulky lymphadenopathy. VASCULAR: Normal caliber abdominal aorta. PELVIC VISCERA: Coarse calcifications of the prostate gland. OSSEOUS STRUCTURES: No destructive bone lesions. CT/CT abdomen pelvis wo IV con IMPRESSION: Fluid in the left anterior pararenal space with fullness of the pancreatic tail. The possibility of acute pancreatitis cannot be excluded. Advise correlation with pancreatic enzymes. No nephrolithiasis or hydronephrosis. Mild bladder wall thickening. Advise correlation with urinalysis. Hepatosplenomegaly.
--- NOTE | ~2023-06-03 | XR_ITS ---
EXAMINATION: XR CHEST CLINICAL INFORMATION: Cough COMPARISON: Chest 01/03/2022 TECHNIQUE: AP sitting view of the chest was obtained. 1405 FINDINGS: No focal consolidation or interstitial pulmonary edema. No pleural effusion. Again noted is central peribronchial thickening. No significant abnormality is noted involving the heart, mediastinum, bony thorax or soft tissues. Marked calcification of the the lower thoracic aorta is indicative of atherosclerotic disease. XR/XR chest 1V IMPRESSION: No acute cardiopulmonary disease.
--- NOTE | ~2023-06-03 | XR_ITS ---
EXAMINATION: XR ANKLE, RIGHT CLINICAL INFORMATION: Right ankle swelling. COMPARISON: Right foot and ankle radiographs dated 01/09/2023. TECHNIQUE: AP, lateral, and mortise views of the right ankle. FINDINGS: No acute fracture or dislocation. The ankle mortise is maintained. No concerning lytic or blastic osseous lesion. No abnormal soft tissue calcification. Circumferential soft tissue swelling, most prominent laterally. XR/XR ankle RT 2V IMPRESSION: 1. Circumferential soft tissue swelling, most prominent laterally. 2. No acute osseous abnormality.
[2023-06-03 10:53] VITALS: BP 107/81; PULSE 88; RESP 18; TEMP 36.6; O2SAT 97; BMI 29.5
[2023-06-03 11:28] LABS: MANUAL DIFF FLAG NO
[2023-06-03 11:39] LABS: Basophils Absolute Auto 0.1 X10*3/uL (0.0-0.2); Basophils Percent Auto 0.7 % (0-2); Eosinophils Absolute Auto 0.2 X10*3/uL (0.0-0.4); Eosinophils Percent Auto 1.7 % (0-4); Hematocrit 44.9 % (42.0-52.0); Hemoglobin 15.2 g/dl (14.0-18.0); Imm Gran Abs Auto 0.08 X10*3/uL (0.00-0.03); Imm Gran Pct Auto 0.9 % (0.0-0.4); Lymphocytes Absolute Auto 1.8 X10*3/uL (1.2-4.9); Lymphocytes Percent Auto 20.4 % (20-40); Mean Corpuscular HGB Conc 33.9 g/dl (31.0-36.0); Mean Corpuscular Hemoglobin 30.4 pg (27.0-33.0); Mean Corpuscular Volume 89.8 fL (80.0-98.0); Mean Platelet Volume 13.6 fL (9.4-12.4); Monocytes Percent Auto 11.5 % (2-11); Neutrophils Absolute Auto 5.8 x10*3/uL (2.0-8.3); Neutrophils Percent Auto 64.8 % (45-73); Platelet Count 174 X10*3/uL (160-400); Red Cell Distribution Width 14.4 % (11.0-16.0)
[2023-06-03 11:41] LABS: Anion Gap 17 (12-20); Blood Urea Nitrogen 14 mg/dL (9-16); Calcium 10.8 mg/dL (8.4-10.2); Carbon Dioxide 29 mmol/L (22-29); Chloride 98 mmol/L (96-108); Creatinine Clr Calc Pharmacy 56.9; Estimated Glomerular Filt Rate > 60; Glucose Random 130 mg/dL (60-115); Potassium 3.4 mmol/L (3.3-5.1); Sodium 141 mmol/L (135-145)
--- NOTE | 2023-06-03 13:31 | ED.GENADULT ---
HPI - General Adult General Chief complaint: General Medical Stated complaint: R leg pain/Blood in urine Time Seen by Provider: 06/03/23 13:31 Source: patient Mode of arrival: ambulatory Limitations: no limitations Related Data Home Medications Medication Instructions Recorded Confirmed amlodipine 10 mg tablet 10 mg PO DAILY 03/07/22 magnesium oxide 250 mg PO DAILY 03/07/22 Previous Rx's Medication Instructions Recorded doxycycline monohydrate 100 mg 100 mg PO BID #14 caps 08/09/20 capsule prednisone 20 mg tablet 40 mg (2 x 20 mg) PO DAILY #10 tabs 08/09/20 omeprazole 20 mg capsule,delayed 20 mg PO DAILY #14 caps 05/04/21 release lidocaine 5 % topical patch 1 patch topical DAILY #15 ea 08/15/21 (Lidoderm) furosemide 40 mg tablet (Lasix) 40 mg PO DAILY 30 days #30 tabs 01/03/22 potassium chloride 10 mEq 10 meq PO DAILY #30 tabs 01/03/22 tablet,extended release(part/cryst) furosemide 40 mg tablet (Lasix) 40 mg PO DAILY 60 days #60 tabs 02/19/22 potassium chloride 10 mEq 10 meq PO DAILY 60 days #60 caps 02/19/22 capsule,extended release indomethacin 50 mg capsule 50 mg PO Q8H gout pain #20 caps 08/14/22 oxycodone 5 mg tablet 5 mg PO Q6H PRN pain #14 tabs 08/14/22 prednisone 20 mg tablet 40 mg (2 x 20 mg) PO DAILY 08/14/22 inflammation 5 days #10 tabs cyclobenzaprine 10 mg tablet 10 mg PO TID PRN muscle spasm #10 10/17/22 tabs ibuprofen 600 mg tablet 600 mg PO Q8H PRN pain #10 tabs 10/17/22 lidocaine 5 % topical patch 1 patch topical DAILY #15 ea 10/17/22 naproxen 500 mg tablet 500 mg PO BID 7 days #14 tabs 01/09/23 prednisone 20 mg tablet 40 mg (2 x 20 mg) PO DAILY 5 days 01/09/23 #10 tabs acetaminophen 325 mg capsule 650 mg (2 x 325 mg) PO Q4H PRN 06/03/23 (Tylenol) pain #30 caps albuterol sulfate 90 mcg/actuation 2 inh inhalation Q4-6H PRN 06/03/23 breath activated powder inhaler shortness of breath or wheezing #1 ea doxycycline hyclate 100 mg capsule 100 mg PO BID 10 days #20 caps 06/03/23 prednisone 50 mg tablet 50 mg PO DAILY 5 days #5 tabs 06/03/23 Allergies Allergy/AdvReac Type Severity Reaction Status Date / Time No Known Allergies Allergy Verified 01/09/23 13:53 [No Known Allergies*] Review of Systems Review of Systems: Constitutional : No Weight loss, No Fever, No Chills, No Fatigue, No Malaise ENT/Mouth : No sore throat, No Rhinorrhea Eyes: No Eye Pain, No Swelling, No Redness Cardiovascular : No Chest Pain, No SOB, No Dyspnea on Exertion, No Orthopnea, No Edema, No Palpitations Respiratory : + Cough, No Sputum, No Wheezing Gastrointestinal : No Nausea, No Vomiting, No Diarrhea, No Constipation, No abdominal Pain, No Hematochezia, No Melena Genitourinary : No Dysuria, No Urinary Frequency, + Hematuria, Musculoskeletal : No joint pain, No Myalgias, No Joint Swelling, + leg pain Skin : No Skin Lesions, No rash Neuro : No Weakness, No Numbness, No Dizziness, No Headache Psych : No Anxiety/Panic, No Depression All other systems reviewed and are negative Yes all other systems are reviewed and are negative [facility] Past Medical History Attestation statement: The following information was validated with the patient. Source: old records reviewed and nursing notes reviewed Medical History Hypertension Social History Social History Alcohol intake: current Alcohol intake frequency: a few times a month Patient Tobacco Use Status: Former Tobacco user Advance Directives: No Advance Directives Information Provided: Yes Physical Exam ED Vital Signs: Vital Signs - 24 hr 06/03/23 10:53 06/03/23 14:27 06/03/23 15:27 Temperature 97.9 F 98.2 F 98.6 F Pulse Rate 88 90 84 Respiratory Rate 18 17 16 Blood Pressure 107/81 117/81 107/75 Pulse Oximetry 97 94 95 Oxygen Delivery Method Room Air Room Air Room Air 06/03/23 18:00 Temperature Pulse Rate 91 Respiratory Rate 16 Blood Pressure 117/75 Pulse Oximetry 96 Oxygen Delivery Method Room Air BMI result Body Mass Index 29.5 vss Appearance: Alert.? Oriented X3.? No acute distress.? Head: Normocephalic, atraumatic, no step-offs or deformities Eyes: Pupils equal, round and reactive to light.? Neck: Normal inspection.? Neck supple.? CVS: Normal heart rate and rhythm.? Pulses normal.? Respiratory: No respiratory distress.? Breath sounds normal.? Abdomen: Soft and nontender.? Skin: Skin warm and dry.? Normal skin color.? Normal skin turgor.? Extremities: No lower extremity edema.? No calf ttp. 5/5 strength to bilateral upper and lower extremities Back: No midline tenderness, no C-spine tenderness, full range of motion, no CVA tenderness bilaterally Neuro: Oriented X 3.? No motor deficit.? No sensory deficit. CN 2-12 intact Course Reevaluation(s) Reevaluation #1: CBC wnl slightly. ESR chronically elevated. Chemistry unremarkable no acute findings requiring intervention. Negative covid and flu. Reevaluation #2: Upon chart review patient is s/p right bunionectomy in December and presented with similar complaint 5 months ago. Time: 14:03 Reevaluation #3: CT of abd w/ fluid in the left anterior pararenal space w/ fulness of the pancreatic tail i do not suspect acute pancreatitis no LUQ pain and normal lipasae. Patient also tollerating po, no concerns of abd pain. Bladder wall thickening is noted UA pending. Time: 15:57 Additional Reevaluation(s): Sign out to Isma Sheth pending reeval, urine and dispo Consultations Consultation #1: Urine negative for UTI. only shows blood. Patient is safe for discharge. Patient not in distress. Lipase normal. patient has no abdominal pain. not suspecting pancreatitis. Time: 18:12 Medications Administered Discontinued Medications Generic Name Dose Route Start Last Admin Trade Name Freq PRN Reason Stop Dose Admin Acetaminophen 975 mg 06/03/23 14:15 06/03/23 14:38 Acetaminophen 325 Mg Tablet PO 06/03/23 14:16 975 mg ONCE ONE Administration Prednisone 50 mg 06/03/23 14:15 06/03/23 14:38 Prednisone 10 Mg Tablet PO 06/03/23 14:16 50 mg ONCE ONE Administration Medical Decision Making Medical Decision Making [facility] Narrative: 1344 72-year-old male presents for complaints of blood in urine, productive cough, right ankle swelling all abuse going on for the past few days physical exam with notable right ankle swelling, tenderness to palpation to the medial and lateral aspect of right ankle, normal sensation distally. Full range of motion however slightly uncomfortable. 2+ DP,AT,PT pulses equal and b/l. Lungs clear. RRR. Right ankle pain/ swelling likely secondary to gout versus pseudogout versus inflammatory arthritis. Unlikely septic joint, neurovascular compromise, threat to limb, arterial or venous occlusion. Cough likely viral vs chronic lung condition. Unlikley acutre repsiratory distress, pe, disection, flail chest or pneumothorax. Blood in urine ? UTI vs cystis vs kindey stone. Unlikely obstructive uropathy. Plan- labs, viral test, urine, xray Differential Diagnosis Differential Diagnoses: The differential diagnosis associated with the presentation includes Right ankle pain/ swelling likely secondary to gout versus pseudogout versus inflammatory arthritis. Unlikely septic joint, neurovascular compromise, threat to limb, arterial or venous occlusion. Cough likely viral vs chronic lung condition. Unlikley acutre repsiratory distress, pe, disection, flail chest or pneumothorax. Blood in urine ? UTI vs cystis vs kindey stone. Unlikely obstructive uropathy. Admission/Observation Consideration of admission/observation: Escalation of care including admission/observation considered Unlikely Lab Data MDM Lab Attestation statement: I reviewed the patient's lab results. 06/03/23 11:22 06/03/23 11:22 Labs: Lab Results 06/03/23 06/03/23 06/03/23 Range/Units 11:22 14:17 16:30 WBC 9.0 (4.8-10.8) X10*3/uL RBC 5.00 (4.60-5.80) X10*6/uL Hgb 15.2 (14.0-18.0) g/dl Hct 44.9 (42.0-52.0) % MCV 89.8 (80.0-98.0) fL MCH 30.4 (27.0-33.0) pg MCHC 33.9 (31.0-36.0) g/dl RDW 14.4 (11.0-16.0) % Plt Count 174 D (160-400) X10*3/uL MPV 13.6 H (9.4-12.4) fL Immature Gran % (Auto) 0.9 H (0.0-0.4) % Neut % (Auto) 64.8 (45-73) % Lymph % (Auto) 20.4 (20-40) % [place] % (Auto) 11.5 H (2-11) % Eos % (Auto) 1.7 (0-4) % Baso % (Auto) 0.7 (0-2) % Lymph # (Auto) 1.8 (1.2-4.9) X10*3/uL [place] # (Auto) 1.0 (0.1-1.2) X10*3/uL Eos # (Auto) 0.2 (0.0-0.4) X10*3/uL Baso # (Auto) 0.1 (0.0-0.2) X10*3/uL Abs Immat Gran (auto) 0.08 H (0.00-0.03) X10*3/uL Absolute Neuts (auto) 5.8 (2.0-8.3) x10*3/uL Absolute Nucleated RBC 0.000 (0.0-0.012) X10*3/uL Nucleated RBC % (auto) 0.0 (0.0-0.2) /100WBC ESR 77 H (0-15) MM/HR Sodium 141 (135-145) mmol/L Potassium 3.4 (3.3-5.1) mmol/L Chloride 98 (96-108) mmol/L Carbon Dioxide 29 (22-29) mmol/L Anion Gap 17 (12-20) BUN 14 (9-16) mg/dL Creatinine 0.99 (0.5-1.4) mg/dL Estim Creat Clear Calc 56.9 Estimated GFR > 60 Random Glucose 130 H (60-115) mg/dL Calcium 10.8 H D (8.4-10.2) mg/dL Total Bilirubin 0.5 (0.0-1.0) mg/dL Direct Bilirubin 0.2 (0.0-0.5) mg/dL AST 62 H (5-37) U/L ALT 32 (0-40) U/L Alkaline Phosphatase 68 (39-117) U/L C-Reactive Protein 10.53 H (< or = 0.50) mg/dL Total Protein 8.0 (6.5-8.0) g/dL Albumin 4.0 (3.5-5.0) g/dL Lipase 30 (8-78) U/L Urine Color Dark Yellow Urine Appearance Cloudy Urine pH 5.5 (5.0-9.0) Ur Specific [place] 1.020 (1.005-1.025) Urine Protein Trace (Neg-Trace) mg/dL Urine Glucose (UA) Negative (Negative) mg/dL Urine Ketones Trace (Negative) mg/dL Urine Blood Negative (Negative) Urine Nitrite Negative (Negative) Ur Leukocyte Esterase Trace H (Negative) Urine RBC 6-10 H (0-2) /HPF Urine WBC 0-5 (0-5) /HPF Ur Squamous Epith Cells 3-5 (0-2) /HPF Calcium Oxalate Crystal Present Urine Bacteria None Seen (None Seen) Hyaline Casts >20 (0-2) /LPF Granular Casts Present COVID-19 (MESSI) Negative (Negative) COVID-19 Clin Com See Note Influenza Type A (JULES) Negative (Negative) Influenza Type B (JULES) Negative (Negative) Influenza A & B Note See Note Critical Care Time Critical Care Time Critical Care Time: No Discharge Plan Discharge Clinical Impression: Bronchitis, Hematuria, Ankle pain, right Patient Disposition: Home, Self-Care Instructions: Acute Bronchitis (ED), Hematuria (ED) Additional Instructions: Take your medications as prescribed. If you were prescribed antibiotics today, it is important that you take your medication to their entirety, do not skip any doses, do not finish them early. Follow-up with your primary care provider this week. Follow up with ortho if needed and follow up with urology Return to the emergency department with new or worsening symptoms. Such as fevers, chills, chest pain, shortness of breath, nausea, vomiting, dizziness, headache, vision changes, lethargy In case of emergency call 911 [place] lizy medicamentos seg?n lo recetado. Si hoy te recetaron antibi?ticos, es importante que tomes tu medicaci?n en baker totalidad, no te saltes ninguna dosis, no las termines antes de tiempo. Ariella un seguimiento con baker proveedor de atenci?n primaria esta semana. Seguimiento con ortopedia si es necesario y seguimiento con urolog?a Regrese al departamento de emergencias si los s?ntomas son nuevos o empeoran. Gonzalo fiebre, escalofr?os, dolor de pecho, dificultad para respirar, n?useas, v?mitos, mareos, dolor de neo, cambios en la visi?n, letargo. En teo de emergencia llame al 911. XR/XR ankle RT 2V IMPRESSION: 1. Circumferential soft tissue swelling, most prominent laterally. 2. No acute osseous abnormality. [place]illo XR/XR RT 2V IMPRESI?N: 1. Hinchaz?n circunferencial de los tejidos blandos, m?s prominente lateralmente. 2. Sin anomal?a ?sea aguda. Prescriptions: New doxycycline hyclate 100 mg capsule 100 mg PO BID 10 Days Qty: 20 0RF prednisone 50 mg tablet 50 mg PO DAILY 5 Days Qty: 5 0RF albuterol sulfate 90 mcg/actuation aerosol powdr breath activated 2 inh inhalation Q4-6H PRN (Reason: shortness of breath or wheezing) Qty: 1 0RF acetaminophen [Tylenol] 325 mg capsule 650 mg PO Q4H PRN (Reason: pain) Qty: 30 0RF No Action prednisone 20 mg tablet 40 mg PO DAILY Qty: 10 0RF doxycycline monohydrate 100 mg capsule 100 mg PO BID Qty: 14 0RF furosemide [Lasix] 40 mg tablet 40 mg PO DAILY 60 Days Qty: 60 0RF potassium chloride 10 mEq capsule, extended release 10 meq PO DAILY 60 Days Qty: 60 0RF omeprazole 20 mg capsule,delayed release(DR/EC) 20 mg PO DAILY Qty: 14 0RF lidocaine [Lidoderm] 5 % adhesive patch,medicated 1 patch topical DAILY Qty: 15 0RF Rx Instructions: leave on most painful area for up to 12 hrs furosemide [Lasix] 40 mg tablet 40 mg PO DAILY 30 Days Qty: 30 0RF potassium chloride 10 mEq tablet,ER particles/crystals 10 meq PO DAILY Qty: 30 0RF indomethacin 50 mg capsule 50 mg PO Q8H Qty: 20 0RF Rx Instructions: administer with food or milk prednisone 20 mg tablet 40 mg PO DAILY 5 Days Qty: 10 0RF oxycodone 5 mg tablet 5 mg PO Q6H PRN (Reason: pain) Qty: 14 0RF Rx Instructions: Partial Fill upon patient request. ibuprofen 600 mg tablet 600 mg PO Q8H PRN (Reason: pain) Qty: 10 0RF lidocaine 5 % adhesive patch,medicated 1 patch topical DAILY Qty: 15 0RF Rx Instructions: leave on most painful area for up to 12 hrs cyclobenzaprine 10 mg tablet 10 mg PO TID PRN (Reason: muscle spasm) Qty: 10 0RF prednisone 20 mg tablet 40 mg PO DAILY 5 Days Qty: 10 0RF naproxen 500 mg tablet 500 mg PO BID 7 Days Qty: 14 0RF magnesium oxide 250 mg magnesium tablet 250 mg PO DAILY amlodipine 10 mg tablet 10 mg PO DAILY Referrals: [facility] [place] [facility] [Provider Group] - 2 days [facility] [place] U[facility] Services [Provider Group] - 2 days Physician,Unknown J [Primary Care Provider] - 2 days Interventions: ED Discharge Assessment Last Done: 06/03/23 18:13 Discharge Date/Time: 06/03/23 18:15 Print Language: Chadian
[2023-06-03 14:27] VITALS: BP 117/81; PULSE 90; RESP 17; TEMP 36.8; O2SAT 94
[2023-06-03] MEDS: Acetaminophen 325 MG TABLET 975 MG PO (14:38)
[2023-06-03] MEDS: predniSONE 10 MG TABLET 50 MG PO (14:38)
[2023-06-03 14:39] LABS: C Reactive Protein 10.53 mg/dL (< or = 0.50)
[2023-06-03 14:42] LABS: COVID-19 Test Negative (Negative); IDNOW Serial# 9DB6401D; IDNOW Serial# BCCEAD1C; Influenza A Negative (Negative); Influenza B2 Negative (Negative)
[2023-06-03 15:04] LABS: Erythrocyte Sedimentation Rate 77 MM/HR (0-15)
[2023-06-03 15:27] VITALS: BP 107/75; PULSE 84; RESP 16; TEMP 37; O2SAT 95
[2023-06-03 15:27] LABS: Alanine Aminotransferase 32 U/L (0-40); Alkaline Phosphatase 68 U/L (39-117); Aspartate Amino Transferase 62 U/L (5-37); Bilirubin Direct 0.2 mg/dL (0.0-0.5); Bilirubin Total 0.5 mg/dL (0.0-1.0); Lipase 30 U/L (8-78)
--- NOTE | 2023-06-03 15:27 | PC.NURSE ---
report taken from previous rn pt resting comfortably. pt noted to have = and strong pedal pulses, pt reports pain 0/10. awaiting lft labs. call mejia within reach. pt is caox4 wit wpd skin and nonlabored resps.
[2023-06-03 16:39] LABS: Appearance Urine Cloudy; Color Urine Dark Yellow; Glucose Urine UA Negative (Negative); Leukocyte Esterase Urine Trace (Negative); Nitrite Urine Negative (Negative); PH 5.5 (5.0-9.0); UMIC TRIGGER UACC YES; Urine Blood Negative (Negative); Urine Ketones Trace mg/dL (Negative); Urine Protein Trace mg/dL (Neg-Trace)
[2023-06-03 17:00] LABS: Bacteria Urine None Seen (None Seen); Calcium Oxalate Crystals Urine Present; Granular Casts Urine Present; Hyaline Casts Urine >20 /LPF (0-2); WBC Urine 0-5 /HPF (0-5)
[2023-06-03 18:00] VITALS: BP 117/75; PULSE 91; RESP 16; O2SAT 96
== END 2023-06-03 18:15 | disposition home or self-care (01) ==
PROVIDERS: Physician Assistant; Physician Assistant Medical; Emergency Provider Emergency Medicine
DX: J40 Bronchitis, not specified as acute or chronic (principal); R31.9 Hematuria, unspecified; M25.571 Pain in right ankle and joints of right foot; R05.9 Cough, unspecified; M25.471 Effusion, right ankle; Z11.52 Encounter for screening for COVID-19
CPT/HCPCS: 36415; 71045; 73600; 74176; 80048; 80076; 81001; 83690; 85025; 85652; 86140; 87502; 87635; 99283; 99284

== ENCOUNTER 2023-06-24 12:27 | Emergency (ER) | payer MEDICARE, SELFPAY ==
--- NOTE | ~2023-06-24 | XR_ITS ---
EXAMINATION: XR HAND, RIGHT CLINICAL INFORMATION: Pain and swelling COMPARISON: None available. TECHNIQUE: PA, lateral, and oblique views of the right hand. FINDINGS: There is loss of PIP and DIP joint space all digits. The MCP joint space is maintained normal. There is no visible fracture, dislocation or subluxation. No bony erosive changes. No loose bodies. There is mild dorsal distal hand soft tissue swelling. XR/XR hand RT min 3V IMPRESSION: Mild degenerative changes PIP and DIP joints. No visible acute fracture or dislocation seen.
[2023-06-24 12:29] VITALS: BP 133/100; PULSE 86; RESP 18; TEMP 37.8; O2SAT 100; BMI 28.8
--- NOTE | 2023-06-24 12:31 | ED_ITS ---
HPI - General Adult General Chief complaint: Extremity Injury, Upper Stated complaint: hand and legs swelling pain Time Seen by Provider: 06/24/23 16:37 Source: patient and family Mode of arrival: ambulatory History of Present Illness HPI narrative: 72-year-old male who presents with swelling in his right hand and foot/ankle pain is well. Patient states that this is not been associated with any fever, chills, traumatic injury and that the steroids did improve the symptoms. He denies any history of diabetes. Related Data Home Medications Medication Instructions Recorded Confirmed amlodipine 10 mg tablet 10 mg PO DAILY 03/07/22 magnesium oxide 250 mg PO DAILY 03/07/22 Previous Rx's Medication Instructions Recorded doxycycline monohydrate 100 mg 100 mg PO BID #14 caps 08/09/20 capsule prednisone 20 mg tablet 40 mg (2 x 20 mg) PO DAILY #10 tabs 08/09/20 omeprazole 20 mg capsule,delayed 20 mg PO DAILY #14 caps 05/04/21 release lidocaine 5 % topical patch 1 patch topical DAILY #15 ea 08/15/21 (Lidoderm) furosemide 40 mg tablet (Lasix) 40 mg PO DAILY 30 days #30 tabs 01/03/22 potassium chloride 10 mEq 10 meq PO DAILY #30 tabs 01/03/22 tablet,extended release(part/cryst) furosemide 40 mg tablet (Lasix) 40 mg PO DAILY 60 days #60 tabs 02/19/22 potassium chloride 10 mEq 10 meq PO DAILY 60 days #60 caps 02/19/22 capsule,extended release indomethacin 50 mg capsule 50 mg PO Q8H gout pain #20 caps 08/14/22 oxycodone 5 mg tablet 5 mg PO Q6H PRN pain #14 tabs 08/14/22 prednisone 20 mg tablet 40 mg (2 x 20 mg) PO DAILY 08/14/22 inflammation 5 days #10 tabs cyclobenzaprine 10 mg tablet 10 mg PO TID PRN muscle spasm #10 10/17/22 tabs ibuprofen 600 mg tablet 600 mg PO Q8H PRN pain #10 tabs 10/17/22 lidocaine 5 % topical patch 1 patch topical DAILY #15 ea 10/17/22 naproxen 500 mg tablet 500 mg PO BID 7 days #14 tabs 01/09/23 prednisone 20 mg tablet 40 mg (2 x 20 mg) PO DAILY 5 days 06/21/23 #10 tabs acetaminophen 325 mg capsule 650 mg (2 x 325 mg) PO Q4H PRN 06/03/23 (Tylenol) pain #30 caps albuterol sulfate 90 mcg/actuation 2 inh inhalation Q4-6H PRN 06/03/23 breath activated powder inhaler shortness of breath or wheezing #1 ea doxycycline hyclate 100 mg capsule 100 mg PO BID 10 days #20 caps 06/03/23 prednisone 50 mg tablet 50 mg PO DAILY 5 days #5 tabs 06/03/23 prednisone 20 mg tablet 20 mg PO DAILY #4 tabs 06/24/23 Allergies Allergy/AdvReac Type Severity Reaction Status Date / Time No Known Allergies Allergy Verified 01/09/23 13:53 [No Known Allergies*] Review of Systems 2 Review of Systems: Pertinent positives and negatives as stated in [facility] Past Medical History Source: nursing notes reviewed Medical History Hypertension Social History Social History Alcohol intake: current Alcohol intake frequency: holidays/special occasions only Patient Tobacco Use Status: Former Tobacco user Smoked in Last 30 Days: No Use of substances other than those prescribed or required for medical reasons: No Advance Directives: No Advance Directives Information Provided: No Physical Exam ED Vital Signs: Vital Signs - 24 hr 06/24/23 12:29 06/24/23 16:30 Temperature 100.1 F 98.5 F Pulse Rate 86 82 Respiratory Rate 18 16 Blood Pressure 133/100 H 148/86 H Pulse Oximetry 100 98 Oxygen Delivery Method Room Air Room Air BMI result Body Mass Index 28.8 VITAL SIGNS: Reviewed. GENERAL: Well developed, well nourished, in no acute distress. HEAD: Normocephalic/atraumatic EYES: PERRLA, EOMI EARS: Ext canals without abnormality NOSE: Nares patent bilateral OROPHARYNX: no oral lesions noted, posterior pharynx clear NECK: Supple, no adenopathy LUNGS: Normal breath sounds. No adventitious sounds or accessory muscle use. SpO2<98> CARDIOVASCULAR: Regular rate and rhythm without noted murmurs ABDOMEN: Soft, non-tender, non-distended with bowel sounds. MUSCULOSKELETAL: No tenderness, deformities, or effusions noted on gross inspection. EXTREMITIES: No cyanosis, clubbing or edema. RIGHT HAND: Erythema and swelling across index/middle/ring finger MCPs, tenderness to palpation, there is no induration, otherwise neurovascular intact SKIN: Inspection of the skin reveals no rashes NEUROLOGIC: Alert and oriented x 4. Strength and sensation to light touch were grossly intact x 4. Course Course Course Narrative: RME performed by Ayanna Abreu PA-C. Patient is a 72 year old assigned male at presenting to the emergency department with right hand swelling. Labs and imaging ordered. Patient placed back in the waiting room pending room availability and results. Medical Decision Making Medical Decision Making [facility] Narrative: 72-year-old male with history and clinical presentation, I reviewed all investigations as well as prior documentation and although differential diagnosis may have included gout previously given the number of joints that are involved and on review of the x-ray this appears to be most consistent with a possible rheumatoid arthritis etiology, CRP is elevated but this is likely secondary to obvious inflammation. Otherwise, hematologic indices are not significant for leukocytosis or left shift. Chemistry indices are grossly within normal limits with the exception of CRP which is significantly improved since prior value on 06/03. Patient provided with initial dose of steroids here and will be discharged on a low dose of 20 mg daily. He does have a follow-up appointment with his primary care provider tomorrow morning. My recommendation to both he and his family member are that he obtain referral for Rheumatology as well as proceed with further workup. I did add on a rheumatoid factor level which will be available for his primary care provider tomorrow. Differential Diagnosis Differential Diagnoses: The differential diagnosis associated with the presentation includes Please see the discussion above Admission/Observation Consideration of admission/observation: Escalation of care including admission/observation considered Please see the discussion above Lab Data [facility] Lab Attestation statement: I reviewed the patient's lab results. Please see the discussion above 06/24/23 13:16 06/24/23 13:15 Labs: Lab Results 06/24/23 06/24/23 Range/Units 13:15 13:16 WBC 7.4 (4.8-10.8) X10*3/uL RBC 4.50 L (4.60-5.80) X10*6/uL Hgb 13.9 L (14.0-18.0) g/dl Hct 41.9 L (42.0-52.0) % MCV 93.1 (80.0-98.0) fL MCH 30.9 (27.0-33.0) pg MCHC 33.2 (31.0-36.0) g/dl RDW 14.2 (11.0-16.0) % Plt Count 210 (160-400) X10*3/uL MPV 11.5 (9.4-12.4) fL Immature Gran % (Auto) 0.5 H (0.0-0.4) % Neut % (Auto) 67.0 (45-73) % Lymph % (Auto) 18.2 L (20-40) % Jennings % (Auto) 12.1 H (2-11) % Eos % (Auto) 1.8 (0-4) % Baso % (Auto) 0.4 (0-2) % Lymph # (Auto) 1.4 (1.2-4.9) X10*3/uL Jennings # (Auto) 0.9 (0.1-1.2) X10*3/uL Eos # (Auto) 0.1 (0.0-0.4) X10*3/uL Baso # (Auto) 0.0 (0.0-0.2) X10*3/uL Abs Immat Gran (auto) 0.04 H (0.00-0.03) X10*3/uL Absolute Neuts (auto) 5.0 (2.0-8.3) x10*3/uL Absolute Nucleated RBC 0.000 (0.0-0.012) X10*3/uL Nucleated RBC % (auto) 0.0 (0.0-0.2) /100WBC ESR 50 H (0-15) MM/HR Sodium 139 (135-145) mmol/L Potassium 4.2 D (3.3-5.1) mmol/L Chloride 105 (96-108) mmol/L Carbon Dioxide 26 (22-29) mmol/L Anion Gap 12 (12-20) BUN 13 (9-16) mg/dL Creatinine 0.80 (0.5-1.4) mg/dL Estim Creat Clear Calc 72.4 Estimated GFR > 60 Random Glucose 104 (60-115) mg/dL Calcium 9.5 D (8.4-10.2) mg/dL Total Bilirubin 0.8 (0.0-1.0) mg/dL AST 18 (5-37) U/L ALT 16 (0-40) U/L Alkaline Phosphatase 62 (39-117) U/L C-Reactive Protein 3.81 H (< or = 0.50) mg/dL Total Protein 7.2 (6.5-8.0) g/dL Albumin 3.9 (3.5-5.0) g/dL Radiology Impression Discussion of test interpretation with radiology: I have reviewed the radiologist's reading. Radiologist Impression: Please see the discussion above External Record Review External record reviewed: Outpatient record, Prior outpatient labs and Prior outpatient radiology Chronic Conditions Patient?s care impacted by: Hypertension Discharge Plan Discharge Clinical Impression: Polyarthralgia Patient Disposition: Home, Self-Care Instructions: Rheumatoid Arthritis (ED), Arthralgia (ED) Additional Instructions: 1. Reanudar todos los medicamentos caseros seg?n lo recetado. 2. Complete el ciclo corto de esteroides que le recetaron; deber? discutir pawan plan con baker proveedor de atenci?n primaria para que pueda ajustar el ciclo de lizy esteroides. 3. Por favor acuda a la lefty programada con baker proveedor de atenci?n primaria por la ma?helen. Regrese a la roberta de emergencias si los s?ntomas empeoran. 1. Resume all home medications as prescribed. 2. Please complete the short course of steroids that you have been prescribed, you will need to discuss this plan with your primary care provider is they may adjust the course of your steroids. 3. Please keep the scheduled appointment for your primary care provider in the morning Return to the ER for any worsening symptoms. Prescriptions: New prednisone 20 mg tablet 20 mg PO DAILY Qty: 4 0RF No Action prednisone 20 mg tablet 40 mg PO DAILY Qty: 10 0RF doxycycline monohydrate 100 mg capsule 100 mg PO BID Qty: 14 0RF furosemide [Lasix] 40 mg tablet 40 mg PO DAILY 60 Days Qty: 60 0RF potassium chloride 10 mEq capsule, extended release 10 meq PO DAILY 60 Days Qty: 60 0RF omeprazole 20 mg capsule,delayed release(DR/EC) 20 mg PO DAILY Qty: 14 0RF lidocaine [Lidoderm] 5 % adhesive patch,medicated 1 patch topical DAILY Qty: 15 0RF Rx Instructions: leave on most painful area for up to 12 hrs furosemide [Lasix] 40 mg tablet 40 mg PO DAILY 30 Days Qty: 30 0RF potassium chloride 10 mEq tablet,ER particles/crystals 10 meq PO DAILY Qty: 30 0RF indomethacin 50 mg capsule 50 mg PO Q8H Qty: 20 0RF Rx Instructions: administer with food or milk prednisone 20 mg tablet 40 mg PO DAILY 5 Days Qty: 10 0RF oxycodone 5 mg tablet 5 mg PO Q6H PRN (Reason: pain) Qty: 14 0RF Rx Instructions: Partial Fill upon patient request. doxycycline hyclate 100 mg capsule 100 mg PO BID 10 Days Qty: 20 0RF prednisone 50 mg tablet 50 mg PO DAILY 5 Days Qty: 5 0RF albuterol sulfate 90 mcg/actuation aerosol powdr breath activated 2 inh inhalation Q4-6H PRN (Reason: shortness of breath or wheezing) Qty: 1 0RF acetaminophen [Tylenol] 325 mg capsule 650 mg PO Q4H PRN (Reason: pain) Qty: 30 0RF ibuprofen 600 mg tablet 600 mg PO Q8H PRN (Reason: pain) Qty: 10 0RF lidocaine 5 % adhesive patch,medicated 1 patch topical DAILY Qty: 15 0RF Rx Instructions: leave on most painful area for up to 12 hrs cyclobenzaprine 10 mg tablet 10 mg PO TID PRN (Reason: muscle spasm) Qty: 10 0RF prednisone 20 mg tablet 40 mg PO DAILY 5 Days Qty: 10 0RF naproxen 500 mg tablet 500 mg PO BID 7 Days Qty: 14 0RF magnesium oxide 250 mg magnesium tablet 250 mg PO DAILY amlodipine 10 mg tablet 10 mg PO DAILY Referrals: Yaneth Soto MD [Primary Care Provider] -
[2023-06-24 13:22] LABS: MANUAL DIFF FLAG NO
[2023-06-24 13:28] LABS: Basophils Percent Auto 0.4 % (0-2); Eosinophils Absolute Auto 0.1 X10*3/uL (0.0-0.4); Eosinophils Percent Auto 1.8 % (0-4); Hematocrit 41.9 % (42.0-52.0); Hemoglobin 13.9 g/dl (14.0-18.0); Imm Gran Abs Auto 0.04 X10*3/uL (0.00-0.03); Imm Gran Pct Auto 0.5 % (0.0-0.4); Lymphocytes Absolute Auto 1.4 X10*3/uL (1.2-4.9); Lymphocytes Percent Auto 18.2 % (20-40); Mean Corpuscular HGB Conc 33.2 g/dl (31.0-36.0); Mean Corpuscular Hemoglobin 30.9 pg (27.0-33.0); Mean Corpuscular Volume 93.1 fL (80.0-98.0); Mean Platelet Volume 11.5 fL (9.4-12.4); Monocytes Absolute Auto 0.9 X10*3/uL (0.1-1.2); Monocytes Percent Auto 12.1 % (2-11); Platelet Count 210 X10*3/uL (160-400); Red Cell Distribution Width 14.2 % (11.0-16.0); White Blood Count 7.4 X10*3/uL (4.8-10.8)
[2023-06-24 13:46] LABS: Alanine Aminotransferase 16 U/L (0-40); Albumin Level 3.9 g/dL (3.5-5.0); Alkaline Phosphatase 62 U/L (39-117); Anion Gap 12 (12-20); Aspartate Amino Transferase 18 U/L (5-37); Bilirubin Total 0.8 mg/dL (0.0-1.0); Blood Urea Nitrogen 13 mg/dL (9-16); C Reactive Protein 3.81 mg/dL (< or = 0.50); Calcium 9.5 mg/dL (8.4-10.2); Carbon Dioxide 26 mmol/L (22-29); Chloride 105 mmol/L (96-108); Creatinine Clr Calc Pharmacy 72.4; Estimated Glomerular Filt Rate > 60; Glucose Random 104 mg/dL (60-115); Potassium 4.2 mmol/L (3.3-5.1); Sodium 139 mmol/L (135-145); Total Protein 7.2 g/dL (6.5-8.0)
[2023-06-24 14:11] LABS: Erythrocyte Sedimentation Rate 50 MM/HR (0-15)
[2023-06-24 16:30] VITALS: BP 148/86; PULSE 82; RESP 16; TEMP 36.9; O2SAT 98
--- NOTE | 2023-06-24 16:33 | PC.NURSE ---
pt awaiting xray results at this time. pt's oral temp decreased to 98.5. pt verbalizing 10/10 right hand pain. erythema, edema, warm to touch noted to right hand. pt states pain increase w/ movement.
--- NOTE | 2023-06-24 16:48 | PC.NURSE ---
pt speaking w/ ED provider at this time.
[2023-06-24] MEDS: predniSONE 10 MG TABLET 50 MG PO (17:47)
[2023-06-24] MEDS: Famotidine 20 MG TABLET PO (17:47)
--- NOTE | 2023-06-24 17:49 | PC.NURSE ---
medication administered per provider order.
--- NOTE | 2023-06-24 17:51 | PC.NURSE ---
nathan bandage applied to right hand - pt tolerated well. pt provided w/ d/c paperwork.
== END 2023-06-24 17:51 | disposition home or self-care (01) ==
PROVIDERS: Physician Assistant Medical; Emergency Provider Student in an Organized Health Care Education/Training Program; PCP Internal Medicine
DX: M25.541 Pain in joints of right hand (principal); M25.571 Pain in right ankle and joints of right foot; Z79.899 Other long term (current) drug therapy
CPT/HCPCS: 36415; 73130; 80053; 85025; 85652; 86140; 99283; 99284

== ENCOUNTER 2023-07-09 12:29 | Outpatient (AMB) | payer MEDICARE, SELFPAY ==
--- NOTE | 2023-07-09 14:37 | AM.OFFWIN_ITS ---
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 Patient is reporting that the skin color on the front of the right foot is changing color. Minimal discomfort. Symptoms present for the past few days. Does not recall any fall or injury. [facility] Medical History Hypertension Social History Alcohol intake: current Alcohol intake frequency: holidays/special occasions only Patient Tobacco Use Status: Former Tobacco user Physical Exam Vital Signs: Last Vital Signs Temp 98.1 F 07/09/23 14:38 Pulse 96 07/09/23 14:38 BP 114/72 07/09/23 14:38 Pulse Ox 96 07/09/23 14:38 Oxygen Delivery Method Room Air 07/09/23 14:38 BMI result Body Mass Index 29.8 Extrem Other: Right foot: Discoloration over the dorsum of the foot at the base of the toes. Minimal tenderness near the 2nd toe. Assessment & Plan Assessment & Plan (1) Contusion, foot: Code(s): S90.30XA - Contusion of unspecified foot, initial encounter Plan: X-ray images were personally reviewed by me. Unremarkable. Discoloration probably old blood. Reassurance. No medications needed. If symptoms do not improve or worsen to follow-up here. Orders: Orders 2 XR foot RT 2V Today S90.30XA - Contusion of unspecified foot, initial encounter Heber Waller MD Medications: Refilled prednisone 50 mg PO DAILY 5 days 5 tabs 0RF Ya Stevenson PA-C Coding Level of Care Code Est Pt Level 4 (90392) Diagnoses Contusion, foot S90.30XA
[2023-07-09 14:38] VITALS: BP 114/72; PULSE 96; TEMP 36.7; O2SAT 96; BMI 29.8
== END 2023-07-09 15:42 | disposition home or self-care (01) ==
PROVIDERS: PCP Internal Medicine; Visit Provider Internal Medicine
DX: S90.30XA Contusion of unspecified foot, initial encounter (principal)
CPT/HCPCS: 99214

== ENCOUNTER 2023-07-09 15:15 | Outpatient (REF) | payer MEDICARE, SELFPAY ==
--- NOTE | ~2023-07-09 | XR_ITS ---
EXAMINATION: XR FOOT, RIGHT CLINICAL INFORMATION: Contusion COMPARISON: 01/09/2023 TECHNIQUE: AP, lateral, and oblique views of the right foot. Stable first metatarsal screw and post bunionectomy changes. Mild soft tissue prominence first MTP with mild joint space narrowing, sclerosis and spurring. XR/XR foot RT 2V IMPRESSION: Stable postoperative changes. No acute bony pathology
== END 2023-07-09 15:16 | disposition home or self-care (01) ==
LOC: HO.HMGCX 15:15
PROVIDERS: PCP Internal Medicine; Visit Provider Internal Medicine
DX: S90.31XA Contusion of right foot, initial encounter (principal)
CPT/HCPCS: 73620

== ENCOUNTER 2023-08-21 13:09 | Emergency (ER) | payer MEDICARE, SELFPAY ==
--- NOTE | ~2023-08-21 | XR_ITS ---
EXAMINATION: XR KNEE, LEFT CLINICAL INFORMATION: Pain and swelling COMPARISON: None available. TECHNIQUE: Four views of the left knee. FINDINGS: There is moderate suprapatellar joint effusion. No visible acute fracture or dislocation seen. There is moderate anterior superior patellar enthesophyte. No loose bodies or bony erosive changes. XR/XR knee LT 2V IMPRESSION: 1. Moderate suprapatellar joint effusion. No visible acute fracture, dislocation or subluxation seen. 2. Moderate anterior superior patellar enthesophyte.
[2023-08-21 13:19] VITALS: BP 138/84; BP 139/77; PULSE 84; PULSE 94; RESP 18; TEMP 36.7; O2SAT 97; BMI 30.8
[2023-08-21 15:17] VITALS: BP 145/82; PULSE 102; RESP 16; TEMP 37.7; O2SAT 93
[2023-08-21 15:32] LABS: MANUAL DIFF FLAG NO
[2023-08-21 15:35] LABS: Basophils Percent Auto 0.6 % (0-2); Eosinophils Percent Auto 0.3 % (0-4); Hematocrit 39.4 % (42.0-52.0); Hemoglobin 13.6 g/dl (14.0-18.0); Imm Gran Abs Auto 0.03 X10*3/uL (0.00-0.03); Imm Gran Pct Auto 0.4 % (0.0-0.4); Lymphocytes Absolute Auto 1.2 X10*3/uL (1.2-4.9); Mean Corpuscular HGB Conc 34.5 g/dl (31.0-36.0); Mean Corpuscular Hemoglobin 31.3 pg (27.0-33.0); Mean Corpuscular Volume 90.6 fL (80.0-98.0); Mean Platelet Volume 11.8 fL (9.4-12.4); Monocytes Absolute Auto 0.8 X10*3/uL (0.1-1.2); Monocytes Percent Auto 10.5 % (2-11); Neutrophils Absolute Auto 5.2 x10*3/uL (2.0-8.3); Neutrophils Percent Auto 72.2 % (45-73); Platelet Count 147 X10*3/uL (160-400); Red Blood Count 4.35 X10*6/uL (4.60-5.80); White Blood Count 7.2 X10*3/uL (4.8-10.8)
--- NOTE | 2023-08-21 15:37 | MHC.EDTECH ---
This pct assumed care of pt at 1500 ,vitals taken ,blood drawn and sent to lab .
[2023-08-21 15:49] LABS: Alanine Aminotransferase 15 U/L (0-40); Alkaline Phosphatase 67 U/L (39-117); Anion Gap 14 (12-20); Aspartate Amino Transferase 23 U/L (5-37); Bilirubin Total 0.5 mg/dL (0.0-1.0); Blood Urea Nitrogen 10 mg/dL (9-16); Calcium 9.2 mg/dL (8.4-10.2); Carbon Dioxide 24 mmol/L (22-29); Chloride 105 mmol/L (96-108); Creatinine Clr Calc Pharmacy 85.4; Estimated Glomerular Filt Rate > 60; Glucose Random 123 mg/dL (60-115); Potassium 3.3 mmol/L (3.3-5.1); Sodium 140 mmol/L (135-145); Total Protein 6.7 g/dL (6.5-8.0)
[2023-08-21 15:50] LABS: Alanine Aminotransferase 15 U/L (0-40); Albumin Level 3.9 g/dL (3.5-5.0); Alkaline Phosphatase 65 U/L (39-117); Aspartate Amino Transferase 23 U/L (5-37); Bilirubin Direct 0.3 mg/dL (0.0-0.5); Bilirubin Total 0.6 mg/dL (0.0-1.0); Lipase 14 U/L (8-78); Magnesium 1.8 mg/dL (1.6-2.6); Total Protein 6.7 g/dL (6.5-8.0); Uric Acid 10.4 mg/dL (3.4-7.0)
[2023-08-21] MEDS: Ibuprofen 600 MG TABLET PO (17:23)
[2023-08-21] MEDS: Acetaminophen 325 MG TABLET 650 MG PO (17:23)
--- NOTE | 2023-08-21 17:34 | ED_ITS ---
HPI - Extremity Injury (Lower) General Chief Complaint: Extremity Injury, Lower Stated Complaint: L KNEE PAIN/SWELLING X3 DAYS,H/O GOUT PER EMS Time Seen by Provider: 08/21/23 16:07 Source: patient Mode of arrival: ambulatory Limitations: language barrier History of Present Illness HPI Narrative: 73 year old male with a past medical history of hypertension and gout presents emergency department with complaints of a 3 day history of left knee pain. He denies any erythema, ecchymosis, lymphangitis, warmth, falls, trauma or overuse injury to the knee. He states he used Tylenol yesterday with little relief of discomfort. He reports he has been using a cane for ambulation Pertinent positives and negatives discussed in HPI Related Data Home Medications Medication Instructions Recorded Confirmed amlodipine 10 mg tablet 10 mg PO DAILY 03/07/22 magnesium oxide 250 mg PO DAILY 03/07/22 Previous Rx's Medication Instructions Recorded acetaminophen 325 mg capsule 650 mg (2 x 325 mg) PO Q4H PRN 06/03/23 (Tylenol) pain #30 caps prednisone 50 mg tablet 50 mg PO DAILY 5 days #5 tabs 07/09/23 Allergies Allergy/AdvReac Type Severity Reaction Status Date / Time No Known Allergies Allergy Verified 07/09/23 15:17 [No Known Allergies*] Review of Systems 2 Review of Systems: Yes all other systems are reviewed and are negative [facility] Past Medical History Medical History Hypertension Social History Social History Alcohol intake: current Alcohol intake frequency: holidays/special occasions only Patient Tobacco Use Status: Former Tobacco user Smoked in Last 30 Days: No Use of substances other than those prescribed or required for medical reasons: No Advance Directives: No Advance Directives Information Provided: Yes Physical Exam 2 Vital Signs: Vital Signs: Last Vital Signs Temp 99.9 F 08/21/23 15:17 Pulse 102 H 08/21/23 15:17 Resp 16 08/21/23 15:17 BP 145/82 H 08/21/23 15:17 Pulse Ox 93 08/21/23 15:17 O2 Del Method Room Air 08/21/23 15:17 BMI result Body Mass Index 30.8 Nursing notes and vital signs reviewed. GENERAL APPEARANCE: A&0 x 4, generally well appearing, no acute distress HENMT: Normal to inspection, atraumatic, face symmetrical. Normal external ears, nose, and oropharynx clear. EYE: PERRLA, EOM intact, structures appear normal NECK: Supple without stiffness or restricted ROM. HEART: Normal rate and regular rhythm, normal S1/S2, no M/R/G LUNGS: LS CTA, moving air well. Able to speak in complete sentences. No crackles, wheezes, or rhonchi auscultated BACK: No CVAT, no obvious deformity EXTREMITIES: Normal capillary refill. Swelling left knee without evidence of eccymosis or erythema NEUROLOGICAL: Alert and oriented, moving all 4 extremities with equal strength. CN not formally tested but appearing grossly intact. Observed to ambulate with normal gait. Cognition normal SKIN: Warm and dry without any lesions, rash, or visible sores Medications Administered Discontinued Medications Generic Name Dose Route Start Last Admin Trade Name Freq PRN Reason Stop Dose Admin Acetaminophen 650 mg 08/21/23 16:41 08/21/23 17:23 Acetaminophen 325 Mg Tablet PO 08/21/23 16:42 650 mg ONCE ONE Administration Ibuprofen 600 mg 08/21/23 16:41 08/21/23 17:23 Ibuprofen 600 Mg Tablet PO 08/21/23 16:42 600 mg ONCE ONE Administration Medical Decision Making Medical Decision Making MDM Narrative: Old records reviewed for previous imaging, lab studies, ECGs, or notes. Patient was assessed the emergency department. No acute distress or toxicity noted. An x-ray of the left knee was completed which I have independently interpreted showing evidence of a joint effusion. Based on patient's physical exam diagnostics there is a low suspicion at this time for septic joint or gout patient's symptoms are consistent with a joint effusion. An Michael wrap was applied for comfort and patient educated to rest and elevate his knee. Patient educated that he can apply either ice or heat for comfort. Contact information for Orthopedics provided for follow-up if symptoms do not improve. Patient is safe for discharge at this time with plan for [id number] Tylenol and/or NSAID such as ibuprofen or naproxen for fever/discomfort with dosing as per packaging. HPI, PE, diagnostics, and plan discussed with patient and family with no unanswered questions at this time. Strict return precautions given to return to the emergency department with new, worsening, or concerning emergent symptoms. Recommended to follow-up with there primary care provider in 24-48 hours for further treatment and management. Differential Diagnosis Differential Diagnoses: The differential diagnosis associated with the presentation includes But not limited to gout, septic joint, joint effusion, bursitis, Sue's cyst, contusion, arthritis Lab Data 08/21/23 15:24 08/21/23 15:24 Labs: Lab Results 08/21/23 08/21/23 08/21/23 Range/Units 15:24 15:24 15:24 WBC 7.2 (4.8-10.8) X10*3/uL RBC 4.35 L (4.60-5.80) X10*6/uL Hgb 13.6 L (14.0-18.0) g/dl Hct 39.4 L (42.0-52.0) % MCV 90.6 (80.0-98.0) fL MCH 31.3 (27.0-33.0) pg MCHC 34.5 (31.0-36.0) g/dl RDW 15.0 (11.0-16.0) % Plt Count 147 L D (160-400) X10*3/uL MPV 11.8 (9.4-12.4) fL Immature Gran % (Auto) 0.4 (0.0-0.4) % Neut % (Auto) 72.2 (45-73) % Lymph % (Auto) 16.0 L (20-40) % [place] % (Auto) 10.5 (2-11) % Eos % (Auto) 0.3 (0-4) % Baso % (Auto) 0.6 (0-2) % Lymph # (Auto) 1.2 (1.2-4.9) X10*3/uL [place] # (Auto) 0.8 (0.1-1.2) X10*3/uL Eos # (Auto) 0.0 (0.0-0.4) X10*3/uL Baso # (Auto) 0.0 (0.0-0.2) X10*3/uL Abs Immat Gran (auto) 0.03 (0.00-0.03) X10*3/uL Absolute Neuts (auto) 5.2 (2.0-8.3) x10*3/uL Absolute Nucleated RBC 0.000 (0.0-0.012) X10*3/uL Nucleated RBC % (auto) 0.0 (0.0-0.2) /100WBC Sodium 140 (135-145) mmol/L Potassium 3.3 (3.3-5.1) mmol/L Chloride 105 (96-108) mmol/L Carbon Dioxide 24 (22-29) mmol/L Anion Gap 14 (12-20) BUN 10 (9-16) mg/dL Creatinine 0.69 (0.5-1.4) mg/dL Estim Creat Clear Calc 85.4 Estimated GFR > 60 Random Glucose 123 H (60-115) mg/dL Uric Acid 10.4 H (3.4-7.0) mg/dL Calcium 9.2 (8.4-10.2) mg/dL Magnesium 1.8 (1.6-2.6) mg/dL Total Bilirubin 0.5 0.6 (0.0-1.0) mg/dL Direct Bilirubin 0.3 (0.0-0.5) mg/dL AST 23 23 (5-37) U/L ALT 15 (0-40) U/L Alkaline Phosphatase (39-117) U/L Total Protein (6.5-8.0) g/dL Albumin (3.5-5.0) g/dL Lipase (8-78) U/L 08/21/23 08/21/23 08/21/23 Range/Units 15:24 15:24 15:24 WBC (4.8-10.8) X10*3/uL RBC (4.60-5.80) X10*6/uL Hgb (14.0-18.0) g/dl Hct (42.0-52.0) % MCV (80.0-98.0) fL MCH (27.0-33.0) pg MCHC (31.0-36.0) g/dl RDW (11.0-16.0) % Plt Count (160-400) X10*3/uL MPV (9.4-12.4) fL Immature Gran % (Auto) (0.0-0.4) % Neut % (Auto) (45-73) % Lymph % (Auto) (20-40) % [place] % (Auto) (2-11) % Eos % (Auto) (0-4) % Baso % (Auto) (0-2) % Lymph # (Auto) (1.2-4.9) X10*3/uL [place] # (Auto) (0.1-1.2) X10*3/uL Eos # (Auto) (0.0-0.4) X10*3/uL Baso # (Auto) (0.0-0.2) X10*3/uL Abs Immat Gran (auto) (0.00-0.03) X10*3/uL Absolute Neuts (auto) (2.0-8.3) x10*3/uL Absolute Nucleated RBC (0.0-0.012) X10*3/uL Nucleated RBC % (auto) (0.0-0.2) /100WBC Sodium (135-145) mmol/L Potassium (3.3-5.1) mmol/L Chloride (96-108) mmol/L Carbon Dioxide (22-29) mmol/L Anion Gap (12-20) BUN (9-16) mg/dL Creatinine (0.5-1.4) mg/dL Estim Creat Clear Calc Estimated GFR Random Glucose (60-115) mg/dL Uric Acid (3.4-7.0) mg/dL Calcium (8.4-10.2) mg/dL Magnesium (1.6-2.6) mg/dL Total Bilirubin (0.0-1.0) mg/dL Direct Bilirubin (0.0-0.5) mg/dL AST (5-37) U/L ALT 15 (0-40) U/L Alkaline Phosphatase 67 65 (39-117) U/L Total Protein 6.7 6.7 (6.5-8.0) g/dL Albumin 4.0 (3.5-5.0) g/dL Lipase (8-78) U/L 08/21/23 Range/Units 15:24 WBC (4.8-10.8) X10*3/uL RBC (4.60-5.80) X10*6/uL Hgb (14.0-18.0) g/dl Hct (42.0-52.0) % MCV (80.0-98.0) fL MCH (27.0-33.0) pg MCHC (31.0-36.0) g/dl RDW (11.0-16.0) % Plt Count (160-400) X10*3/uL MPV (9.4-12.4) fL Immature Gran % (Auto) (0.0-0.4) % Neut % (Auto) (45-73) % Lymph % (Auto) (20-40) % [place] % (Auto) (2-11) % Eos % (Auto) (0-4) % Baso % (Auto) (0-2) % Lymph # (Auto) (1.2-4.9) X10*3/uL [place] # (Auto) (0.1-1.2) X10*3/uL Eos # (Auto) (0.0-0.4) X10*3/uL Baso # (Auto) (0.0-0.2) X10*3/uL Abs Immat Gran (auto) (0.00-0.03) X10*3/uL Absolute Neuts (auto) (2.0-8.3) x10*3/uL Absolute Nucleated RBC (0.0-0.012) X10*3/uL Nucleated RBC % (auto) (0.0-0.2) /100WBC Sodium (135-145) mmol/L Potassium (3.3-5.1) mmol/L Chloride (96-108) mmol/L Carbon Dioxide (22-29) mmol/L Anion Gap (12-20) BUN (9-16) mg/dL Creatinine (0.5-1.4) mg/dL Estim Creat Clear Calc Estimated GFR Random Glucose (60-115) mg/dL Uric Acid (3.4-7.0) mg/dL Calcium (8.4-10.2) mg/dL Magnesium (1.6-2.6) mg/dL Total Bilirubin (0.0-1.0) mg/dL Direct Bilirubin (0.0-0.5) mg/dL AST (5-37) U/L ALT (0-40) U/L Alkaline Phosphatase (39-117) U/L Total Protein (6.5-8.0) g/dL Albumin 3.9 (3.5-5.0) g/dL Lipase 14 (8-78) U/L Discharge Plan Discharge Clinical Impression: Effusion of knee joint, left Patient Disposition: Home, Self-Care Instructions: R.I.C.E. Treatment (ED), Swollen Joint (ED) Additional Instructions: Your seen in the emergency department for concerns of a swollen knee. Your Xray showed fluid on the knee called a joint effusion. An MICHAEL wrap was applied and you were given Tylenol and Ibuprofen here in the Emergency Department. You may continue these medications at home. You are safe for discharge at this time with plan for management of fever or discomfort with [id number] Tylenol and/or NSAID such as ibuprofen or naproxen with dosing as per packaging. Please return to the emergency department with new, worsening, or concerning emergent symptoms. Recommended to follow-up with your primary care provider in 24-48 hours for further treatment and management. Thank you for choosing [facility]. Prescriptions: No Action acetaminophen [Tylenol] 325 mg capsule 650 mg PO Q4H PRN (Reason: pain) Qty: 30 0RF prednisone 50 mg tablet 50 mg PO DAILY 5 Days Qty: 5 0RF magnesium oxide 250 mg magnesium tablet 250 mg PO DAILY amlodipine 10 mg tablet 10 mg PO DAILY Referrals: [facility] [place] [facility] [Provider Group] Yaneth Soto MD [Primary Care Provider] - Interventions: ED Discharge Assessment Last Done: 08/21/23 18:18 Discharge Date/Time: 08/21/23 18:19 Print Language: Icelandic
== END 2023-08-21 18:19 | disposition home or self-care (01) ==
PROVIDERS: Emergency Provider Student in an Organized Health Care Education/Training Program; PCP Internal Medicine
DX: M25.462 Effusion, left knee (principal); M25.562 Pain in left knee; I10 Essential (primary) hypertension; Z79.899 Other long term (current) drug therapy
CPT/HCPCS: 36415; 73560; 80053; 80076; 82248; 83690; 83735; 84550; 85025; 99283; 99284

== ENCOUNTER 2023-09-27 08:54 | Emergency (ER) | payer MEDICARE, SELFPAY ==
--- NOTE | ~2023-09-27 | CT_ITS ---
EXAMINATION: CT ABDOMEN AND PELVIS WITHOUT CONTRAST CLINICAL INFORMATION: Left flank pain and hematuria COMPARISON: None available. TECHNIQUE: Multidetector volumetric imaging was performed from the superior aspect of the liver through the pubic symphysis. Sagittal and coronal reformatted images were obtained on the technologist's workstation. This CT examination was performed using dose optimization techniques as appropriate, variously including the following: *Automated exposure control *Adjustment of mA and/or kV according to patient size (this includes techniques or standardized protocols for targeted exams where dose is matched to indication/reason for exam; i.e. extremities or head) *Use of iterative reconstruction technique DLP: 495 mGy-cm FINDINGS: LUNG BASES: The visualized lung bases are unremarkable. There is a small hiatal hernia. The heart size is normal. LIVER, GALLBLADDER, AND BILIARY TREE: The liver is normal in size, shape, and attenuation. No focal hepatic lesion or biliary ductal dilatation is present. The gallbladder is unremarkable with no evidence of radiopaque gallstones, gallbladder wall thickening, or obvious pericholecystic inflammatory changes. PANCREAS: Unremarkable. SPLEEN: Unremarkable. ADRENAL GLANDS: Bilateral adrenal glands are symmetrical and normal. KIDNEYS AND URETERS: Both kidneys are normal size, shape and position. No radiopaque renal calculi or hydronephrosis seen. BLADDER: The bladder is nondistended and mild bladder thickening at the base.. GASTROINTESTINAL TRACT: There is scattered stool, diverticuli and gas seen in colon without distention. The small bowel loops are normal caliber. The stomach is nondistended. ABDOMINAL WALL: There is a small umbilical hernia containing fat.. LYMPH NODES: No abnormal size retroperitoneal lymph nodes or mass seen. VASCULAR: There is arthroscopic calcification of abdominal aorta without aneurysmal dilatation. PELVIC VISCERA: The prostate gland is normal size with central gland calcification. There are small shotty lymph nodes in the lingula. No abnormal pelvic lymph nodes seen. No evidence of inguinal hernia. Small shotty lymph nodes OSSEOUS STRUCTURES: Grade 1 anterolisthesis L5 over S1 and grade 1 retrolisthesis L2 over L3 is noted. There is mild loss of L1-L2, L2-L3 disc heights with ventral spondylosis. There is mild loss of L5-S1 disc height as well. No aggressive lytic or sclerotic process seen. CT/CT abdomen pelvis wo IV con IMPRESSION: No radiopaque urolith or hydroureteronephrosis. Mild constipation. Colonic diverticulosis without diverticulitis. Mild prostate enlargement with bulky central gland calcification Grade 1 anterolisthesis L5 over S1 and grade 1 retrolisthesis L2 over L3 with degenerative disc changes. Fleischner guidelines were followed.
[2023-09-27 08:59] VITALS: BP 148/89; PULSE 86; RESP 17; TEMP 36.7; O2SAT 97; BMI 31.0
--- NOTE | 2023-09-27 09:27 | ED.BACK ---
HPI - Back Pain/Injury General Chief Complaint: Back Pain/Injury Stated Complaint: Knee & back pain Time Seen by Provider: 09/27/23 09:11 Source: patient, family and RN notes reviewed Mode of arrival: ambulatory Limitations: no limitations History of Present Illness HPI Narrative: This is a 73-year-old male, with a history of hypertension, presenting to the emergency department with complaints of atraumatic back pain x4 days. Patient states that while he was asleep he awoke with back pain that started in the middle of the night. He states that since the onset of his symptoms his pain has only worsened. He states that the pain is primarily left-sided however occasionally radiates up into his back and his neck and down into his left thigh. He states that he had 2 days' worth of hematuria as well as urinary frequency and urgency. He states that the pain has caused him to have some lower extremity weakness. He denies any saddle anesthesia, urinary or bowel incontinence or retention. He denies any fevers, chills, chest pain, shortness on breath, dizziness, lightheadedness, abdominal pain, nausea, vomiting or diarrhea. No constipation. Denies history of similar symptoms in the past. No other complaints or concerns at this time. MD elicited complaint: back pain Pertinent past history: back surgery Onset (ago): day(s) Timing: constant Severity: moderate Similar Symptoms Previously: No Quality: aching Location: lumbar spine and left flank Radiation: left upper leg Exacerbating factors: movement Relieving factors: immobilization Associated symptoms: denies other symptoms Work related injury: No Related Data Home Medications Medication Instructions Recorded Confirmed amlodipine 10 mg tablet 10 mg PO DAILY 03/07/22 magnesium oxide 250 mg PO DAILY 03/07/22 Previous Rx's Medication Instructions Recorded acetaminophen 325 mg capsule 650 mg (2 x 325 mg) PO Q4H PRN 06/03/23 (Tylenol) pain #30 caps prednisone 50 mg tablet 50 mg PO DAILY 5 days #5 tabs 07/09/23 acetaminophen 500 mg tablet 500 mg PO Q6H PRN pain #30 tabs 09/27/23 (Tylenol Extra Strength) cyclobenzaprine 5 mg tablet 5 mg PO TID PRN muscle spasm #14 09/27/23 tabs lidocaine 5 % topical patch 1 patch topical DAILY #30 ea 09/27/23 (Lidoderm) prednisone 20 mg tablet 40 mg (2 x 20 mg) PO DAILY 4 days 09/27/23 #8 tabs Allergies Allergy/AdvReac Type Severity Reaction Status Date / Time No Known Allergies Allergy Verified 07/09/23 15:17 [No Known Allergies*] Review of Systems Review of Systems: Yes all other systems are reviewed and are negative Constitutional: Constitutional: Reports as per [facility] Past Medical History Medical History Hypertension Social History Social History Alcohol intake: current Alcohol intake frequency: holidays/special occasions only Alcohol type: beer Patient Tobacco Use Status: Former Tobacco user Smoked in Last 30 Days: No Use of substances other than those prescribed or required for medical reasons: No Advance Directives: No Advance Directives Information Provided: Yes Physical Exam Vital Signs: Vital Signs: Last Vital Signs Temp 98.4 F 09/27/23 14:51 Pulse 85 09/27/23 14:51 Resp 15 09/27/23 14:51 BP 144/89 H 09/27/23 14:51 Pulse Ox 94 09/27/23 14:51 O2 Del Method Room Air 09/27/23 14:51 BMI result Body Mass Index 31.0 Const: General: cooperative, comfortable and no acute distress Orientation/consciousness: patient oriented x3 Limitations: no limitations HEENT: Head: Yes normal to inspection, Yes normocephalic and Yes atraumatic Ears: hearing grossly normal bilaterally General nose exam: Normal external nose present Face and sinus: Yes normal facial exam Mouth: Normal oral and palatal mucosa present, oropharynx normal and moist mucous membranes Throat: Yes posterior oropharynx normal Eyes: General: appearance normal, both eyes and all related structures Eyelids: Yes eyelids normal Conjunctivae: conjunctivae normal Sclerae: sclerae normal Pupils: Equal, round and reactive pupils present EOM: EOMs intact bilaterally Neck: Other: No C-spine tenderness Neck: Yes normal visual inspection, Yes full ROM and Yes no lymphadenopathy Lymphatic: no lymphadenopathy noted Chest: Chest palpation & inspection: normal inspection of the chest Resp: Effort & Inspection: normal respiratory effort and able to speak in complete sentences Auscultation: clear to auscultation bilaterally, no crackles, no rales, no rhonchi and no wheezes Cardio: Rate: regular rate Rhythm: regular rhythm Heart sounds: S1 normal heart sound present and S2 normal heart sound present GI: Inspection: Yes normal to inspection Back/Spine/Pelvis: Other: Positive CVA tenderness on the left. Tenderness palpation along the lumbar paraspinous muscles. No midline spine tenderness Distal sensation circulation intact. Positive straight leg raise bilaterally. Skin: General skin exam: no rashes or lesions noted Trauma: no lacerations or abrasions Wounds: no wounds Neuro: General: patient oriented x3 and moves all extremities Cranial nerves: Yes Equal, round and reactive pupils present Extrem: General: Yes normal to inspection Right upper extremity: normal to inspection Left upper extremity: normal to inspection Right lower extremity: normal to inspection Left lower extremity: normal to inspection Course Reevaluation(s) Reevaluation #1: Pt's potassium returns, 2.9. He was given potassium 40mEq PO. Pt's pain slightly improved with Tylenol, but still reporting pain, pt medicated with dose of muscle relaxants and toradol. CT pending. Reevaluation #2: CT scan returns, revealing no evidence of kidney stones. CT revealing constipation, diverticulosis, prostate enlargement. Also showing anterolisthesis L5 over S1 and grade 1 retrolisthesis L2 over L3 with degenerative changes. Discussed findings with patient and daughter at bedside. Symptoms consistent with lumbar radiculopathy and muscle spasm. He is ambulatory in the department. Given prednisone, lidoderm patches and tylenol. Given return precautions. Encouraged to f/u with PCP. Repeat Chemistry revealing improvement of potassium level. They understand and agree with plan. Pt stable for discharge. . Medications Administered Discontinued Medications Generic Name Dose Route Start Last Admin Trade Name Beatriz PRN Reason Stop Dose Admin Acetaminophen 650 mg 09/27/23 10:53 09/27/23 10:57 Acetaminophen 325 Mg Tablet PO 09/27/23 10:54 650 mg ONCE ONE Administration Cyclobenzaprine HCl 5 mg 09/27/23 12:40 09/27/23 12:54 Cyclobenzaprine Hcl 5 Mg Tablet PO 09/27/23 12:41 5 mg ONCE ONE Administration Potassium Chloride 40 meq 09/27/23 10:48 09/27/23 10:58 Potassium Chloride Er 20 Meq Tab.Er.Prt PO 09/27/23 10:49 40 meq ONCE ONE Administration Prednisone 40 mg 09/27/23 12:40 09/27/23 12:54 Prednisone 20 Mg Tablet PO 09/27/23 12:41 40 mg ONCE ONE Administration Medical Decision Making Medical Decision Making [facility] Narrative: This is a 73-year-old male, with a history of hypertension, presenting to the emergency department with complaints of left-sided flank pain, and back pain x4 days. No tremor injury to his back states that he woke up in the middle of the night with back pain. He also reports that he had 2 days' worth of hematuria. On arrival blood pressure mildly elevated at 140 8/89, he has no chest pain or shortness of breath. Physical exam findings revealing positive CVA tenderness. Differential diagnoses include nephrolithiasis, obstructive uropathy, acute cystitis, musculoskeletal spasm / strain versus sciatica.No back pain red flags on history or physical. Presentation not consistent with malignancy (lack of history of malignancy, lack of B symptoms), fracture (no trauma, no bony tenderness to palpation), cauda equina syndrome (no bowel or urinary incontinence/retention, no saddle anesthesia, no distal weakness). Plan: Given hematuria as well as positive CVA tenderness, will obtain labs, UA, and CT abdomen Differential Diagnosis Differential Diagnoses: The differential diagnosis associated with the presentation includes See above Admission/Observation Consideration of admission/observation: Escalation of care including admission/observation considered Escalation of care including admission/observation considered however given workup today not warranted at this time. Lab Data MDM Lab Attestation statement: I reviewed the patient's lab results. No leukocytosis, no anemia, stable H&H, creatinine within normal limits. Urine does not appear to be infected. 09/27/23 09:37 09/27/23 12:46 Labs: Lab Results 09/27/23 09/27/23 09/27/23 Range/Units 09:37 09:49 12:46 WBC 7.6 (4.8-10.8) X10*3/uL RBC 4.98 (4.60-5.80) X10*6/uL Hgb 15.1 (14.0-18.0) g/dl Hct 44.6 (42.0-52.0) % MCV 89.6 (80.0-98.0) fL MCH 30.3 (27.0-33.0) pg MCHC 33.9 (31.0-36.0) g/dl RDW 14.0 (11.0-16.0) % Plt Count 168 (160-400) X10*3/uL MPV 11.5 (9.4-12.4) fL Immature Gran % (Auto) 0.1 (0.0-0.4) % Neut % (Auto) 69.1 (45-73) % Lymph % (Auto) 18.5 L (20-40) % [place] % (Auto) 10.8 (2-11) % Eos % (Auto) 1.1 (0-4) % Baso % (Auto) 0.4 (0-2) % Lymph # (Auto) 1.4 (1.2-4.9) X10*3/uL [place] # (Auto) 0.8 (0.1-1.2) X10*3/uL Eos # (Auto) 0.1 (0.0-0.4) X10*3/uL Baso # (Auto) 0.0 (0.0-0.2) X10*3/uL Abs Immat Gran (auto) 0.01 (0.00-0.03) X10*3/uL Absolute Neuts (auto) 5.3 (2.0-8.3) x10*3/uL Absolute Nucleated RBC 0.000 (0.0-0.012) X10*3/uL Nucleated RBC % (auto) 0.0 (0.0-0.2) /100WBC Sodium 144 143 (135-145) mmol/L Potassium 2.9 L* 3.3 (3.3-5.1) mmol/L Chloride 105 105 (96-108) mmol/L Carbon Dioxide 28 25 (22-29) mmol/L Anion Gap 14 16 (12-20) BUN 13 12 (9-16) mg/dL Creatinine 0.71 0.68 (0.5-1.4) mg/dL Estim Creat Clear Calc 80.1 83.6 Estimated GFR > 60 > 60 Random Glucose 120 H 119 H (60-115) mg/dL Calcium 9.9 D 9.6 (8.4-10.2) mg/dL Total Bilirubin 0.5 (0.0-1.0) mg/dL Direct Bilirubin 0.3 (0.0-0.5) mg/dL AST 33 (5-37) U/L ALT 25 (0-40) U/L Alkaline Phosphatase 62 (39-117) U/L Total Protein 7.8 (6.5-8.0) g/dL Albumin 4.6 (3.5-5.0) g/dL Urine Color Yellow Urine Appearance Clear Urine pH 6.0 (5.0-9.0) Ur Specific [place] 1.010 (1.005-1.025) Urine Protein Negative (Neg-Trace) mg/dL Urine Glucose (UA) Negative (Negative) mg/dL Urine Ketones Negative (Negative) mg/dL Urine Blood Negative (Negative) Urine Nitrite Negative (Negative) Ur Leukocyte Esterase Negative (Negative) Independent Interpretation I performed an independent interpretation of an: EKG Interpretation: EKG NSR with a vetricular rate of 83BPM, RI 146, QTC 455, no st elevation or depression. RBBB seen, similar to previous EKG. Radiology Impression Discussion of test interpretation with radiology: I have reviewed the radiologist's reading. Radiologist Impression: CT/CT abdomen pelvis wo IV con IMPRESSION: No radiopaque urolith or hydroureteronephrosis. Mild constipation. Colonic diverticulosis without diverticulitis. Mild prostate enlargement with bulky central gland calcification Grade 1 anterolisthesis L5 over S1 and grade 1 retrolisthesis L2 over L3 with degenerative disc changes. Fleischner guidelines were followed. Independent Historian Clinical information obtained from an independent historian. History obtained from or confirmed by: Other (Daughter) Discharge Plan Discharge Clinical Impression: Back pain, Acute lumbar radiculopathy, Hypokalemia Patient Disposition: Home, Self-Care Instructions: Lumbar Radiculopathy (ED), Back Pain (ED) Additional Instructions: You were seen in the emergency department due to back pain. Your CT scan does not show any evidence of kidney stones. You do have mild constipation, enlarged prostate as well as degenerative changes seen in your back. Please take prescribed medication as directed. You were given your 1st dose of prednisone in the emergency department today. Please start this tomorrow. Continue taking muscle relaxant, take 3 times a day as needed, please be advised that this can cause drowsiness. Gentle stretching, massage, heat or ice can also help. Use Lidoderm derm patches as needed for pain and symptoms. Follow-up with his primary care physician as a referral to physical therapy is likely warranted. If any new or worsening symptoms occur including but not limited to worsening pain, chest pain, shortness for breath, numbness, tingling or weakness, please return for re-evaluation. Prescriptions: New prednisone 20 mg tablet 40 mg PO DAILY 4 Days Qty: 8 0RF Rx Instructions: Start 09/28/2023 cyclobenzaprine 5 mg tablet 5 mg PO TID PRN (Reason: muscle spasm) Qty: 14 0RF acetaminophen [Tylenol Extra Strength] 500 mg tablet 500 mg PO Q6H PRN (Reason: pain) Qty: 30 0RF lidocaine [Lidoderm] 5 % adhesive patch,medicated 1 patch topical DAILY Qty: 30 0RF Rx Instructions: leave on most painful area for up to 12 hrs No Action acetaminophen [Tylenol] 325 mg capsule 650 mg PO Q4H PRN (Reason: pain) Qty: 30 0RF prednisone 50 mg tablet 50 mg PO DAILY 5 Days Qty: 5 0RF magnesium oxide 250 mg magnesium tablet 250 mg PO DAILY amlodipine 10 mg tablet 10 mg PO DAILY Interventions: ED Discharge Assessment Last Done: 09/27/23 15:03 Discharge Date/Time: 09/27/23 15:00
[2023-09-27 09:41] LABS: MANUAL DIFF FLAG NO
[2023-09-27 09:44] LABS: Basophils Percent Auto 0.4 % (0-2); Eosinophils Absolute Auto 0.1 X10*3/uL (0.0-0.4); Eosinophils Percent Auto 1.1 % (0-4); Hematocrit 44.6 % (42.0-52.0); Hemoglobin 15.1 g/dl (14.0-18.0); Imm Gran Abs Auto 0.01 X10*3/uL (0.00-0.03); Imm Gran Pct Auto 0.1 % (0.0-0.4); Lymphocytes Absolute Auto 1.4 X10*3/uL (1.2-4.9); Lymphocytes Percent Auto 18.5 % (20-40); Mean Corpuscular HGB Conc 33.9 g/dl (31.0-36.0); Mean Corpuscular Hemoglobin 30.3 pg (27.0-33.0); Mean Corpuscular Volume 89.6 fL (80.0-98.0); Mean Platelet Volume 11.5 fL (9.4-12.4); Monocytes Absolute Auto 0.8 X10*3/uL (0.1-1.2); Monocytes Percent Auto 10.8 % (2-11); Neutrophils Absolute Auto 5.3 x10*3/uL (2.0-8.3); Neutrophils Percent Auto 69.1 % (45-73); Platelet Count 168 X10*3/uL (160-400); Red Blood Count 4.98 X10*6/uL (4.60-5.80); White Blood Count 7.6 X10*3/uL (4.8-10.8)
[2023-09-27 09:55] LABS: Appearance Urine Clear; Color Urine Yellow; Glucose Urine UA Negative (Negative); Leukocyte Esterase Urine Negative (Negative); Nitrite Urine Negative (Negative); Urine Blood Negative (Negative); Urine Ketones Negative (Negative); Urine Protein Negative (Neg-Trace)
--- NOTE | 2023-09-27 10:07 | ECG_ITS ---
Test Reason : hypokalemia Blood Pressure : / mmHG Vent. Rate : 083 BPM Atrial Rate : 083 BPM P-R Int : 146 ms QRS Dur : 136 ms QT Int : 388 ms P-R-T Axes : 042 -09 -20 degrees QTc Int : 455 ms Normal sinus rhythm Right bundle branch block Septal infarct , age undetermined Abnormal ECG When compared with ECG of 03-JAN-2022 11:52, Septal infarct is now Present T wave inversion now evident in Anterior leads Referred By: Jazmine Peterson Electronically Signed By:Henry Hanson
[2023-09-27 10:08] LABS: Alanine Aminotransferase 25 U/L (0-40); Albumin Level 4.6 g/dL (3.5-5.0); Alkaline Phosphatase 62 U/L (39-117); Anion Gap 14 (12-20); Aspartate Amino Transferase 33 U/L (5-37); Bilirubin Direct 0.3 mg/dL (0.0-0.5); Bilirubin Total 0.5 mg/dL (0.0-1.0); Blood Urea Nitrogen 13 mg/dL (9-16); Calcium 9.9 mg/dL (8.4-10.2); Carbon Dioxide 28 mmol/L (22-29); Chloride 105 mmol/L (96-108); Creatinine Clr Calc Pharmacy 80.1; Estimated Glomerular Filt Rate > 60; Glucose Random 120 mg/dL (60-115); Potassium 2.9 mmol/L (3.3-5.1); Sodium 144 mmol/L (135-145); Total Protein 7.8 g/dL (6.5-8.0)
--- NOTE | 2023-09-27 10:36 | PC.NURSE ---
plaed on tele. no distress. no cp/sob.
[2023-09-27 10:37] VITALS: BP 149/87; PULSE 84; RESP 20; TEMP 36.4; O2SAT 97
[2023-09-27] MEDS: Acetaminophen 325 MG TABLET 650 MG PO (10:57)
[2023-09-27] MEDS: Potassium Chloride ER 20 MEQ TAB.ER.PRT 40 MEQ PO (10:58)
[2023-09-27 12:30] VITALS: BP 152/97; PULSE 89; RESP 20; TEMP 36.4; O2SAT 95
[2023-09-27] MEDS: Cyclobenzaprine HCl 5 MG TABLET PO (12:54)
[2023-09-27] MEDS: predniSONE 20 MG TABLET 40 MG PO (12:54)
[2023-09-27 13:10] LABS: Anion Gap 16 (12-20); Blood Urea Nitrogen 12 mg/dL (9-16); Calcium 9.6 mg/dL (8.4-10.2); Carbon Dioxide 25 mmol/L (22-29); Chloride 105 mmol/L (96-108); Creatinine Clr Calc Pharmacy 83.6; Estimated Glomerular Filt Rate > 60; Glucose Random 119 mg/dL (60-115); Potassium 3.3 mmol/L (3.3-5.1); Sodium 143 mmol/L (135-145)
[2023-09-27 14:51] VITALS: BP 144/89; PULSE 85; RESP 15; TEMP 36.9; O2SAT 94
== END 2023-09-27 15:00 | disposition home or self-care (01) ==
PROVIDERS: Physician Assistant Medical; Emergency Provider Emergency Medicine; PCP Internal Medicine
DX: M54.16 Radiculopathy, lumbar region (principal); E87.6 Hypokalemia; R31.9 Hematuria, unspecified; I10 Essential (primary) hypertension
CPT/HCPCS: 36415; 74176; 80048; 80076; 81003; 85025; 93005; 99284; 99285

== ENCOUNTER → 2023-09-27 10:07 | Outpatient (BNV) | payer MEDICARE, SELFPAY | PROVIDERS: Emergency Provider Emergency Medicine; PCP Internal Medicine; Visit Provider Internal Medicine Cardiovascular Disease | DX: I45.10 Unspecified right bundle-branch block (principal) | CPT/HCPCS: 93010 ==

== ENCOUNTER 2023-10-08 14:09 | Emergency (ER) | payer MEDICARE, SELFPAY ==
--- NOTE | ~2023-10-08 | XR_ITS ---
EXAMINATION: XR HIP, LEFT CLINICAL INFORMATION: Pain COMPARISON: CT abdomen pelvis September 27, 2023 TECHNIQUE: Two views of the left hip. FINDINGS: Visualized portion of proximal left femur demonstrate no fracture. Left from head is well-seated within the acetabulum. There is mild to moderate narrowing of the left femoral acetabular joint space. Mild degenerative changes of the included visualized right hip. Sacroiliac joints are symmetric. Coarse calcifications within the midline pelvis are prostatic in nature. XR/XR hip LT w PEL1V IMPRESSION: Mild degenerative changes of the left hip without fracture or dislocation.
[2023-10-08 14:31] VITALS: BP 121/94; PULSE 107; RESP 18; TEMP 37; O2SAT 96; BMI 37.0
--- NOTE | 2023-10-08 14:31 | ED_ITS ---
HPI - General Adult General Chief complaint: Back Pain/Injury Stated complaint: L Side Hip & L Pain Time Seen by Provider: 10/08/23 16:15 Source: patient, RN notes reviewed and freelance interpreter/translator Mode of arrival: ambulatory Limitations: language barrier History of Present Illness HPI narrative: This is a 73-year-old Australian-speaking presenting to the emergency department with complaints of acute on chronic left hip pain. He denies any recent trauma, injury, heavy lifting or falls. He states that he has a history of left hip pain and was scheduled to follow-up with pain management last week however states that he had medication that he was taking home which provided him with some relief. He was seen in the emergency room for back pain several weeks ago. He states that this pain is slightly different. He denies any fevers, chills, chest pain, shortness breast, abdominal pain, nausea, vomiting or diarrhea. No urinary symptoms. He only has 1 more tablet of Tylenol left at home. No other complaints or concerns at this time. MD complaint: Left hip pain Onset (ago): week(s) Radiation: non-radiation Severity: moderate Quality: aching Pain Consistency: constant Relieving factors: none Exacerbating factors: none Associated symptoms: denies other symptoms Treatments prior to arrival: none Related Data Home Medications Medication Instructions Recorded Confirmed amlodipine 10 mg tablet 10 mg PO DAILY 03/07/22 magnesium oxide 250 mg PO DAILY 03/07/22 Previous Rx's Medication Instructions Recorded acetaminophen 325 mg capsule 650 mg (2 x 325 mg) PO Q4H PRN 06/03/23 (Tylenol) pain #30 caps prednisone 50 mg tablet 50 mg PO DAILY 5 days #5 tabs 07/09/23 acetaminophen 500 mg tablet 500 mg PO Q6H PRN pain #30 tabs 09/27/23 (Tylenol Extra Strength) cyclobenzaprine 5 mg tablet 5 mg PO TID PRN muscle spasm #14 09/27/23 tabs lidocaine 5 % topical patch 1 patch topical DAILY #30 ea 09/27/23 (Lidoderm) prednisone 20 mg tablet 40 mg (2 x 20 mg) PO DAILY 4 days 09/27/23 #8 tabs acetaminophen 650 mg 650 mg PO Q8H PRN pain #30 tabs 10/08/23 tablet,extended release (Tylenol 8 Hour) Allergies Allergy/AdvReac Type Severity Reaction Status Date / Time No Known Allergies Allergy Verified 10/08/23 14:35 [No Known Allergies*] Review of Systems Review of Systems: Yes all other systems are reviewed and are negative Constitutional: Constitutional: Reports as per [facility] Past Medical History Medical History Hypertension Social History Social History Alcohol intake: current Alcohol intake frequency: holidays/special occasions only Alcohol type: beer Patient Tobacco Use Status: Former Tobacco user Advance Directives: No Advance Directives Information Provided: No Physical Exam ED Vital Signs: Vital Signs - 24 hr 10/08/23 14:31 10/08/23 16:17 Temperature 98.6 F 98.6 F Pulse Rate 107 H 97 Respiratory Rate 18 20 Blood Pressure 121/94 H 129/83 Pulse Oximetry 96 97 Oxygen Delivery Method Room Air Room Air BMI result Body Mass Index 37.0 Const General: cooperative, comfortable and no acute distress Orientation/consciousness: patient oriented x3 Limitations: no limitations HENMT Head: Yes normal to inspection, Yes normocephalic and Yes atraumatic Ears: hearing grossly normal bilaterally General nose exam: Normal external nose present Face and sinus: Yes normal facial exam Mouth: Normal oral and palatal mucosa present, oropharynx normal and moist mucous membranes Throat: Yes posterior oropharynx normal Eyes General: appearance normal, both eyes and all related structures Eyelids: Yes eyelids normal Conjunctivae: conjunctivae normal Sclerae: sclerae normal Pupils: Equal, round and reactive pupils present EOM: EOMs intact bilaterally Neck Neck: Yes normal visual inspection, Yes full ROM and Yes no lymphadenopathy Lymphatic: no lymphadenopathy noted Chest Chest palpation & inspection: normal inspection of the chest Resp Effort & Inspection: normal respiratory effort and able to speak in complete sentences Auscultation: clear to auscultation bilaterally, no crackles, no rales, no rhonchi and no wheezes Cardio Rate: regular rate Rhythm: regular rhythm Heart sounds: S1 normal heart sound present and S2 normal heart sound present GI Inspection: Yes normal to inspection Back/Spine/Pelvis Other: No midline spine tenderness. Tenderness palpation along the left posterior hip. No overlying skin changes or warmth. No swelling appreciated. Skin General skin exam: no rashes or lesions noted Trauma: no lacerations or abrasions Wounds: no wounds Neuro General: patient oriented x3 and moves all extremities Cranial nerves: Yes Equal, round and reactive pupils present Extrem General: Yes normal to inspection Right upper extremity: normal to inspection Left upper extremity: normal to inspection Right lower extremity: normal to inspection Left lower extremity: normal to inspection Course Course Course Narrative: This is an RME: Additional HPI, ROS, PE not included below will be deferred to primary provider. This is a male, with a history of hypertension, presenting to the emergency department with complaints of left hip pain x 2 weeks. No trauma or injury. Was seen here several weeks ago with back pain. He states that this back pain/hip pain is similar. States that the medications we discharged him with last time helped. He denies any urinary symptoms. No weakness numbness or tingling. No fevers or chills. Has an appointment with his arthritic doctor on . Plan: X-ray left hip Medications Administered Discontinued Medications Generic Name Dose Route Start Last Admin Trade Name Freq PRN Reason Stop Dose Admin Acetaminophen 650 mg 10/08/23 16:22 10/08/23 16:26 Acetaminophen 325 Mg Tablet PO 10/08/23 16:23 650 mg ONCE ONE Administration Medical Decision Making Medical Decision Making [facility] Narrative: This is a 73-year-old Australian-speaking male presenting to the emergency department with complaints of acute on chronic left hip pain. On arrival, vital signs within normal limits. Left hip with tenderness palpation along the posterior hip without any overlying skin changes or warmth. Differential diagnoses include osteoarthritis, chronic hip pain, muscle spasm. Less likely UTI, pyelonephritis, obstructive uropathy. Patient was seen here several weeks ago with back pain. Patient has no urinary symptoms, he has a febrile, no other constitutional symptoms other than left hip pain. X-ray of the left hip was obtained revealing mild degenerative changes. I discussed this with patient with freelance interpreter/translator at bedside. Discussed return precautions. Discharged on Tylenol. He has an appointment with arthritis doctor on . He will follow-up with them. Patient given return precautions. He understands agrees with plan. Patient stable for discharge. Differential Diagnosis Differential Diagnoses: The differential diagnosis associated with the presentation includes See above Admission/Observation Consideration of admission/observation: Escalation of care including admission/observation considered Radiology Impression Discussion of test interpretation with radiology: I have reviewed the radiologist's reading. Radiologist Impression: EXAMINATION: XR HIP, LEFT CLINICAL INFORMATION: Pain COMPARISON: CT abdomen pelvis September 27, 2023 TECHNIQUE: Two views of the left hip. FINDINGS: Visualized portion of proximal left femur demonstrate no fracture. Left from head is well-seated within the acetabulum. There is mild to moderate narrowing of the left femoral acetabular joint space. Mild degenerative changes of the included visualized right hip. Sacroiliac joints are symmetric. Coarse calcifications within the midline pelvis are prostatic in nature. XR/XR hip LT w PEL1V IMPRESSION: Mild degenerative changes of the left hip without fracture or dislocation. Dictated By: Xavier Orantes MD Discharge Plan Discharge Clinical Impression: Hip pain, left Patient Disposition: Home, Self-Care Instructions: Arthralgia (ED), Hip Pain (ED) Additional Instructions: You were seen in the emergency department due to left hip pain. Your x-ray reveals osteoarthritis. Please follow-up with arthritis doctor on as scheduled. Take Tylenol as directed as needed for pain. If any new or worsening symptoms occur including but not limited to worsening pain, chest pain, shortness of breath, please return for re-evaluation. Prescriptions: New acetaminophen [Tylenol 8 Hour] 650 mg tablet extended release 650 mg PO Q8H PRN (Reason: pain) Qty: 30 0RF No Action acetaminophen [Tylenol] 325 mg capsule 650 mg PO Q4H PRN (Reason: pain) Qty: 30 0RF prednisone 20 mg tablet 40 mg PO DAILY 4 Days Qty: 8 0RF Rx Instructions: Start 09/28/2023 cyclobenzaprine 5 mg tablet 5 mg PO TID PRN (Reason: muscle spasm) Qty: 14 0RF acetaminophen [Tylenol Extra Strength] 500 mg tablet 500 mg PO Q6H PRN (Reason: pain) Qty: 30 0RF lidocaine [Lidoderm] 5 % adhesive patch,medicated 1 patch topical DAILY Qty: 30 0RF Rx Instructions: leave on most painful area for up to 12 hrs prednisone 50 mg tablet 50 mg PO DAILY 5 Days Qty: 5 0RF magnesium oxide 250 mg magnesium tablet 250 mg PO DAILY amlodipine 10 mg tablet 10 mg PO DAILY Interventions: ED Discharge Assessment Last Done: 10/08/23 16:28 Print Language: Australian
[2023-10-08 16:17] VITALS: BP 129/83; PULSE 97; RESP 20; TEMP 37; O2SAT 97
[2023-10-08] MEDS: Acetaminophen 325 MG TABLET 650 MG PO (16:26)
[2023-10-08 16:28] VITALS: BP 129/83; PULSE 97; RESP 18; TEMP 37; O2SAT 97
== END 2023-10-08 16:30 | disposition home or self-care (01) ==
LOC: HO.ED 16:26
PROVIDERS: Emergency Provider Internal Medicine; PCP Internal Medicine
DX: M25.552 Pain in left hip (principal); Z87.891 Personal history of nicotine dependence; Z79.899 Other long term (current) drug therapy
CPT/HCPCS: 73502; 99283

== ENCOUNTER 2023-12-29 07:03 | Emergency (ER) | payer MEDICARE, SELFPAY ==
--- NOTE | ~2023-12-29 | CT_ITS ---
EXAMINATION: CT HEAD WITHOUT CONTRAST CLINICAL INFORMATION: Left-sided pain COMPARISON: CT head from 01/03/2023 TECHNIQUE: Contiguous axial imaging was performed from the skull base to vertex without intravenous administration of contrast. This CT examination was performed using dose optimization techniques as appropriate, variously including the following: *Automated exposure control *Adjustment of mA and/or kV according to patient size (this includes techniques or standardized protocols for targeted exams where dose is matched to indication/reason for exam; i.e. extremities or head) *Use of iterative reconstruction technique DLP: 607 mGy-cm FINDINGS: There is no evidence of acute intracranial hemorrhage or territorial infarction. Chronic white matter small vessel ischemic changes. Mild cerebral atrophy with commensurate ventricular changes. No abnormal mass effect or midline shift is seen. Robin to white matter differentiation is well preserved. No extra-axial fluid collections are identified. The ventricles are normal in size. There is no abnormal attenuation within the brain parenchyma. The osseous structures and soft tissues are normal. The mastoid air cells and visualized portions of the paranasal sinuses are well aerated. CT/CT cervical spine wo IV con IMPRESSION: 1. No acute intracranial pathology. 2. Chronic white matter small vessel ischemic changes. EXAMINATION: Noncontrast CT scan of the cervical spine. INDICATION: Fall COMPARISON: None. TECHNIQUE: Helical, multidetector axial images were obtained from the occiput to the upper thorax. Coronal and sagittal reformats of the cervical spine were provided for interpretation. DLP: 275.61 mGy-cm FINDINGS: No acute fractures or dislocations of the cervical spine are seen. Straightening with slight reversal of the normal cervical curvature centered at C4-C5. Slight levocurvature of the mid cervical spine. Multilevel degenerative changes. Anatomic alignment and positioning of the vertebral bodies and posterior elements is noted. The atlantoaxial joint and craniovertebral articulations are normal without evidence of subluxation. There is no prevertebral soft tissue swelling. The thyroid gland and visualized portions of the lung apices and mediastinum are unremarkable. IMPRESSION: 1. No acute visible fracture or dislocation. 2. Straightening with slight reversal of the normal cervical curvature centered at C4-C5. 3. Slight levocurvature of the mid cervical spine. 4. Multilevel degenerative changes.
[2023-12-29 07:09] VITALS: BP 152/87; PULSE 88; RESP 16; TEMP 36.6; O2SAT 94; BMI 32.9
--- NOTE | 2023-12-29 07:15 | ECG_ITS ---
Test Reason : DIZZINESS Blood Pressure : / mmHG Vent. Rate : 089 BPM Atrial Rate : 089 BPM P-R Int : 152 ms QRS Dur : 126 ms QT Int : 370 ms P-R-T Axes : 048 -16 002 degrees QTc Int : 450 ms Sinus rhythm with Premature atrial complexes Right bundle branch block Abnormal ECG When compared with ECG of 27-SEP-2023 10:17, Premature atrial complexes are now Present Criteria for Septal infarct are no longer Present Referred By: Generic ED Physician Electronically Signed By:STANISLAV CALZADA MD
[2023-12-29 07:43] LABS: MANUAL DIFF FLAG NO
[2023-12-29 07:45] LABS: Basophils Absolute Auto 0.1 X10*3/uL (0.0-0.2); Basophils Percent Auto 1.1 % (0-2); Eosinophils Absolute Auto 0.1 X10*3/uL (0.0-0.4); Hematocrit 41.1 % (42.0-52.0); Hemoglobin 13.9 g/dl (14.0-18.0); Imm Gran Abs Auto 0.01 X10*3/uL (0.00-0.03); Imm Gran Pct Auto 0.2 % (0.0-0.4); Lymphocytes Absolute Auto 1.7 X10*3/uL (1.2-4.9); Lymphocytes Percent Auto 35.5 % (20-40); Mean Corpuscular HGB Conc 33.8 g/dl (31.0-36.0); Mean Corpuscular Hemoglobin 31.4 pg (27.0-33.0); Mean Platelet Volume 11.7 fL (9.4-12.4); Monocytes Absolute Auto 0.5 X10*3/uL (0.1-1.2); Monocytes Percent Auto 10.5 % (2-11); Neutrophils Absolute Auto 2.3 x10*3/uL (2.0-8.3); Neutrophils Percent Auto 49.7 % (45-73); Platelet Count 162 X10*3/uL (160-400); Red Blood Count 4.42 X10*6/uL (4.60-5.80); Red Cell Distribution Width 15.6 % (11.0-16.0); White Blood Count 4.7 X10*3/uL (4.8-10.8)
[2023-12-29 08:11] LABS: Alanine Aminotransferase 17 U/L (0-40); Albumin Level 4.2 g/dL (3.5-5.0); Alkaline Phosphatase 59 U/L (39-117); Anion Gap 14 (12-20); Aspartate Amino Transferase 27 U/L (5-37); Bilirubin Total 0.6 mg/dL (0.0-1.0); Blood Urea Nitrogen 13 mg/dL (9-16); Calcium 9.7 mg/dL (8.4-10.2); Carbon Dioxide 26 mmol/L (22-29); Chloride 105 mmol/L (96-108); Creatinine Clr Calc Pharmacy 88.2; Estimated Glomerular Filt Rate > 60; Glucose Random 103 mg/dL (60-115); Potassium 3.5 mmol/L (3.3-5.1); Sodium 141 mmol/L (135-145)
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
[2023-12-29 09:38] LABS: Troponin-I High Sensitivity 7.2 ng/L (<3.5-35.0)
[2023-12-29] MEDS: Acetaminophen 325 MG TABLET 975 MG PO (10:30)
[2023-12-29 11:18] VITALS: BP 146/78; PULSE 88; RESP 18; TEMP 36.6; O2SAT 95
== END 2023-12-29 11:19 | disposition home or self-care (01) ==
PROVIDERS: Nurse Practitioner Family; Emergency Provider Emergency Medicine
DX: S06.0X0A Concussion without loss of consciousness, initial encounter (principal); I10 Essential (primary) hypertension; W06.XXXA Fall from bed, initial encounter; Y93.9 Activity, unspecified; Y92.9 Unspecified place or not applicable; Y99.9 Unspecified external cause status
CPT/HCPCS: 36415; 70450; 72125; 80053; 84484; 85025; 93005; 99284

== ENCOUNTER → 2023-12-29 07:15 | Outpatient (BNV) | payer MEDICARE, SELFPAY | PROVIDERS: Emergency Provider Emergency Medicine; Visit Provider Internal Medicine Cardiovascular Disease | DX: R42 Dizziness and giddiness (principal); I45.10 Unspecified right bundle-branch block; I49.1 Atrial premature depolarization | CPT/HCPCS: 93010 ==

== ENCOUNTER 2024-02-12 13:41 | Outpatient (AMB) | payer MEDICARE, SELFPAY ==
[2024-02-12 13:50] VITALS: BP 138/82; PULSE 98; TEMP 36.7; O2SAT 97; BMI 30.4
--- NOTE | 2024-02-12 13:50 | MHC.OFFWIV ---
Intake Vital Signs 02/12/24 13:50 Height 5 ft 2 in Weight 166 lb BMI 30.4 BP 138/82 Blood Pressure Location Lt brachial Position Sitting Pulse 98 Pulse Source Pulse Oximeter Temp 98.0 F Temp Source Temporal Artery Scan Pulse Oximetry (%) 97 Oxygen Delivery Method Room Air Intake Visit Reasons: EP lft ear blocked Intake Note: Ruslan is a 73 year old male who presents to the office today for his left ear being blocked. Patient Tobacco Use Status: Former Tobacco user Allergies No Known Allergies [No Known Allergies*] Allergy (Verified 02/12/24 13:51) HPI HPI Comments History of Present Illness Details Patient is a 73-year-old male complaining of a change in hearing in his left ear. He states he thinks it is blocked with wax. When he lays down on that side he noticed a wearing sound so he took some Q-tips and noticed there was a lot of wax but he did not want to dig to deep so he came in to see if we could take the wax out for him. He denies any fevers or headaches or jaw pain [facility] Medical History Hypertension Social History Alcohol intake: current Alcohol intake frequency: holidays/special occasions only Alcohol type: beer Patient Tobacco Use Status: Former Tobacco user Review of Systems Const All systems reviewed & are unremarkable except as noted in HPI and below Physical Exam Vital Signs: Last Vital Signs Temp 98.0 F 02/12/24 13:50 Pulse 98 02/12/24 13:50 BP 138/82 02/12/24 13:50 Pulse Ox 97 02/12/24 13:50 Oxygen Delivery Method Room Air 02/12/24 13:50 BMI result Body Mass Index 30.4 Const General: cooperative, healthy appearing, comfortable and no acute distress Orientation/consciousness: patient oriented x3 HEENT Head: Yes normal to inspection Ears: TM normal on the right, mastoids normal, Abnormal EAC present cerumen impaction on the left and unable to visualize TM (cerumen blockage) on the left General nose exam: Normal external nose present Face and sinus: Yes normal facial exam Resp Effort & Inspection: normal respiratory effort and able to speak in complete sentences Neuro General: patient oriented x3 Office Procedures Cerumen Removal From which ear canal was the cerumen removed: left Removal: irrigation Notes: patient tolerated procedure well, no complications and ear canal clear [id number] Irrigation/Lavage Assessment & Plan Assessment & Plan (1) Impacted cerumen of left ear: Code(s): H61.22 - Impacted cerumen, left ear Plan: MA irrigated left ear, cerumen is removed and ear canal is clear. Recommend patient use Debrox drops regularly in the future Plan See above Coding Level of Care Code New Pt Level 4 (60441) Diagnoses Impacted cerumen of left ear H61.22 CPT Codes Office Procedure - CPT: 17808-Rts Irrigation/Lavage ([id number])
== END 2024-02-12 14:18 | disposition home or self-care (01) ==
PROVIDERS: Visit Provider Physician Assistant
DX: H61.22 Impacted cerumen, left ear (principal)
CPT/HCPCS: 69209; 99203

== ENCOUNTER 2024-03-17 10:21 | Outpatient (AMB) | payer MEDICARE, SELFPAY ==
--- NOTE | 2024-03-17 10:23 | AM.OFFWIN_ITS ---
Intake Vital Signs 03/17/24 10:24 Height 5 ft 2 in Weight 164 lb BMI 30.0 BP 140/82 H Blood Pressure Location Lt brachial Position Sitting Pulse 68 Pulse Source Pulse Oximeter Temp 98.1 F Temp Source Oral Pulse Oximetry (%) 98 Oxygen Delivery Method Room Air Intake Visit Reasons: EP- LT foot pain Intake Note: pt c/o LT foot pain and swelling. Started Saturday. Patient Tobacco Use Status: Former Tobacco user Allergies No Known Allergies [No Known Allergies*] Allergy (Verified 03/17/24 10:23) Do you need a note to return to daycare/school/sports/work: No HPI HPI Comments History of Present Illness Details Patient is a 73-year-old Yakut-speaking male complaining of left foot pain and swelling for 3 days. He states the 2nd toe on his left foot is exquisitely painful when he touches it. It is difficult for him to walk. He states he has a history of gout on the right foot on his big toe. He states that he has had 2 gout flare ups on that foot in the past. He states he did increase his alcohol consumption a little bit recently. Interpretor services via iPad used for this visit [facility] Medical History Hypertension Social History Alcohol intake: current Alcohol intake frequency: holidays/special occasions only Alcohol type: beer Patient Tobacco Use Status: Former Tobacco user Review of Systems Const All systems reviewed & are unremarkable except as noted in HPI and below Physical Exam Vital Signs: Last Vital Signs Temp 98.1 F 03/17/24 10:24 Pulse 68 03/17/24 10:24 BP 140/82 H 03/17/24 10:24 Pulse Ox 98 03/17/24 10:24 Oxygen Delivery Method Room Air 03/17/24 10:24 BMI result Body Mass Index 30.0 Const General: cooperative, healthy appearing, comfortable, no acute distress and well developed Orientation/consciousness: patient oriented x3 Limitations: no limitations HEENT Head: Yes normal to inspection Ears: hearing grossly normal bilaterally General nose exam: Normal external nose present Face and sinus: Yes normal facial exam Eyes General: appearance normal, both eyes and all related structures Neck Neck: Yes normal visual inspection and Yes full ROM Resp Effort & Inspection: normal respiratory effort and able to speak in complete sentences Skin General skin exam: no rashes or lesions noted Neuro General: patient oriented x3 Extrem Left lower extremity: foot Details: tenderness Location: of another digit Location: the 2nd digit and along the entire digit, toes with normal ROM, edema Location: diffusely, vascular exam Details: normal capillary refill and motor- sensory exam Details: light-touch normal; no unusual warmth, no abrasions, no lacerations and no ecchymosis Assessment & Plan Assessment & Plan (1) Gout attack: Code(s): M10.9 - Gout, unspecified Qualifiers: Gout site: toe Gout etiology: other secondary cause Laterality: left Qualified Code(s): M10.472 - Other secondary gout, left ankle and foot Plan: Reviewed foods that will trigger a gout attack and foods that are better for person who has gout. Patient did admit he increased his alcohol consumption from 2 drinks a day to 4 drinks per day. We discussed him cutting back in half. We will send colchicine to pharmacy, if no improvement, he knows to follow up with his PCP Plan See above Medications: New colchicine On day 1, take 2 tablets followed by 1 tablet 1 hour later. Do not exceed 3 tablets in 24 hours. On day 2 and 3, take 1 tablet every 12 hours. 0.6 mg PO DAILY 7 tabs 0RF Coding Level of Care Code New Pt Level 3 (76755) Diagnoses Acute gout due to other secondary cause involving toe of left foot M10.472 Gout site: toe Gout etiology: other secondary cause Laterality: left
[2024-03-17 10:24] VITALS: BP 140/82; PULSE 68; TEMP 36.7; O2SAT 98
== END 2024-03-17 11:03 | disposition home or self-care (01) ==
PROVIDERS: PCP Internal Medicine; Visit Provider Physician Assistant
DX: M10.472 Other secondary gout, left ankle and foot (principal)
CPT/HCPCS: 99213

== ENCOUNTER 2024-03-24 13:55 | Outpatient (AMB) | payer MEDICARE, SELFPAY ==
--- NOTE | 2024-03-24 14:04 | MHC.OFFVIS ---
Intake Visit Reasons: Lower urinary tract symptoms Intake Note: Patient is present for LOWER URINARY TRACT SYMPTOMS Urology Medication:NONE Antibiotic Allergy:NONE Blood Thinner:NONE Alignment Technician Required: No Allergies No Known Allergies [No Known Allergies*] Allergy (Verified 04/14/24 10:20) HPI Comments Details: Ruslan is a pleasant male. He is a patient of Dr. Henderson. He is seen for the following urologic conditions - painful penis - inguinal groin pain Greek translation provided in office by qualified medical technologist chemistry Last seen in office 2 years ago Significant nocturia times 5-6 Discussed reducing fluids before bed Trial tadalafil for bladder stabilization Prior pain on right side consistent with inguinal disruption Reassurance provided [facility] Medical History Hypertension Social History Alcohol intake: current Alcohol intake frequency: holidays/special occasions only Alcohol type: beer Patient Tobacco Use Status: Former Tobacco user Advance Directives: No Advance Directives Information Provided: No Review of Systems Const Denies chills and Denies fever(s) Card Reports no additional complaints and Denies syncope Resp Denies cough GI Denies abdominal pain and Denies heartburn Reports as per HPI and Denies change in libido Neuro Denies syncope Psych Denies change in libido Endo Denies change in libido Physical Exam Const General: cooperative, healthy appearing, comfortable and no acute distress Orientation/consciousness: patient oriented x3 HEENT Face and sinus: Yes normal facial exam Mouth: moist mucous membranes Neck Neck: Yes normal visual inspection, Yes full ROM and Yes trachea midline Chest Chest palpation & inspection: normal inspection of the chest Resp Effort & Inspection: normal respiratory effort, able to speak in complete sentences and no respiratory distress GI Inspection: Yes normal to inspection Back/Spine/Pelvis Cervical Spine: normal cervical lordosis Thoracic/Lumbar Spine: thoracic and lumbar spine normal to inspection Skin General skin exam: no rashes or lesions noted Neuro General: patient oriented x3, gait normal, tone normal and moves all extremities Extrem General: Yes normal to inspection and Yes capillary refill normal Results AMB Urinalysis, Automated UA Leukoctes 0 Huyen/uL Last Edit by DEDE Singer on 03/24/24 14:21 UA Nitrite Negative Last Edit by DEDE Singer on 03/24/24 14:21 UA Urobilinogen 0.2 mg/dL Last Edit by DEDE Singer on 03/24/24 14:21 UA Protein 30 mg/dL Last Edit by DEDE Singer on 03/24/24 14:21 UA pH 6.0 Last Edit by DEDE Singer on 03/24/24 14:21 UA Blood 0 Alonso/uL Last Edit by DEDE Singer on 03/24/24 14:21 UA Specific Pruden 1.030 Last Edit by Alize Avila CCM on 03/24/24 14:21 UA Ketone Positive Last Edit by DEDE Singer on 03/24/24 14:21 UA Bilirubin 1 mg/dL Last Edit by DEDE Singer on 03/24/24 14:21 UA Glucose 0 mg/dL Last Edit [facility] on 03/24/24 14:21 Results Reviewed Results Reviewed: Laboratory Last Values Urine pH (Auto) 6.0 03/24/24 14:20 Specific Pruden (Auto) 1.030 03/24/24 14:20 Urine Protein (Auto) 30 mg/dL 03/24/24 14:20 Glucose (UA)(Auto) 0 mg/dL 03/24/24 14:20 Urine Ketones (Auto) Positive 03/24/24 14:20 Urine Blood (Auto) 0 Alonso/uL 03/24/24 14:20 Urine Nitrite (Auto) Negative 03/24/24 14:20 Urine Bilirubin (Auto) 1 mg/dL 03/24/24 14:20 Urine Urobilinogen (Auto) 0.2 mg/dL 03/24/24 14:20 Leukocyte Esterase (Auto) 0 Huyen/uL 03/24/24 14:20 Assessment & Plan Assessment & Plan (1) Nocturia more than twice per night: Code(s): R35.1 - Nocturia Category: Medical (2) Urinary urgency: Code(s): R39.15 - Urgency of urination Category: Medical Plan Trial tadalafil Two month follow-up Orders: Orders AMB Urinalysis Automated 03/24/24 Z13.9 - Encounter for screening, unspecified Medications: New tadalafil 5 mg PO DAILY 90 tabs 0RF 90 days R35.1 - Nocturia Patient Instructions: Imaging studies, laboratory and physical exam results were discussed and reviewed in detail. No major barriers to patient understanding were identified. An opportunity to ask questions regarding the treatment plan was provided. All questions were answered. The patient expressed understanding and agreement with the above treatment plan. The patient is aware they should contact our office by phone for worsening of their current condition or the appearance of new urologic symptoms. Compliance is encouraged with any medications and followup testing that is ordered. It is a privilege to participate in the urologic care of your patient. If you have any questions or concerns regarding treatment for the above conditions, or other urologic issues, please do not hesitate to contact me. The office telephone contact is [phone]. This note is constructed using voice recognition software. While every effort has been made to ensure accuracy tying machine operator errors may have been included. Yours sincerely, Dr Joselito Lyle MD, JAC[facility] - Urology Providers of Expert, Compassionate Care for the Genitourinary System Coding Level of Care Code Est Pt Level 4 (85075) Diagnoses Nocturia more than twice per night R35.1 Urinary urgency R39.15
== END 2024-03-24 14:55 | disposition home or self-care (01) ==
PROVIDERS: PCP Internal Medicine; Visit Provider Urology
DX: R35.1 Nocturia (principal); R39.15 Urgency of urination
CPT/HCPCS: 99214

== ENCOUNTER → 2024-03-24 13:55 | Outpatient (BNVA) | payer MEDICARE, SELFPAY | PROVIDERS: PCP Internal Medicine; Visit Provider Urology | DX: R35.1 Nocturia (principal); R39.15 Urgency of urination | CPT/HCPCS: 81003; 99212 ==

== ENCOUNTER 2024-04-14 09:26 | Emergency (ER) | payer MEDICARE, SELFPAY ==
--- NOTE | ~2024-04-14 | XR_ITS ---
EXAMINATION: XR CHEST CLINICAL INFORMATION: Shortness of breath COMPARISON: Chest x-ray on 06/03/2023 TECHNIQUE: 2 views of the chest were obtained. FINDINGS: HEART & VASCULARITY: There are normal cardiac size and pulmonary vascularity. LUNGS: Lungs are clear. No pneumothorax is seen. BONES: Bony skeleton is intact. XR/XR chest 2V IMPRESSION: Unchanged Normal chest x-ray. Electronically signed by: Yennifer Lakhani MD 04/14/2024 11:54 AM EDT
[2024-04-14 10:16] VITALS: BP 154/94; PULSE 75; RESP 18; TEMP 36.6; O2SAT 96; BMI 29.8
--- NOTE | 2024-04-14 10:21 | ECG_ITS ---
Test Reason : abd pain Blood Pressure : / mmHG Vent. Rate : 091 BPM Atrial Rate : 091 BPM P-R Int : 158 ms QRS Dur : 110 ms QT Int : 382 ms P-R-T Axes : 010 -09 -08 degrees QTc Int : 469 ms Sinus rhythm with Premature atrial complexes with Aberrant conduction Right bundle branch block Inferior infarct , age undetermined Abnormal ECG When compared with ECG of 29-DEC-2023 07:24, No significant change was found Referred By: Generic ED Physician Electronically Signed By:HENOK CURRAN
[2024-04-14 11:20] LABS: B Type Natriuretic Peptide 53 pg/mL (<100)
[2024-04-14 11:31] LABS: Alanine Aminotransferase 19 U/L (0-40); Albumin Level 4.4 g/dL (3.5-5.0); Alkaline Phosphatase 61 U/L (39-117); Anion Gap 12 (12-20); Aspartate Amino Transferase 23 U/L (5-37); Bilirubin Total 0.6 mg/dL (0.0-1.0); Blood Urea Nitrogen 10 mg/dL (9-16); Calcium 9.5 mg/dL (8.4-10.2); Carbon Dioxide 25 mmol/L (22-29); Chloride 107 mmol/L (96-108); Creatinine Clr Calc Pharmacy 76.3; Estimated Glomerular Filt Rate > 60; Glucose Random 119 mg/dL (60-115); Potassium 3.4 mmol/L (3.3-5.1); Sodium 141 mmol/L (135-145); Total Protein 7.6 g/dL (6.5-8.0)
[2024-04-14 14:00] VITALS: BP 155/99; PULSE 75; RESP 18; TEMP 36.9; O2SAT 98
--- NOTE | 2024-04-14 14:51 | ED.GENADULT ---
HPI - General Adult General Chief complaint: Abdominal Pain Stated complaint: Abd pain Time Seen by Provider: 04/14/24 14:51 History of Present Illness ED Provider: Rancho BLACKMAN narrative: The patient is a 73-year-old male who says that for the last 4 days he has had epigastric abdominal discomfort radiating to his chest. He has also had a sense of increased sat elevation and he feels he is bringing up bubbly saliva. No real vomiting. No shortness of breath. The patient says that a few weeks ago he was prescribed a medication to help with nocturia. However the patient did not really like taking this medication and stopped taking it about 4 days ago. He says he is urinating fine at this point. No fever, sweats, chills. Related Data Home Medications ?Medication ?Instructions ?Recorded ?Confirmed amlodipine 10 mg tablet 10 mg PO DAILY 03/07/22 Previous Rx's ?Medication ?Instructions ?Recorded acetaminophen 500 mg tablet 500 mg PO Q6H PRN pain #30 tabs 09/27/23 (Tylenol Extra Strength) cyclobenzaprine 5 mg tablet 5 mg PO TID PRN muscle spasm #14 09/27/23 tabs colchicine 0.6 mg tablet 0.6 mg PO DAILY #7 tabs 03/17/24 tadalafil 5 mg tablet 5 mg PO DAILY 90 days #90 tabs 03/24/24 omeprazole 40 mg capsule,delayed 40 mg PO DAILY #30 caps 04/14/24 release Allergies Allergy/AdvReac Type Severity Reaction Status Date / Time No Known Allergies Allergy Verified 04/14/24 10:20 [No Known Allergies*] Review of Systems Review of Systems: Yes all other systems are reviewed and are negative [facility] Past Medical History Medical History Hypertension Social History Social History Alcohol intake: current Alcohol intake frequency: holidays/special occasions only Alcohol type: beer Patient Tobacco Use Status: Former Tobacco user Advance Directives: No Advance Directives Information Provided: No Physical Exam ED Vital Signs: Vital Signs - 24 hr 04/14/24 10:16 04/14/24 14:00 04/14/24 16:00 Temperature 97.9 F 98.4 F 97.8 F Pulse Rate 75 75 80 Respiratory Rate 18 18 18 Blood Pressure 154/94 H 155/99 H 137/87 Pulse Oximetry 96 98 95 Oxygen Delivery Method Room Air Room Air Room Air 04/14/24 17:07 Temperature 97.8 F Pulse Rate 80 Respiratory Rate 18 Blood Pressure 137/87 Pulse Oximetry 95 Oxygen Delivery Method Room Air BMI result Body Mass Index 29.8 Const Other: The patient is awake, alert, pleasant, cooperative. He does not appear ill or in distress. HENMT Other: Face is symmetrical, mucous membranes moist Eyes Other: Pupils are round equal, conjunctivae are clear Neck Neck: Yes no JVD Resp Effort & Inspection: normal respiratory effort Auscultation: clear to auscultation bilaterally Cardio Rate: regular rate Rhythm: regular rhythm Heart sounds: S1 normal heart sound present and S2 normal heart sound present GI Other: The abdomen is soft and nontender, no Martínez's sign. Skin Other: Skin is dry and unremarkable Neuro Other: The patient is awake and alert with a normal mental status. Cranial nerves are intact. He moves his extremities symmetrically and appropriately. Extrem Other: No peripheral edema Medications Administered Discontinued Medications Generic Name Dose Route Start Last Admin Trade Name Freq PRN Reason Stop Dose Admin Sucralfate 1 gm 04/14/24 15:17 04/14/24 15:54 Sucralfate Oral Suspension 1 Gm/10 Ml Oral.Susp PO 04/14/24 15:18 1 gm ONCE ONE Administration Medical Decision Making Medical Decision Making [facility] Narrative: the patient describes symptoms that seem most highly suggestive of gastritis and possible reflux. He has a chronically abnormal EKG with right bundle-branch block. his troponin is normal. Other labs are unremarkable. His exam seems very benign. He was given a dose of sucralfate with improvement in his symptoms. He will be discharged with prescription for omeprazole. Lab Data 04/14/24 15:58 04/14/24 10:54 Labs: Lab Results 04/14/24 04/14/24 Range/Units 10:54 15:58 WBC 4.1 L (4.8-10.8) X10*3/uL RBC 4.66 (4.60-5.80) X10*6/uL Hgb 14.6 (14.0-18.0) g/dl Hct 42.8 (42.0-52.0) % MCV 91.8 (80.0-98.0) fL MCH 31.3 (27.0-33.0) pg MCHC 34.1 (31.0-36.0) g/dl RDW 13.3 (11.0-16.0) % Plt Count 217 D (160-400) X10*3/uL MPV 12.3 (9.4-12.4) fL Immature Gran % (Auto) 0.2 (0.0-0.4) % Neut % (Auto) 43.3 L (45-73) % Lymph % (Auto) 36.6 (20-40) % [place] % (Auto) 16.0 H (2-11) % Eos % (Auto) 2.9 (0-4) % Baso % (Auto) 1.0 (0-2) % Lymph # (Auto) 1.5 (1.2-4.9) X10*3/uL [place] # (Auto) 0.7 (0.1-1.2) X10*3/uL Eos # (Auto) 0.1 (0.0-0.4) X10*3/uL Baso # (Auto) 0.0 (0.0-0.2) X10*3/uL Abs Immat Gran (auto) 0.01 (0.00-0.03) X10*3/uL Absolute Neuts (auto) 1.8 L (2.0-8.3) x10*3/uL Absolute Nucleated RBC 0.000 (0.0-0.012) X10*3/uL Nucleated RBC % (auto) 0.0 (0.0-0.2) /100WBC Sodium 141 (135-145) mmol/L Potassium 3.4 (3.3-5.1) mmol/L Chloride 107 (96-108) mmol/L Carbon Dioxide 25 (22-29) mmol/L Anion Gap 12 (12-20) BUN 10 (9-16) mg/dL Creatinine 0.76 (0.5-1.4) mg/dL Estim Creat Clear Calc 76.3 Estimated GFR > 60 Random Glucose 119 H (60-115) mg/dL Calcium 9.5 (8.4-10.2) mg/dL Total Bilirubin 0.6 (0.0-1.0) mg/dL AST 23 (5-37) U/L ALT 19 (0-40) U/L Alkaline Phosphatase 61 (39-117) U/L Troponin I High Sens 4.4 (<3.5-35.0) ng/L B-Natriuretic Peptide 53 (<100) pg/mL Total Protein 7.6 (6.5-8.0) g/dL Albumin 4.4 (3.5-5.0) g/dL Independent Interpretation I performed an independent interpretation of an: EKG Interpretation: EKG at 10:41 shows sinus rhythm with premature atrial complexes. There is a right bundle branch block. Overall there is no significant change from previous. Discharge Plan Discharge Clinical Impression: Acute epigastric pain Patient Disposition: Home, Self-Care Instructions: Gastritis (ED) Additional Instructions: I think your symptoms are primarily related to stomach acid problems which we would call ?gastritis. I have sent a prescription for medication called omeprazole to your pharmacy which I hope will help with your symptoms. Please take this medication once a day. Please contact your regular doctor's office tomorrow to set up a follow up appointment soon to discuss these symptoms further. Return to the emergency room if you feel significantly worse. Prescriptions: New omeprazole 40 mg capsule,delayed release(DR/EC) 40 mg PO DAILY Qty: 30 0RF No Action cyclobenzaprine 5 mg tablet 5 mg PO TID PRN (Reason: muscle spasm) Qty: 14 0RF acetaminophen [Tylenol Extra Strength] 500 mg tablet 500 mg PO Q6H PRN (Reason: pain) Qty: 30 0RF colchicine 0.6 mg tablet 0.6 mg PO DAILY Qty: 7 0RF Rx Instructions: On day 1, take 2 tablets followed by 1 tablet 1 hour later. Do not exceed 3 tablets in 24 hours. On day 2 and 3, take 1 tablet every 12 hours. amlodipine 10 mg tablet 10 mg PO DAILY tadalafil 5 mg tablet 5 mg PO DAILY 90 Days Qty: 90 0RF Referrals: Yaneth Soto MD [Physician] - Interventions: ED Discharge Assessment Last Done: 04/14/24 17:07 Discharge Date/Time: 04/14/24 17:07 Print Language: Kazakh
[2024-04-14] MEDS: Sucralfate Oral Suspension 1 GM/10 ML ORAL.SUSP PO (15:54)
[2024-04-14 16:00] VITALS: BP 137/87; PULSE 80; RESP 18; TEMP 36.6; O2SAT 95
[2024-04-14 16:12] LABS: Eosinophils Absolute Auto 0.1 X10*3/uL (0.0-0.4); Eosinophils Percent Auto 2.9 % (0-4); Hematocrit 42.8 % (42.0-52.0); Hemoglobin 14.6 g/dl (14.0-18.0); Imm Gran Abs Auto 0.01 X10*3/uL (0.00-0.03); Imm Gran Pct Auto 0.2 % (0.0-0.4); Lymphocytes Absolute Auto 1.5 X10*3/uL (1.2-4.9); Lymphocytes Percent Auto 36.6 % (20-40); Mean Corpuscular HGB Conc 34.1 g/dl (31.0-36.0); Mean Corpuscular Hemoglobin 31.3 pg (27.0-33.0); Mean Corpuscular Volume 91.8 fL (80.0-98.0); Mean Platelet Volume 12.3 fL (9.4-12.4); Monocytes Absolute Auto 0.7 X10*3/uL (0.1-1.2); Neutrophils Absolute Auto 1.8 x10*3/uL (2.0-8.3); Neutrophils Percent Auto 43.3 % (45-73); Platelet Count 217 X10*3/uL (160-400); Red Blood Count 4.66 X10*6/uL (4.60-5.80); Red Cell Distribution Width 13.3 % (11.0-16.0); White Blood Count 4.1 X10*3/uL (4.8-10.8)
[2024-04-14 16:19] LABS: Troponin-I High Sensitivity 4.4 ng/L (<3.5-35.0)
[2024-04-14 17:07] VITALS: BP 137/87; PULSE 80; RESP 18; TEMP 36.6; O2SAT 95
== END 2024-04-14 17:07 | disposition home or self-care (01) ==
PROVIDERS: Emergency Provider Emergency Medicine
DX: R10.13 Epigastric pain (principal); I45.10 Unspecified right bundle-branch block; R94.31 Abnormal electrocardiogram [ECG] [EKG]; R06.02 Shortness of breath; Z79.899 Other long term (current) drug therapy
CPT/HCPCS: 36415; 71046; 80053; 83880; 84484; 85025; 93005; 99283; 99284

== ENCOUNTER 2025-01-25 08:53 | Outpatient (AMB) | payer MEDICARE, SELFPAY ==
--- OUTSIDE RECORDS SUMMARY | 2025-01-25 09:07 | XMS_ITS | Clinical Summary ---
Author Organization 175 [facility] Address [address] [place] [address] Phone Care Team Providers Care Tourist Home Keeper Name Role Phone Yaneth Davis MD Primary Care Prov ider Allergies No known active allergies Medications vitamin E acetate (VITAMIN E ORAL) 1 (one) time each day. 08/28/2019 Active amLODIPine (NORVASC) 10 mg tablet Take 1 tablet (10 mg total) by mouth 1 (one) time each day. 90 tablet 1 06/05/2024 Active furosemide (LASIX) 20 mg tablet Take 1 tablet (20 mg total) by mouth 1 (one) time each day. 30 each 2 12/17/2024 5 Active allopurinoL (ZYLOPRIM) 100 mg tablet Take 1 tablet (100 mg total) by mouth 1 (one) time each day. 90 each 3 12/18/2024 6 Active Active Problems Problem Noted Date Diagnosed Date Acquired hallux valgus of left foot 07/28/2024 Tailor's bunionette, left 07/28/2024 Hammer toe of left foot 07/28/2024 Contracture of joint of left foot 07/28/2024 Hallux valgus (acquired), left foot 06/08/2024 Bunionette of left foot 06/08/2024 Other hammer toe(s) (acquired), left foot 2023 Gynecomastia 04/27/2024 Hepatic steatosis 04/27/2024 Tubular adenoma of colon 04/27/2024 Overview (04/27/2024): Colonoscopy performed on October 02, 2019 with -2 tubular adenomas removed from transverse colon angiodysplastic lesion removed from cecum Overweight (BMI 25.0-29.9) 08/05/2023 Gouty arthritis of foot 08/17/2021 Overview (04/27/2024): Dx by orthopedic 07/2021 Assessment & Plan (06/05/2024 1:50 PM EST): No symptoms, not taking any medications. Will recheck uric acid before his next visit. Will aim for 6 or less. Orders: Uric acid; Future Pulmonary nodule, right 08/17/2021 Pre-diabetes 08/18/2020 Assessment & Plan (12/17/2024 11:37 AM EDT): Assessment & Plan (06/05/2024 1:50 PM EST): Will recheck A1C before his next visit. Orders: Comprehensive metabolic panel; Future Lipid panel with reflex to direct LDL; Future Hemoglobin A1c; Future Abnormal ultrasound of liver 06/29/2019 Elevated fasting glucose 06/29/2019 Habitual alcohol use 11/30/2014 Alcoholic liver disease (CMS/HCC V24) 11/22/2010 Overview (04/27/2024): Hepatomegaly, normal LFT after successful rx of HCV. Chronic Hepatitis C Genotype 1A. Tx Pegasys & Ribavirin. SVR Achieved 04/14/10 Assessment & Plan (12/17/2024 11:37 AM EDT): Assessment & Plan (06/05/2024 1:50 PM EST): Follows regularly with GI. Denies heavy drinking. No symptoms of exacerbation. Abstinence is encouraged. Orders: Comprehensive metabolic panel; Future Lipid panel with reflex to direct LDL; Future Chronic hepatitis C virus in fection (CMS/HCC V24, CMS/HCC V28) 06/04/2007 Overview (04/27/2024): Treated 8920-0434, sustained viral response, no evidence of cirrhosis. Viral load zero 2009. Hydrocele 02/21/2007 Essential hypertension, benign 08/28/2006 Assessment & Plan (12/17/2024 11:37 AM EDT): Assessment & Plan (06/05/2024 1:50 PM EST): BP is well controlled today 122/68, on Amlodipine 10mg day. Recommeded to follow a low salt diet. Orders: Comprehensive metabolic panel; Future Lipid panel with reflex to direct LDL; Future Encounters Date Type Department Care Team Description 01/12/2025 9:00 AM EDT Office Visit Orthopedic [place] [phone] [phone] Pravin Randolph DPM Hammer toe of left foot (Primary Dx); Follow-up exam; Metatarsalgia of left foot; Dermatophytosis of nail 12/17/2024 11:15 AM EDT Office Visit [address] [phone] Yaneth Davis MD Essential hypertension, benign (Primary Dx); Alcoholic liver disease (CMS/HCC V24); Pre-diabetes; Edema of both legs 12/08/2024 9:30 AM EDT Office Visit Orthopedic [place] [phone] [phone] Pravin Randolph DPM Metatarsalgia of left foot (Primary Dx); Post-operative state; Dermatophytosis of nail 10/29/2024 10:15 AM EDT Office Visit [place] [phone] [phone] Pravin Randolph DPM Dermatophytosis of nail (Primary Dx); Post-operative state; Acquired hallux valgus of left foot; Pain in toe of left foot; Difficulty walking; Ingrowing nail from Last 3 Months Immunizations Name Administration Dates Next Due H1N1 Inj Preservative Free 06/22/2009 Hepatitis B (Vuuknxh-E-Rvquv , Recombivax HB-Adult) 19yo and older 07/10/2007,02/07/2007,01/10/2007 Influenza trivalent, with pr eservative (Fluzone; Afluria) 6mo and older 05/02/2011,06/22/2009 Td Tetanus diptheria (Tdvax) 7yo and older 07/07 Tdap Tetanus diptheria acell ular pertussis (Boostrix; Adacel) 7yo and older 08/28/2006 Surgical History Surgery Date Site/Laterality Comments OTHER SURGICAL HISTORY 04/08/07 PROCEDURE: WI BIOPSY LIVER NEEDLE PERCUTANEOUS; COMMENT: Chronic Hepatitis, grade3-4, stage 3-4. piecemeal and bridging necrosis. COLONOSCOPY 05/05/07 PROCEDURE: WI COLONOSCOPY STOMA DX INCLUDING COLLJ SPEC SPX; COMMENT: Up to cecum, normal colon exam, but limited examination due poor preparation at the cecum and ascending colon COLONOSCOPY 2008 PROCEDURE: WI COLONOSCOPY FLX DX W/COLLJ SPEC WHEN PFRMD; COMMENT: good prep, normal COLONOSCOPY PROCEDURE: HISTORICAL COLONOSCOPY; COMMENT: Performed October 02, 2019 with -2 tubular adenomas removed FOOT SURGERY Right PROCEDURE: HISTORICAL FOOT SURGERY; COMMENT: Performed in 2019 not familiar with which foot or what type of surgery was performed Medical History Medical History Date Comments Unspecified essential hypertension DX:Unspecified essential hypertension Dislocation of shoulder DX:Dislo cation of shoulder; COMMENT: 3 times, initially as an injury; no MD care Chronic hepatitis C without mention of hepatic coma 06/04/2007 DX:Chronic hepatitis C witho ut mention of hepatic coma Gynecomastia DX:Gynecomastia Non compliance w medication regimen 05/08/2018 DX:Non compliance w medication regimen Hepatic steatosis DX:Hepatic kiko atosis Tubular adenoma of colon DX:Tubu lar adenoma of colon; COMMENT: Colonoscopy performed on October 02, 2019 with -Alexandro tubular adenomas removed from transverse colon angiodysplastic lesion removed from cecum History of tobacco abuse DX:Hist ory of tobacco abuse Fatty liver DX:Fatty liver GERD (gastroesophageal reflu x disease) Arthritis Joint pain Family History Medical History Relation Name Comments Arthritis Mother Cataracts Mother Blindness Neg Hx Colon cancer Neg Hx as of 1 Glaucoma Neg Hx Macular degeneration Neg Hx Strabismus Neg Hx Relation Name Status Comments Brother 1 Alive cancer? type Brother 2 Alive Brother 3 Alive Brother 4 Alive Brother 5 Alive Father Alive Mother Alive cancer? type Sister 1 Alive Sister 2 Alive Sister 3 Alive Sister 4 Alive Social History Tobacco Use Types Packs/Day Years Used Date Smoking Tobacco: Former Cigarettes 0.3 40.9 0 07/22/1971 - 06/29/2012 Smokeless Tobacco: Never Tobacco Cessation:Counseling Given: Not Answered Alcohol Use Standard Drinks/Week Comments Yes 2 (1 standard drink = 0.6 oz pur e alcohol) 4-5 TIMES WEEK Housing Instability Answer Date Recorde d Are you worried that in the next 2 months you may not have stable housing? No 06/05/2024 Food Access & Nutrition Answer Date Rec orded Do you have access to a vari ety of food including fruits and vegetables? Yes 06/05/2024 Access to Healthcare Answer Date Record ed Within the last 3 months, ho w many times did you visit the emergency department for your medical care? 2 06/05/2024 Health Literacy Answer Date Recorded How often do you need to hav e someone help you when you read instructions, pamphlets, or other written material from your doctor or pharmacy? Never 06/05/2024 Caregiver: How often do you need to have someone help you when you read instructions, pamphlets, or other written material from your doctor or pharmacy? Not on file 06/05/2024 Financial Risk Answer Date Recorded How hard is it for you to pa y for the very basics like food, housing, medical care, and air conditioning / heating? Not very hard 06/05/2024 Transportation Answer Date Recorded Has the lack of transportati on kept you from meetings, work, or from getting things needed for daily living? No Has the lack of transportati on kept you from medical appointments or from getting medications? No 06/05/2024 Social Isolation Answer Date Recorded How often do you feel lonely or isolated from th ose around you? Rarely 06/05/2024 Food Risk Answer Date Recorded Within the past 12 months we worried whether our food would run out before we got money to buy more. Never true 06/05/2024 Within the past 12 months th e food we bought just didn't last and we didn't have money to get more. Never true 06/05/2024 Dependent Care Answer Date Recorded Do you need help finding or paying for care for your loved ones. For example, child care director or elderly care for an older adult? No 06/05/2024 Education Answer Date Recorded Do you think completing more education or training, like finishing a GED, going to college, or learning a trade, would be helpful for you? No 06/05/2024 Employment and Income Answer Date Recor ded During the last four weeks, have you been actively looking for work? No 06/05/2024 Living Situation Answer Date Recorded What is your living situation? 1 08/05/2023 Interpersonal Safety Answer Date Record ed Physical Abuse 07/31/2024 Verbal Abuse 07/31/2024 Sex and Gender Information Value Date Recorded Sex Assigned at Male 07/31/2024 10:36 AM EST Legal Sex Male 12:36 PM EST Gender Identity Male 07/31/2024 10:36 AM EST Sexual Orientation Straight 07/31/2024 10 :36 AM EST Obstetrics History Last Filed Vital Signs Vital Sign Reading Time Taken Comments Blood Pressure 157/95 12/17/2024 11:13 AM EDT av g bp Pulse 91 12/17/2024 11:13 AM EDT Temperature 36.1 C (97 F) 12/17/2024 11:08 AM EDT Respiratory Rate 16 12/17/2024 11:08 AM EDT Oxygen Saturation 95% 12/17/2024 11:08 AM EDT Inhaled Oxygen Concentration - - Weight 80.6 kg (177 lb 9.6 oz) 12/17/2024 11:08 AM EDT Height 157.5 cm (5' 2 ) 12/17/2024 11:08 AM EDT Body Mass Index 32.48 12/17/2024 11:08 AM EDT Plan of Treatment Upcoming Encounters Date Type Department Care Team (Late st Contact Info) Description 03/19/2025 12:00 PM EDT Office Visit Adult Medicine [address] [phone] Yaneth Davis MD [address] [place] [phone] 07/19/2025 1:00 PM EST Office Visit Orthopedic Surgery [facility] [address] [phone] Pravin Randolph, DPM [address] [address] Health Maintenance Due Date Last Done Comments Hepatitis A Vaccines (1 of 2 - Risk 2-dose series) 1969 RSV Immunization Adult Patients (1 - Risk 60-74 years 1-dose series) 2010 Abdominal Aortic Aneurysm (AAA) Screen 06/30/2022 Falls Risk Assessment 12/05/2024 12/06/2023 Medicare Annual Wellness Visit 03/05/2025 03/05/2024 Depression Screening 06/05/2025 06/05/2024, 03/05/2024 Social Influencers of Health Screening 06/05/2025 06/05/2024 Hypertension/CHF/CAD Annual BMP Blood Test 12/18/2025 12/18/2024, 10/03/2023 Colorectal Cancer Screening: Colonoscopy 10/01/2029 10/02/2019 Cholesterol Screening (Lipid Panel) 12/18/2029 12/18/2024, 12/18/2024, 10/03/2023 DTaP,Tdap,and Td Vaccines (3 - Td or Tdap) 07/07/2031 07/07/2021, 08/28/2006 Hepatitis B Vaccines Completed 07/10/2007, 02/07/2007, 01/10/2007 Influenza Vaccine Discontinued 05/02/2011, 06/22/2009, 06/22/2009 Hepatitis C Screening Completed 07/06/2021 COVID-19 Vaccine Discontinued HIB Vaccines Aged Out No longer eligi ble based on patient's age to complete this topic HPV Vaccines Aged Out No longer eligi ble based on patient's age to complete this topic IPV Vaccines Aged Out No longer eligi ble based on patient's age to complete this topic MMR Vaccines Aged Out No longer eligi ble based on patient's age to complete this topic Meningococcal ACWY Vaccine Aged Out N o longer eligible based on patient's age to complete this topic Meningococcal B Vaccine Aged Out No l onger eligible based on patient's age to complete this topic Pneumococcal Vaccine: 50+ Years Discontinued RSV Immunization Patients Under 20 months Aged Out No longer eligible based on patient's age to complete this topic Varicella Vaccines Aged Out No longer eligible based on patient's age to complete this topic Zoster Vaccines Discontinued Medical Devices Implanted Type Area Agent Based Modeler Device Identifier Shelf Expiration Date Model / Serial / Lot Nail Minibunion Offset Short 3.5mm - Sna - [id number] Implanted:Qty: 1 on 07/31/2024 by Pravin Randolph DPM at [facility] Internal and External Fixation Left: First Toe [employer] 02/14/2028 [id number] / NA / [id number] ++Dnu+Dup Use [id number] Screw Lcking 3.0x22mm H8 Minibunion - Sna - [id number] Implanted:Qty: 1 on 07/31/2024 by Pravin Randolph DPM at [facility] Internal and External Fixation Left: First Toe [employer] 09/04/2027 [id number] / NA / [id number] Screw Cannulated Compress Headless Short Thrd Ti 2.5x26mm - Sna - [id number] Implanted:Qty: 1 on 07/31/2024 by Pravin Randolph DPM at [facility] Internal and External Fixation Left: First Toe [employer] 04.333.12 6 / NA / NA Minibunion Non Locking Screw Implanted:Qty: 1 on 07/31/2024 by Pravin Randolph DPM at [facility] Left: First Toe [employer] [facility] 04/07/2028 [id number] / NA / [id number] Procedures Procedure Name Priority Date/Time Associated Diagnosis Comments XR FOOT 3+ VIEWS LEFT Routine 01/12/2025 9:12 AM EDT Follow-up exam LDL CHOLESTEROL, DIRECT Routine 12/18/2024 9:38 AM EDT Essential hypertension, benign Alcoholic liver disease (CMS/HCC V24) Pre-diabetes URIC ACID Routine 12/18/2024 9:38 AM EDT Gouty arthritis of foot HEMOGLOBIN A1C Routine 12/18/2024 9:38 AM EDT Pre-diabetes LIPID PANEL WITH REFLEX TO DIRECT LDL Routine 12/18/2024 9:38 AM EDT Essential hypertension, benign Alcoholic liver disease (CMS/HCC V24) Pre-diabetes COMPREHENSIVE METABOLIC PANEL Routine 12/18/2024 9:38 AM EDT Essential hypertension, benign Alcoholic liver disease (CMS/HCC V24) Pre-diabetes XR FOOT 3+ VIEWS LEFT Routine 12/08/2024 9:28 AM EDT Post-operative state XR FOOT 3+ VIEWS LEFT Routine 10/29/2024 10:27 AM EDT Post-operative state HM DEPRESSION SCREENING Routine 03/05/2024 FALLS RISK ASSESSMENT Routine 12/06/2023 HEPATITIS C SCREENING Routine 07/06/2021 COLONOSCOPY Routine 10/02/2019 from Last 3 Months or Most Recently Relevant to Health Maintenance Results * XR Foot 3+ Views Left (01/12/2025 9:12 AM EDT) Only the most recent of3 resultswithin the time period is included. Anatomical Region Laterality Modality Lower Extremities, Foot Left Computed Radiography Narrative 01/12/2025 12:36 PM EDT Left foot 3 views No fracture. No radiopaque foreign Appropriate position first ray Stable post op changes hardware intact reduction deformity maintained complete consolidation noted us Pravin Randolph DPJamia IMG XR PROCEDURES Final R esult * (ABNORMAL) Lipid panel with reflex to direct LDL (12/18/2024 9:38 AM EDT) Cholesterol 184 0 - 200 mg/dL LAB CHEMISTRY METHOD 12/18/2024 2:11 PM EDT [facility] Triglycerides 738(H) 0 - 150 mg/dL LAB CHEMISTRY METHOD 12/18/2024 2:11 PM EDT [facility] HDL 103 >=40 mg/dL LAB CHEMISTRY METHOD 12/18/2024 2:11 PM EDT [facility] LDL Calculated LAB CHEMISTRY METHOD 12/18/2024 2:11 PM EDT [facility] Comment: Unable to calculate when triglycerides >400 mg/dL. Triglyceride value is >= 500. Calculated LDL is not meaningful. Direct LDL has been added. VLDL Cholesterol Jimmie LAB CHEMISTRY METHOD 12/18/2024 2:11 PM EDT [facility] Comment:Unable to calculate when triglycerides >400 mg/dL. Non HDL Chol. (LDL+VLDL) LAB CHEMISTRY METHOD 12/18/2024 2:11 PM EDT [facility] Comment:Unable to calculate when triglycerides >400 mg/dL. Chol/HDL Ratio 1.8 0.0 - 4.4 LAB CHEMISTRY METHOD 12/18/2024 2:11 PM EDT [facility] Blood Venous blood specimen / Unknown Venipuncture / Unknown 12/18/2024 9:38 AM EDT 12/18/2024 9:38 AM EDT us Yaneth Davis MD LAB BLOOD ORDERABL ES Final Result [facility] [address] [place] [address], * (ABNORMAL) Uric acid (12/18/2024 9:38 AM EDT) Uric Acid 10.1(H) 3.7 - 9.2 mg/dL LAB CHEMISTRY METHOD 12/18/2024 2:09 PM EDT [facility] Blood Venous blood specimen / Unknown Venipuncture / Unknown 12/18/2024 9:38 AM EDT 12/18/2024 9:38 AM EDT us Yaneth Davis MD LAB BLOOD ORDERABL ES Final Result [facility] [address] [place] [address], [place] [phone] * LDL cholesterol, direct (12/18/2024 9:38 AM EDT) LDL Direct 77 <=100 mg/dL LAB CHEMISTRY METHOD 12/18/2024 2:22 PM EDT [facility] Blood Venous blood specimen / Unknown Venipuncture / Unknown 12/18/2024 9:38 AM EDT 12/18/2024 9:38 AM EDT Yaneth Davis MD LAB BLOOD ORDERABL ES Final Result Performing Organization Address [facility]/ZIP Co de Phone Number [facility] [address] [place] [address], [place] [phone] * Hemoglobin A1c (12/18/2024 9:38 AM EDT) Hemoglobin A1C 4.9 <6.5 % LAB CHEMISTRY METHOD 12/18/2024 1:48 PM EDT [facility] Mean Bld Glu Estim. 94 mg/dL LAB CHEMISTRY METHOD 12/18/2024 1:48 PM EDT [facility] Blood Venous blood specimen / Unknown Venipuncture / Unknown 12/18/2024 9:38 AM EDT 12/18/2024 9:38 AM EDT Yaneth Davis MD LAB BLOOD ORDERABL ES Final Result [facility] [address] [place] [address], [place] [phone] * (ABNORMAL) Comprehensive metabolic panel (12/18/2024 9:38 AM EDT) Sodium 140 133 - 145 mmol/L LAB CHEMISTRY METHOD 12/18/2024 2:10 PM [facility] Potassium 3.8 3.5 - 5.5 mmol/L LAB CHEMISTRY METHOD 12/18/2024 2:10 PM [facility] Chloride 104 96 - 110 mmol/L LAB CHEMISTRY METHOD 12/18/2024 2:10 PM [facility] CO2 27 21 - 32 mmol/L LAB CHEMISTRY METHOD 12/18/2024 2:10 PM [facility] Anion Gap 9 3 - 11 LAB CHEMISTRY METHOD 12/18/2024 2:10 PM [facility] Glucose 95 70 - 100 mg/dL LAB CHEMISTRY METHOD 12/18/2024 2:10 PM [facility] BUN 13 5 - 25 mg/dL LAB CHEMISTRY METHOD 12/18/2024 2:10 PM [facility] Creatinine 0.67(L) 0.70 - 1.30 mg/dL LAB CHEMISTRY METHOD 12/18/2024 2:10 PM [facility] eGFR 98 >=60 mL/min/1. 73m2 LAB CHEMISTRY METHOD 12/18/2024 2:10 PM [facility] Comment:Calculation based on the Chronic Kidney Disease Epidemiology Collaboration (CKD-EPI) equation refit without adjustment for race. BUN/Creatinine Ratio 19.4 LAB CHEMISTRY METHOD 12/18/2024 2:10 PM [facility] Calcium 9.2 8.5 - 10.5 mg/dL LAB CHEMISTRY METHOD 12/18/2024 2:10 PM [facility] AST (SGOT) 25 10 - 42 unit/L LAB CHEMISTRY METHOD 12/18/2024 2:10 PM [facility] ALT (SGPT) 26 10 - 60 unit/L LAB CHEMISTRY METHOD 12/18/2024 2:10 PM [facility] Alkaline Phosphatase 73 42 - 121 unit/L LAB CHEMISTRY METHOD 12/18/2024 2:10 PM EDT [facility] Total Protein 7.3 6.0 - 8.0 g/dL LAB CHEMISTRY METHOD 12/18/2024 2:10 PM EDT [facility] Albumin 3.9 3.2 - 5.0 g/dL LAB CHEMISTRY METHOD 12/18/2024 2:10 PM EDT [facility] Total Bilirubin 0.6 0.0 - 1.4 mg/dL LAB CHEMISTRY METHOD 12/18/2024 2:10 PM EDT [facility] Blood Venous blood specimen / Unknown Venipuncture / Unknown 12/18/2024 9:38 AM EDT 12/18/2024 9:38 AM EDT Yaneth Davis MD LAB BLOOD ORDERABL ES Final Result [facility] [address] [place] [address], [place] [phone] * Depression Screening (03/05/2024) [facility] Depression Screening abstracted [facility] Provider HEALTH MAINTENANCE Final Result * Falls Risk Assessment (12/06/2023) [facility] Falls Risk Assessment abstracted [facility] Provider HEALTH MAINTENANCE Final Result * Hepatitis C Screening (07/06/2021) [facility] Hepatitis C Screening abstracted [facility] Provider HEALTH MAINTENANCE Final Result * Colonoscopy (10/02/2019) [facility] Colonoscopy no interpretation , abstracted Anatomical Region Laterality Modality Other [facility] Provider HEALTH MAINTENANCE Final Result from Last 3 Months or Most Recently Relevant to Health Maintenance Insurance MEDICARE AUTO GENERIC Advance Directives * Full Code - Default (Latest Code Status on File) Date Activated Date Inactivated Comments 07/31/2024 11:15 AM 07/31/2024 6:18 PM This is ord er is used when code status has not been discussed with the patient, or code status is otherwise unknown/unconfirmed To update the patient's code status, place a code status order. Do not modify or discontinue any currently active code status orders. Care Teams Tourist Home Keeper Relationship Specialty Start Date End Date Yaneth Davis MD [address] [place] [phone] PCP - General Internal Medicine 01/18/22
--- NOTE | 2025-01-25 09:16 | AM.OFFWIN_ITS ---
Intake Vital Signs 01/25/25 09:17 Height 5 ft 2 in Weight 175 lb BMI 32.0 BP 126/68 Blood Pressure Location Rt brachial Position Sitting Pulse 90 Pulse Source Pulse Oximeter Temp 98 F Temp Source Oral Pulse Oximetry (%) 99 Oxygen Delivery Method Room Air Intake Visit Reasons: EP Bruising on RT leg. Intake Note: presents with painful bruising and swelling on right calf and bruising on right inner foot for a week Patient Tobacco Use Status: Former Tobacco user Allergies No Known Allergies (No Known Allergies*) Allergy (Verified 01/25/25 09:17) Do you need a note to return to daycare/school/sports/work: No HPI HPI Comments History of Present Illness Details History of Present Illness - The patient is a 74-year-old [place] s peaking male presenting with a family member for swelling and a lump in the right leg. - The swelling and lump in the right leg were noticed about a week ago without any known inciting event. - The patient states that there is a bru ise or hardness in the area. - The patient is not on ASA or a blood t hinner. - He has no other bumps. - He has swelling on the ankle of the ri ght lower leg. - He denies trauma or falls. - He denies numbness, tingling, redness, warmth, or streaking. - The patient has a history of gout and hypertension, managed with amlodipine and a diuretic. Physical Exam General: Cooperative, healthy appearing, comfortable, no acute distress and well developed Respiratory: Normal respiratory effort and able to speak in complete sentences. Clear to auscultation bilaterally Cardiovascular: Regular rate and rhythm. Normal S1 and S2 Skin: No rashes or lesions noted. Bruise noted on the right inner lower leg. Neuro: Patient oriented x3. Sensation is intact. Extremities: Swelling noted on the right leg, with a lump present on the right lower medial aspect. No calf tenderness noted. 2+ pitting edema noted. FROM of the right knee and ankle. No TTP of the ankle. Ambulates with steady gait. Strength is 5/5 on the LE. Pulses are 1+ on the LE bilaterally. Patient was informed and verbally consented to the use of an ambient scribe for clinic note documentation during this visit. [facility] Medical History Hypertension Social History Alcohol intake: current Alcohol intake frequency: holidays/special occasions only Alcohol type: beer Patient Tobacco Use Status: Former Tobacco user Review of Systems Const All systems reviewed & are unremarkable except as noted in HPI and below Physical Exam Vital Signs: Last Vital Signs Temp 98 F 01/25/25 09:17 Pulse 90 01/25/25 09:17 BP 126/68 01/25/25 09:17 Pulse Ox 99 01/25/25 09:17 Oxygen Delivery Method Room Air 01/25/25 09:17 BMI result Body Mass Index 32.0 Assessment & Plan Assessment & Plan (1) Pain in right lower leg: Code(s): M79.661 - Pain in right lower leg Plan Most likely contusion vs hematoma vs DVT vs phleblitis Plan - Arrange for an ultrasound of the right leg to evaluate the swelling and lump. - Continue current medications for hypertension and gout, including amlodipine and diuretics. - Rest and elevate the leg - wear compression stockings - may need to switch his BP medications - follow up with PCP Orders: Orders US venous duplex LE RT Today M79.661 - Pain in right lower leg Coding Level of Care Code Est Pt Level 4 (13700) Diagnoses Pain in right lower leg M79.661
[2025-01-25 09:17] VITALS: BP 126/68; PULSE 90; TEMP 36.6; O2SAT 99; BMI 32.0
== END 2025-01-25 10:05 | disposition home or self-care (01) ==
PROVIDERS: Visit Provider Physician Assistant Medical
DX: M79.661 Pain in right lower leg (principal)

== ENCOUNTER 2025-01-25 10:05 | Outpatient (REF) | payer MEDICARE, SELFPAY ==
--- NOTE | ~2025-01-25 | US_ITS ---
EXAMINATION: US TRIPLEX LOWER EXTREMITY, RIGHT CLINICAL INFORMATION: Right leg pain. COMPARISON: None available. TECHNIQUE: Color-flow triplex imaging with spectral analysis and compression Doppler were performed on the right lower extremity. FINDINGS: Respiratory variation, normal compression and augmented flow are noted throughout the right lower extremity. The visualized common femoral vein, superficial femoral vein, profunda femoral vein, popliteal vein and midcalf peroneal and posterior tibial venous segments show no evidence of deep venous thrombosis. There is no Sue's cyst. US/US venous duplex LE RT IMPRESSION: No evidence of deep venous thrombosis involving the right lower extremity. Electronically signed by: Justin Van MD 01/25/2025 11:19 AM EDT
--- OUTSIDE RECORDS SUMMARY | 2025-01-25 10:48 | XMS_ITS | Patient Health Record ---
Author Organization [facility] Address [address] [place] [address] Care Team Providers Care Candy Waffle Assembler Name Role Phone Cassandra Berman Primary Care Provi missy Unavailable Reason For Referral No Information Medications Medication SIG (Take, Route, Fr equency, Duration) Notes Start Date End Date Status Vitamin E 400 UNIT 1 capsule Orally Once a day Active Indapamide 2.5 MG 2 tablets in the mor marielos Orally Once a day Active Lisinopril 20 MG 1 tablet Orally Once a day Active Plan Of Treatment Pending Test Test Name Order Date X ray : Foot, right, 2 views 02/01/2020 Insurance Providers Payer Name Payer Address Payer Phone Subscriber Number Group Number Insured Name Patient Relationship to Insured Coverage Start Date Coverage End Date [employer] of [place] [address] [place] [phone] [id number] Ruslan Guo Self - patient is the insured Medical (General) History Medical History History ICD Code Chronic viral hepatitis C B18.2 Fatty (change of) liver, not elsewhere c lassified K76.0 Abnormal findings on diagnostic imaging of liver and biliary tract R93.2 Impaired fasting glucose R73.01 Patient's other noncompliance with medic ation regimen Z91.14 Hypertrophy of breast N62 Other problems related to lifestyle Z72. 89 Alcoholic liver disease, unspecified K70 .9 Hydrocele, unspecified N43.3 Essential (primary) hypertension I10 Surgical History Surgery Date(Month/Year) right chevron bunionectomy 09/2019
== END 2025-01-25 10:06 | disposition home or self-care (01) ==
LOC: HO.HMGCX 10:05
PROVIDERS: PCP Internal Medicine; Visit Provider Physician Assistant Medical
DX: M79.661 Pain in right lower leg (principal)
CPT/HCPCS: 93971; 99212

== ENCOUNTER → 2025-01-25 10:34 | Outpatient (BNV) | payer MEDICARE, SELFPAY | PROVIDERS: PCP Internal Medicine; Visit Provider Radiology Diagnostic Radiology | DX: M79.661 Pain in right lower leg (principal) | CPT/HCPCS: 93971 ==

== ENCOUNTER 2025-06-01 10:43 | Emergency (ER) | payer MEDICARE, SELFPAY ==
--- NOTE | ~2025-06-01 | XR_ITS ---
EXAMINATION: XR FOOT, RIGHT CLINICAL INFORMATION: plantar pain COMPARISON: 07/09/2023 TECHNIQUE: AP, lateral, and oblique views of the right foot. FINDINGS: Postoperative changes related to bunionectomy are again identified. Headless compression screw remains intact and in position across healed region of osteotomy. There is persistent hallux valgus formation across the MTP joint measuring 26 degrees, similar to the prior. There is mild narrowing of the first MTP joint and marginal osteophytes increased from the prior. There is lateral subluxation of the lateral sesamoid of the first MTP joint. The medial sesamoid is not visualized. No acute abnormality. XR/XR foot RT min 3V IMPRESSION: Increasing osteoarthritis involving first MTP joint with persistent hallux valgus deformity across the first MTP joint. The lateral sesamoid of the first metatarsal head is laterally subluxed. Medial sesamoid is not identified and may have been surgically resected. Electronically signed by: Theodore Arroyo MD 06/01/2025 11:22 AM KEVIN
[2025-06-01 10:50] VITALS: BP 185/96; PULSE 99; RESP 20; TEMP 36.7; O2SAT 97; BMI 33.8
--- NOTE | 2025-06-01 10:50 | ED_ITS ---
HPI - General Adult General Chief complaint: Extremity Injury, Lower Stated complaint: R leg pain Time Seen by Provider: 06/01/25 16:13 Source: patient, RN notes reviewed and old records reviewed Mode of arrival: ambulatory Limitations: no limitations History of Present Illness ED Provider: Angelica BLACKMAN narrative: Patient is a 74 year old male presenting to the ED with complaint of pain to plantar surface of R foot, worse for the past 3-4 days. Falling due to the pain. Denies head strike with falls, states has falling onto his bed because he has this foot pain getting out of bed. Denies any initial injury/trauma. Denies any weakness, numbness or tingling. MD complaint: right foot pain Related Data Home Medications ?Medication ?Instructions ?Recorded ?Confirmed amlodipine 10 mg tablet 10 mg PO DAILY 03/07/22 allopurinol 100 mg tablet 100 mg PO DAILY 01/25/25 furosemide 20 mg tablet 20 mg PO DAILY 01/25/25 Previous Rx's ?Medication ?Instructions ?Recorded acetaminophen 500 mg tablet 500 mg PO Q6H PRN pain #30 tabs 09/27/23 (Tylenol Extra Strength) naproxen 500 mg tablet 500 mg PO BID #14 tabs 06/01 Allergies Allergy/AdvReac Type Severity Reaction Status Date / Time No Known Allergies (No Known Allergy Verified 06/01/25 10:54 Allergies*) Review of Systems Review of Systems: as per hpi Yes all other systems are reviewed and are negative Constitutional: Constitutional: Reports as per HPI [facility] Past Medical History Medical History Hypertension Social History Social History Alcohol intake: current Alcohol intake frequency: holidays/special occasions only Alcohol type: beer Patient Tobacco Use Status: Former Tobacco user Physical Exam ED Vital Signs: Vital Signs - 24 hr 06/01/25 10:50 Temperature 98.0 F Pulse Rate 99 Respiratory Rate 20 Blood Pressure 185/96 H Pulse Oximetry 97 Oxygen Delivery Method Room Air BMI result Body Mass Index 33.8 Vital signs have been reviewed and appear to be correct. Blood pressure elevated. Heart rate normal. Respiratory rate normal. Temperature normal. Oxygen saturation normal. Const General: cooperative, healthy appearing and no acute distress Orientation/consciousness: oriented to person, oriented to place, oriented to time and patient oriented x3 Limitations: no limitations HENMT Head: Yes normocephalic and Yes atraumatic Ears: external ears normal General nose exam: Normal external nose present Face and sinus: Yes face symmetric Mouth: oropharynx normal and moist mucous membranes Throat: Yes uvula midline Eyes Pupils: Equal, round and reactive pupils present Neck Neck: Yes normal visual inspection and Yes supple Resp Effort & Inspection: normal respiratory effort and able to speak in complete sentences Auscultation: clear to auscultation bilaterally Cardio Rate: regular rate Rhythm: regular rhythm Heart sounds: S1 normal heart sound present and S2 normal heart sound present GI Palpation (GI): Soft to palpation and nontender Auscultation: normoactive bowel sounds General: Yes no CVA tenderness Back/Spine/Pelvis Back: no CVA tenderness Skin General skin exam: elasticity normal and turgor normal Neuro General: oriented to person, oriented to place, oriented to time, patient oriented x3, moves all extremities, no focal motor deficits and CN's II-XI intact bilaterally Cranial nerves: Yes Equal, round and reactive pupils present Cognition (Neuro): normal cognition Extrem General: Yes full ROM, Yes no pedal edema and Yes no calf tenderness Right lower extremity: foot Details: normal capillary refill, tenderness Location: of the plantar foot (at 1st MTP), toes with normal ROM and vascular exam Details: dorsalis pedis pulse present, posterior tibial pulse present and normal capillary refill; no ecchymosis Psych Mental Status: mental status grossly normal Affect: normal affect Thought process: Normal thought process present Course Course Course Narrative: This is a rapid medical exam performed by Kapil Dominguez NP: Additional HPI, ROS, PE not included below will be deferred to primary provider. Patient is a 74y/o M presenting to the ED with complaint of pain to plantar surface of R foot, worse for the past 3-4 days. Falling due to the pain. Denies head strike with falls, states has falling onto his bed because he has this foot pain getting out of bed. Plan: x-ray Medical Decision Making Medical Decision Making MDM Narrative: Patient is a 74y/o M presenting to the ED with complaint of pain to plantar surface of R foot, worse for the past 3-4 days. On exam patient is awake, A+Ox3, VS WNL, afebrile, normal neurological exam without focal deficits, physical exam findings as above. Given reported symptoms and physical exam findings, initial differential includes but is not limited to osteoarthritis, plantar fasciitis, stress fracture. X-ray right foot notable for worsening osteoarthritis. My interpretation is in agreement with the radiologist's interpretation. Results discussed with patient and all questions answered. Will refer to Podiatry for further evaluation and management. Will treat with course of naproxen to decrease inflammation. Return precautions discussed. Patient verbalized understanding of and agreement with plan. Differential Diagnosis Differential Diagnoses: The differential diagnosis associated with the presentation includes As per [facility] Admission/Observation Consideration of admission/observation: Escalation of care including admission/observation considered Patient would have been admitted to the hospital and transferred to appropriate facility had their clinical presentation warranted hospital admission. Independent Interpretation I performed an independent interpretation of an: Plain X-Ray Interpretation: Right foot x-ray notable for worsening osteoarthritis with hallux valgus deformity. Radiology Impression Discussion of test interpretation with radiology: I have reviewed the radiologist's reading. Radiologist Impression: XR/XR foot RT min 3V IMPRESSION: Increasing osteoarthritis involving first MTP joint with persistent hallux valgus deformity across the first MTP joint. The lateral sesamoid of the first metatarsal head is laterally subluxed. Medial sesamoid is not identified and may have been surgically resected. External Record Review External record reviewed: Inpatient record, Office record and Outpatient record Prescription Management I considered prescription management with: Pain Medication Discharge Plan Discharge Clinical Impression: Osteoarthritis of foot, right Patient Disposition: Home, Self-Care Additional Instructions: You were evaluated in the emergency department today for right foot pain. Your x-ray showed worsening arthritis in your foot. You have been prescribed naproxen which is an anti-inflammatory medication. Take this as prescribed. You are also being referred to a road worker for further evaluation of your symptoms. Return to the emergency department if you develop worsening pain, new weakness, numbness, tingling, change of color in your foot or any other new or concerning symptoms. Prescriptions: New naproxen 500 mg tablet 500 mg PO BID Qty: 14 0RF No Action acetaminophen [Tylenol Extra Strength] 500 mg tablet 500 mg PO Q6H PRN (Reason: pain) Qty: 30 0RF amlodipine 10 mg tablet 10 mg PO DAILY allopurinol 100 mg tablet 100 mg PO DAILY furosemide 20 mg tablet 20 mg PO DAILY Referrals: Iban Jackson DPM [Private Branch Exchange Service Advisor, Podiatry] Clinical Impression: Osteoarthritis of foot, right Print Language: Egyptian
[2025-06-01 16:31] VITALS: BP 185/96; PULSE 99; RESP 20; TEMP 36.7; O2SAT 97
--- OUTSIDE RECORDS SUMMARY | 2025-06-01 17:28 | XMS_ITS | Clinical Summary ---
Author Organization [address] [facility] Address [address] [place] [address] Phone Care Team Providers Care Title I Director Name Role Phone Yaneth Davis MD Primary Care Prov ider Allergies No known active allergies Medications vitamin E acetate (VITAMIN E ORAL) 1 (one) time each day. 0 Active allopurinoL (ZYLOPRIM) 100 mg tablet Take 1 tablet (100 mg total) by mouth 1 (one) time each day. 90 each 3 5 12/19/19 26 Active furosemide (LASIX) 20 mg tablet Take 1 tablet by mouth once daily 30 tablet 5 Active losartan (Cozaar) 50 mg tablet Take 1 tablet (50 mg total) by mouth 1 (one) time each day. 30 each 2 5 08/12/19 26 Active losartan (Cozaar) 25 mg tablet Take 1 tablet (25 mg total) by mouth 1 (one) time each day. 30 each 2 5 05/14/20 25 Discontinued Active Problems Problem Noted Date Diagnosed Date [...] hepatitis C virus in fection (CMS/HCC V24, [facility] V28) 06/04/2007 Overview (04/27/2024): Treated 2782-5961, sustained viral response, no evidence of cirrhosis. Viral load zero 2009. Hydrocele 02/21/2007 Essential hypertension, benign 08/28/2006 Assessment & Plan (05/14/2025 11:35 AM EDT): Blood pressure is not well-controlled. Today 160/80, currently on Furosemide 20mg, losartan 25 mg a day, will increase to 50mg. Will follow-up in 1 month. Encouraged to follow a low-salt diet and exercise as much as he can. Assessment & Plan (03/19/2025 2:14 PM EDT): Blood pressure is not well-controlled. Today 143/80. Patient not taking amlodipine regularly. He is afraid of side effects and would like to switch his medication to another 1. Will discontinue amlodipine. Will start losartan 25 mg a day. Will follow-up in 1 month. Encouraged to follow a low-salt diet and exercise as much as he can. Orders: Lipid panel with reflex to direct LDL; Future Basic metabolic panel; Future Uric acid; Future Assessment & Plan (12/17/2024 11:37 AM EDT): Assessment & Plan (06/05/2024 1:50 PM EST): BP is well controlled today 122/68, on Amlodipine 10mg day. Recommeded to follow a low salt diet. Orders: Comprehensive metabolic panel; Future Lipid panel with reflex to direct LDL; Future Encounters Date Type Department Care Team Description 05/14/2025 11:15 AM EDT Office Visit Adult Medicine [address] [phone] Yaneth Quintanilla MD Essential hypertension, benign (Primary Dx); Mixed hyperlipidemia 03/19/2025 12:00 PM EDT Office Visit Adult Medicine [address] [phone] Yaneth Quintanilla MD Essential hypertension, benign (Primary Dx); Mixed hyperlipidemia; Urinary incontinence, unspecified type; Prostate cancer screening; Screening for depression from Last 3 Months Immunizations Immunization Administration Dates Next Due H1N1 Inj Preservative Free 06/22/2009 Hepatitis B (Imwneep-F-Xtzji , Recombivax HB-Adult) 19yo and older 07/10/2007,02/07/2007,01/10/2007 Influenza trivalent, with pr eservative (Fluzone; Afluria) 6mo and older 05/02/2011,06/22/2009 Td Tetanus diptheria (Tdvax) 7yo and older 07/07 Tdap Tetanus diptheria acell ular pertussis (Boostrix; Adacel) 7yo and older 08/28/2006 Surgical History Surgery Date Site/Laterality Comments OTHER SURGICAL HISTORY 04/08/07 PROCEDURE: NE BIOPSY LIVER NEEDLE PERCUTANEOUS; COMMENT: Chronic Hepatitis, grade3-4, stage 3-4. piecemeal and bridging necrosis. COLONOSCOPY 05/05/07 PROCEDURE: NE COLONOSCOPY STOMA DX INCLUDING COLLJ SPEC SPX; COMMENT: Up to cecum, normal colon exam, but limited examination due poor preparation at the cecum and ascending colon COLONOSCOPY 2008 PROCEDURE: NE COLONOSCOPY FLX DX W/COLLJ SPEC WHEN PFRMD; COMMENT: good prep, normal COLONOSCOPY PROCEDURE: HISTORICAL COLONOSCOPY; COMMENT: Performed October 02, 2019 with tubular adenomas removed FOOT SURGERY Right PROCEDURE: [...] Colonoscopy performed on October 02, 2019 with tubular adenomas removed from transverse colon angiodysplastic [...] for your loved ones. For example, child adolescent care or elderly care for an older adult? [...] Date Recorded What is your living situation? Unrecognized valu e 06/05/2024 Interpersonal Safety Answer Date Record ed Physical Abuse Unrecognized value 07/31/2024 Verbal Abuse Unrecognized value 07/31/2024 Sex and Gender Information Value Date Recorded Sex Assigned at Male 07/31/2024 10:36 AM EST Legal Sex Male 12:36 PM EST Gender Identity Male 07/31/2024 10:36 AM EST Sexual Orientation Straight 07/31/2024 10 :36 AM EST Obstetrics History Last Filed Vital Signs Vital Sign Reading Time Taken Comments Blood Pressure 161/87 05/14/2025 11:12 AM EDT recheck with five min Pulse 94 05/14/2025 11:09 AM EDT Temperature 36.8 C (98.2 F) 05/14/2025 11:09 AM EDT Respiratory Rate 14 05/14/2025 11:0 9 AM EDT Oxygen Saturation 97% 05/14/2025 11: 09 AM EDT Inhaled Oxygen Concentration - - Weight 82.2 kg (181 lb 3.2 oz) 05/14/2025 11:09 AM EDT Height 154.9 cm (5' 1 ) 05/14/2025 11:0 9 AM EDT Body Mass Index 34.24 05/14/2025 11:09 AM EDT Plan of Treatment Upcoming Encounters Date Type Department Care Team (Late st Contact Info) Description 06/15/2025 11:30 AM EST Office Visit Adult Medicine [address] [phone] Ashley Higgins PA [address] [place], [place] 07/19/2025 1:00 PM EST Office Visit Orthopedic Surgery - [place] [address] [phone] Pravin Randolph, DPM [address] [phone] Health Maintenance Due Date Last Done Comments Hepatitis A Vaccines (1 of 2 - Risk 2-dose series) 1969 RSV Immunization Adult Patients (1 - Risk 50-74 years 1-dose series) 2000 Abdominal Aortic Aneurysm (AAA) Screen 06/30/2022 Medicare Annual Wellness Visit 03/05/2025 03/05/2024 Social Influencers of Health Screening 06/05/2025 06/05/2024 Falls Risk Assessment 03/19/2026 03/19/2025, 024 Hypertension/CHF/CAD Annual BMP Blood Test 03/19/2026 03/19/2025, 12/18/2024, 10/03/2023 Colorectal Cancer Screening: Colonoscopy 10/01/2029 10/02/2019 Cholesterol Screening (Lipid Panel) 03/19/2030 03/19/2025, 12/18/2024, 12/18/2024, Additional history exists DTaP,Tdap,and Td Vaccines (3 - Td or Tdap) 07/07/2031 07/07/2021, 08/28/2006 Hepatitis B Vaccines Completed 07/10/2007, 02/07/2007, 01/10/2007 Influenza Vaccine Discontinued 05/02/2011, , 06/22/2009 Hepatitis C Screening Completed 07/06/2021 Depression Screening Completed 03/19/2025, 03/05/20 24 COVID-19 Vaccine Discontinued HIB Vaccines Aged Out [...] Vaccines Discontinued Medical Devices Implanted Type Area [employer] Device Identifier Shelf Expiration Date Model / Serial / Lot Nail Minibunion Offset Short 3.5mm - Sna - [id number] Implanted:Qty: 1 on 07/31/2024 by Pravin Randolph DPM at [facility] Internal and External Fixation Left: First Toe [employer] 02/14/2028 [id number] / NA / [id number] ++Dnu+Dup Use [id number] Screw Lcking 3.0x22mm H8 Minibunion - Sna - [id number] Implanted:Qty: 1 on 07/31/2024 by Pravin Randolph DPM at [facility] Internal and External Fixation Left: First Toe [employer] 09/04/2027 [id number] / NA / [id number] Screw Cannulated Compress Headless Short Thrd Ti 2.5x26mm - Sna - [id number] Implanted:Qty: 1 on 07/31/2024 by Pravin Randolph DPM at [facility] Internal and External Fixation Left: First Toe [employer] 04.333.12 6 / NA / NA Minibunion Non Locking Screw Implanted:Qty: 1 on 07/31/2024 by Pravin Randolph DPM at [facility] Left: First Toe [employer] 04/07/2028 [id number] / NA / [id number] Procedures Procedure Name Priority Date/Time Associated Diagnosis Comments LIPID PANEL WITH REFLEX TO DIRECT LDL Routine 03/19/2025 2:53 PM EDT Essential hypertension, benign Mixed hyperlipidemia BASIC METABOLIC PANEL Routine 03/19/2025 2:53 PM EDT Essential hypertension, benign Mixed hyperlipidemia PROSTATE SPECIFIC ANTIGEN SCREEN Routine 03/19/2025 2:53 PM EDT Urinary incontinence, unspecified type Prostate cancer screening URIC ACID Routine 03/19/2025 2:53 PM EDT Essential hypertension, benign Mixed hyperlipidemia DEPRESSION SCREENING Routine 03/05/2024 FALLS RISK ASSESSMENT Routine 12/06/2023 HEPATITIS C SCREENING Routine 07/06/2021 COLONOSCOPY Routine 10/02/2019 from Last 3 Months or Most Recently Relevant to Health Maintenance Results * Prostate specific antigen screen (03/19/2025 2:53 PM EDT) PSA 1.58 0.00 - 4.00 ng/mL LAB CHEMISTRY METHOD 03/19/2025 5:24 PM EDT [facility] Blood Venous blood specimen / Unknown Venipuncture / Unknown 03/19/2025 2:53 PM EDT 03/19/2025 2:53 PM EDT Narrative [facility] - 03/19/2025 5:24 PM EDT The Siemens Advia Centaur Chemiluminescent Immunoassay is used. Results obtained with different assay methods or kits cannot be used interchangeably. Results cannot be interpreted as absolute evidence of the presence or absence of malignant disease. us Yaneth Davis MD LAB BLOOD ORDERABL ES Final Result [facility] [address] [place] [address], [place] [phone] * (ABNORMAL) Lipid panel with reflex to direct LDL (03/19/2025 2:53 PM EDT) Pathologist [facility] Cholesterol 174 0 - 200 mg/dL LAB CHEMISTRY METHOD 03/19/2025 5:30 PM EDT [facility] Triglycerides 287(H) 0 - 150 mg/dL LAB CHEMISTRY METHOD 03/19/2025 5:30 PM EDT [facility] HDL 101 >=40 mg/dL LAB CHEMISTRY METHOD 03/19/2025 5:30 PM EDT [facility] LDL Calculated 16 0 - 100 mg/dL LAB CHEMISTRY METHOD 03/19/2025 5:30 PM EDT [facility] Comment:Estimated LDL Calcul ated using equation: Total cholesterol - HDL cholesterol - (Triglycerides/5) VLDL Cholesterol Jimmie 57.4 mg/dL LAB CHEMISTRY METHOD 03/19/2025 5:30 PM EDT [facility] Non HDL Chol. (LDL+VLDL) 73 <145 mg/dL LAB CHEMISTRY METHOD 03/19/2025 5:30 PM EDT [facility] Chol/HDL Ratio 1.7 0.0 - 4.4 LAB CHEMISTRY METHOD 03/19/2025 5:30 PM EDT [facility] Blood Venous blood specimen / Unknown Venipuncture / Unknown 03/19/2025 2:53 PM EDT 03/19/2025 2:53 PM EDT us Yaneth Davis MD LAB BLOOD ORDERABL ES Final Result [facility] [address] [place] [address], * Uric acid (03/19/2025 2:53 PM EDT) Uric Acid 8.5 3.7 - 9.2 mg/dL LAB CHEMISTRY METHOD 03/19/2025 5:16 PM EDT [facility] Blood Venous blood specimen / Unknown Venipuncture / Unknown 03/19/2025 2:53 PM EDT 03/19/2025 2:53 PM EDT us Yaneth Davis MD LAB BLOOD ORDERABL ES Final Result [facility] [address] [place] [address], [place] [phone] * Basic metabolic panel (03/19/2025 2:53 PM EDT) Sodium 139 133 - 145 mmol/L LAB CHEMISTRY METHOD 03/19/2025 5:16 PM EDT [facility] Potassium 3.7 3.5 - 5.5 mmol/L LAB CHEMISTRY METHOD 03/19/2025 5:16 PM [facility] Chloride 105 96 - 110 mmol/L LAB CHEMISTRY METHOD 03/19/2025 5:16 PM [facility] CO2 25 21 - 32 mmol/L LAB CHEMISTRY METHOD 03/19/2025 5:16 PM [facility] Anion Gap 9 3 - 11 LAB CHEMISTRY METHOD 03/19/2025 5:16 PM [facility] Glucose 100 70 - 100 mg/dL LAB CHEMISTRY METHOD 03/19/2025 5:16 PM [facility] BUN 10 5 - 25 mg/dL LAB CHEMISTRY METHOD 03/19/2025 5:16 PM [facility] Creatinine 0.78 0.70 - 1.30 mg/dL LAB CHEMISTRY METHOD 03/19/2025 5:16 PM [facility] eGFR 94 >=60 mL/min/1. 73m2 LAB CHEMISTRY METHOD 03/19/2025 5:16 PM [facility] Comment:Calculation based on the Chronic Kidney Disease Epidemiology Collaboration (CKD-EPI) equation refit without adjustment for race. BUN/Creatinine Ratio 12.8 LAB CHEMISTRY METHOD 03/19/2025 5:16 PM [facility] Calcium 9.5 8.5 - 10.5 mg/dL LAB CHEMISTRY METHOD 03/19/2025 5:16 PM EDT [facility] Blood Venous blood specimen / Unknown Venipuncture / Unknown 03/19/2025 2:53 PM EDT 03/19/2025 2:53 PM EDT Yaneth Davis MD LAB BLOOD ORDERABL ES Final Result [facility] [address] [place] [address], [place] [phone] * Depression Screening (03/05/2024) [facility] Depression Screening abstracted [facility] Provider HEALTH MAINTENANCE Final Result * Falls Risk Assessment (12/06/2023) [facility] Falls Risk Assessment abstracted [facility] Provider HEALTH MAINTENANCE Final Result * Hepatitis C Screening (07/06/2021) [facility] Hepatitis C Screening abstracted [facility] Provider HEALTH MAINTENANCE Final Result * Colonoscopy (10/02/2019) [facility] Colonoscopy no interpretation , abstracted Anatomical Region Laterality Modality Other [facility] Provider HEALTH MAINTENANCE Final Result from Last 3 Months or Most Recently Relevant to Health Maintenance Insurance MEDICARE Advance Directives * Full Code - Default [...] currently active code status orders. Care Teams Title I Director Relationship Specialty Start Date End Date Yaneth Davis MD [address] [place] [phone] PCP - General Internal Medicine 01/18/22
== END 2025-06-01 16:32 | disposition home or self-care (01) ==
PROVIDERS: Emergency Provider Emergency Medicine
DX: M19.071 Primary osteoarthritis, right ankle and foot (principal); I10 Essential (primary) hypertension
CPT/HCPCS: 73630; 99282; 99283

== ENCOUNTER → 2025-06-01 10:53 | Outpatient (BNV) | payer MEDICARE, SELFPAY | PROVIDERS: Visit Provider Radiology Diagnostic Radiology | DX: M19.071 Primary osteoarthritis, right ankle and foot (principal) | CPT/HCPCS: 73630 ==